=== PATIENT | male | born 1945 | race Caucasian/White ===

== ENCOUNTER 2024-06-07 13:19 | Inpatient (IN) | payer MEDICARE, SELFPAY ==
--- NOTE | 2024-06-07 | ECG_ITS ---
Test Reason : ARRYTHMIA Blood Pressure : */* mmHG Vent. Rate : 139 BPM Atrial Rate : * BPM P-R Int : * ms QRS Dur : 112 ms QT Int : 260 ms P-R-T Axes : * 45 -72 degrees QTcB Int : 395 ms Atrial fibrillation with rapid ventricular response Low voltage QRS Incomplete right bundle branch block Nonspecific T wave abnormality Abnormal ECG When compared with ECG of 07-Jun-2024 15:46, No significant change was found Referred By: Chris Musa Electronically Signed By: VELVET ZAMORANO MD
--- NOTE | ~2024-06-07 | CT_ITS ---
EXAMINATION: CT HEAD WITHOUT IV CONTRAST HISTORY: Change in mental status, rule out bleed, stroke. TECHNIQUE: Unenhanced helical CT of the head was performed per standard departmental protocol. Coronal and sagittal reformats of the head were also evaluated. One or more of the following techniques was used for dose reduction: Automated exposure control, adjustment of the mA and/or kV according to patient size, use of iterative reconstruction technique. DLP: 772 mGy-cm COMPARISON: There are no prior studies for comparison. FINDINGS: BRAIN: There is diffuse prominence of the ventricular system and cortical sulci, consistent with atrophy. Periventricular and subcortical white matter hypodensities are noted which are nonspecific, but often seen in the setting of small vessel ischemic disease. There is no mass effect or midline shift. No intra- or extra-axial fluid collections are identified. SINUSES: The visualized paranasal sinuses are clear. The mastoid air cells and middle ear cavities are well pneumatized. ORBITS: The visualized orbits are unremarkable. BONES/SOFT TISSUES: The extracranial soft tissues are unremarkable. The calvarium is intact. No suspicious lytic or sclerotic lesions. CT/CT head/brain wo IV con IMPRESSION: No acute intracranial abnormality. Electronically signed by: Steven Robins MD 06/07/2024 03:13 PM [facility]
--- NOTE | ~2024-06-07 | XR_ITS ---
EXAMINATION: XR CHEST CLINICAL INFORMATION: F/U acute CHF/overload, rapid a-fib COMPARISON: 06/07/2024. CT chest 06/07/2024. TECHNIQUE: AP portable view of the chest was obtained. FINDINGS: Cardiac enlargement noted. Mediastinal and hilar contours otherwise grossly normal. Aorta is calcified. Patchy left basilar opacities, possibly atelectasis versus pneumonia. No evidence of interstitial pulmonary edema. Trace left effusion seen. The right effusion seen on CT is not well appreciated on this portable chest x-ray. There are degenerative changes of the spine and bilateral shoulder joints. No acute bony or soft tissue abnormalities. XR/XR chest 1V IMPRESSION: 1. Cardiomegaly. No interstitial edema is evident. 2. Left base opacity, possibly atelectasis versus pneumonia. Small left effusion seen. 3. Right lung appears clear. 4. The right effusion seen on CT is not well appreciated on this AP portable exam. Electronically signed by: Tony Michele MD 06/10/2024 08:51 AM [facility] [place]
--- NOTE | ~2024-06-07 | XR_ITS ---
EXAMINATION: XR CHEST 1 VIEW HISTORY: Weakness, rule out pneumonia COMPARISON: There are no prior studies for comparison. FINDINGS: Two AP portable views of the chest performed at 3:00 PM is submitted. There is partial opacification of the left lung base which may represent atelectasis, pneumonia, or pleural fluid. The right lung is clear. There is no pneumothorax or pulmonary vascular congestion. The heart is normal in size. There is degenerative disc disease of the spine. XR/XR chest 1V IMPRESSION: Partial opacification of the left lung base, which may represent atelectasis, pneumonia, or pleural fluid. Electronically signed by: Steven Robins MD 06/07/2024 03:20 PM [facility]
--- NOTE | ~2024-06-07 | CT_ITS ---
CLINICAL HISTORY: pna CT chest without contrast Comparison: CR/SR - XR CHEST 1V - 06/07/24 14:59 EST Findings: Moderate cardiomegaly. The visualized thyroid and mediastinum are unremarkable. Small bilateral pleural effusions, right more than left. . There is associated atelectatic changes of the lungs. Small amount of free fluid is noted along the liver and the spleen. Cholelithiasis. No acute fractures. IMPRESSION: Small bilateral pleural effusions, and perihepatic as well as perisplenic free fluid along with moderate cardiomegaly likely represent fluid overload/CHF. No focal consolidation to suggest pneumonia. This document has been electronically signed by: Zenia Jiménez MD on 06/07/2024 19:21:05
--- NOTE | ~2024-06-07 | XR_ITS ---
CLINICAL HISTORY: Increased shortness of breath, repeat XR, R O CHF 1 view chest x-ray Comparison: CR/SR - XR CHEST 1V - 06/07/24 14:59 EST Findings: Moderate cardiomegaly. Slight interstitial prominence in both lungs. Small bilateral pleural effusions. Low lung volume. Heart size is normal. No acute fracture. IMPRESSION: Moderate cardiomegaly with small bilateral pleural effusions and interstitial prominence in both lungs may represent mild pulmonary edema/fluid overload. This document has been electronically signed by: Zeina Jiménez MD on 06/07/2024 19:38:41
--- NOTE | ~2024-06-07 | CT_ITS ---
EXAMINATION: CT ABDOMEN PELVIS WITHOUT IV CONTRAST HISTORY: sepsis, BLUE COMPARISON: There are no prior studies for comparison. TECHNIQUE: CT scan of the abdomen and pelvis was performed without contrast using standard departmental protocol. Coronal and sagittal reformatted images were generated and reviewed. Oral contrast material was not administered at the request of the referring physician. This CT exam was performed with one or more of the following dose reduction techniques: automated exposure control, adjustment of the mA and/or kV according to patient size, use of iterative reconstruction technique. DLP: 912 mGy-cm FINDINGS: LOWER CHEST: There are small bilateral pleural effusions. There is subsegmental atelectasis the lung bases. There are calcified pleural plaques at both lung bases consistent with prior as best as exposure. CARDIOVASCULATURE: The heart is enlarged. There is no pericardial effusion. LIVER: The liver is normal in size and contour. The liver has an unremarkable unenhanced appearance. GALLBLADDER / BILE DUCTS: There is cholelithiasis. There is no intra or extrahepatic biliary ductal dilatation. SPLEEN: The spleen is normal in size and has an unremarkable unenhanced appearance. PANCREAS: The pancreas has an unremarkable unenhanced appearance. ADRENAL GLANDS: Unremarkable. KIDNEYS/RETROPERITONEUM: No renal calculi are identified. There is no hydronephrosis. There is a 4.9 cm right renal parapelvic cyst. LYMPH NODES: No retroperitoneal lymphadenopathy is identified in the abdomen or pelvis. VASCULATURE: The abdominal aorta demonstrates atherosclerotic calcification, but is normal in caliber. MESENTERY/PERITONEUM: There is a small amount of fluid around the liver and spleen and in the pelvis. No masses. There is no free intraperitoneal gas. STOMACH: There is a small hiatal hernia. The remainder of the stomach is collapsed. SMALL BOWEL: The small bowel is normal in caliber. COLON: There is diverticulosis of the sigmoid colon, without evidence of diverticulitis. APPENDIX: Normal. URINARY BLADDER/PELVIC ORGANS: The urinary bladder is collapsed with a Arias catheter. There are calcifications of the prostate. BONES / SOFT TISSUES: There is anasarca. There is degenerative disc disease of the spine. There is severe osteoarthritis of both hips. CT/CT abdomen pelvis wo IV con IMPRESSION: 1. Small bilateral pleural effusions. Anasarca. 2. Small amount of ascites in the upper abdomen and pelvis. 3. Cholelithiasis. 4. Sigmoid diverticulosis without evidence of diverticulitis. Electronically signed by: Steven Robins MD 06/08/2024 02:58 PM EST
[2024-06-07 13:50] VITALS: BP 121/64; PULSE 120; O2SAT 97
[2024-06-07 14:26] VITALS: BP 133/70; PULSE 117; RESP 24; TEMP 36.7; O2SAT 96; BMI 24.0
--- NOTE | 2024-06-07 14:33 | ED_ITS ---
HPI - Altered Mental Status General Chief Complaint: Altered Mental Status Stated Complaint: SOB,WHEEZE,ALTERED,LETHARGIC,ANS ?'S FROM SNF Time Seen by Provider: 06/07/24 14:31 Source: patient Mode of arrival: EMS Limitations: altered mental status History of Present Illness ED Provider: Dr. Chris Musa HPI narrative: 78-year-old male with a history of diabetes mellitus, malnutrition, hypertension, hyperlipidemia, pulmonary hypertension, chronic kidney disease stage 3, paroxysmal atrial fibrillation, COPD, muscle wasting with atrophy, depression, systolic congestive heart failure, DNR/DNI sent in by ambulance from his [place] [facility] [place] [facility] facility [facility] for evaluation increased confusion over 2 days and shortness of breath. This information was obtained from ED nursing notes. I did review the paperwork sent in with the patient but there is no notes on patient's condition over the past 2 days. The patient states that he has been feeling weak for months. He has no complaints. He was oriented to person, he knows that he was in the hospital, he was able to tell me the month but not the year. He was able to tell me his age. Related Data Home Medications ?Medication ?Instructions ?Recorded ?Confirmed acetaminophen 325 mg tablet 975 mg PO Q8H PRN Fever Or Pain 06/07/24 06/07/24 apixaban 5 mg tablet (Eliquis) 5 mg PO BID 06/07/24 06/07/24 atorvastatin 20 mg tablet 20 mg PO BEDTIME 06/07/24 06/07/24 bisacodyl 10 mg rectal suppository 10 mg KS DAILY PRN Constipation 06/07/24 06/07/24 (Dulcolax (bisacodyl)) dapagliflozin propanediol 5 mg 5 mg PO DAILY 06/07/24 06/07/24 tablet (Farxiga) duloxetine 60 mg capsule,delayed 60 mg PO DAILY 06/07/24 06/07/24 release sprinkle finasteride 5 mg tablet 5 mg PO DAILY 06/07/24 06/07/24 furosemide 40 mg tablet 40 mg PO BID 06/07/24 06/07/24 gabapentin 100 mg capsule 100 mg PO Q8H 06/07/24 06/07/24 guaifenesin 100 mg/5 mL oral liquid 100 mg PO Q6H PRN Cough 06/07/24 06/07/24 ipratropium 0.5 mg-albuterol 3 mg 3 ml inhalation Q6H 06/07/24 06/07/24 (2.5 mg base)/3 mL nebulization soln lidocaine 4 % topical patch 1 patch topical DAILY 06/07/24 06/07/24 magnesium hydroxide 400 mg/5 mL 30 ml PO BEDTIME PRN Constipation 06/07/24 06/07/24 oral suspension (Milk of Magnesia) melatonin 5 mg tablet 5 mg PO BEDTIME 06/07/24 06/07/24 metformin 500 mg tablet,extended 500 mg PO BID 06/07/24 06/07/24 release 24 hr metoprolol tartrate 50 mg tablet 50 mg PO BID 06/07/24 06/07/24 oxycodone 5 mg tablet 5 mg PO Q8H PRN Pain 06/07/24 06/07/24 pantoprazole 40 mg tablet,delayed 40 mg PO DAILY 06/07/24 06/07/24 release potassium chloride 20 mEq 20 meq PO DAILY 06/07/24 06/07/24 tablet,extended release ropinirole 0.25 mg tablet 0.25 mg PO BEDTIME 06/07/24 06/07/24 sodium phosphates 19 gram-7 118 ml KS DAILY PRN Constipation 06/07/24 06/07/24 gram/118 mL enema (Fleet Enema) tamsulosin 0.4 mg capsule 0.8 mg PO BEDTIME 06/07/24 06/07/24 triamcinolone acetonide 40 mg/mL 40 mg IM DAILY 06/07/24 06/07/24 suspension for injection Allergies Allergy/AdvReac Type Severity Reaction Status Date / Time lisinopril Allergy Unknown Verified 06/07/24 14:28 [facility] Social History Social History Smoked in Last 30 Days: No Use of substances other than those prescribed or required for medical reasons: No Advance Directives: No Advance Directives Information Provided: Yes Physical Exam ED Vital Signs: Vital Signs - 24 hr 06/07/24 14:26 06/07/24 20:00 06/07/24 21:09 Temperature 98.1 F 97.6 F Pulse Rate 117 H 126 H 145 H Respiratory Rate 24 H 25 H Blood Pressure 133/70 107/68 118/84 Pulse Oximetry 96 97 Oxygen Delivery Method Room Air Room Air 06/07/24 21:25 Temperature Pulse Rate Respiratory Rate Blood Pressure 117/81 Pulse Oximetry Oxygen Delivery Method BMI result Body Mass Index 24.0 Vital signs revealed elevated heart rate of 117 and elevated respiratory rate of 24 Exam: General: Awake, oriented to person, age and month but not the year. Answers questions appropriately Head: Normocephalic, atraumatic EENT: PERRL, Lids normal, sclera normal, conjunctiva normal, nose normal , ears normal, throat without erythema or exudates Neck: Supple, no adenopathy Lung: breath sounds symmetric, no wheezing, rales or rhonchi Chest: symmetric movement, nontender Heart: regular rate and rhythm, normal S1, S2 no murmurs or rubs Abdomen: soft, non-tender, nondistended, normal bowel sounds Back: no vertebral tenderness, no CVAT Extremities: no deformities, moves all extremities symmetrically but has generalized weakness Neuro: Awake, alert, speech is slow but comprehensible, no aphasia, no dysarthria, cranial nerves intact, moves all extremities symmetrically Psych: Pleasant, cooperative Medications Administered Discontinued Medications Generic Name Dose Route Start Last Admin Trade Name Freq PRN Reason Stop Dose Admin Ceftriaxone Sodium 1 gm 06/07/24 16:25 06/07/24 17:59 Ceftriaxone Sodium 1 Gm Vial IVPUSH 06/07/24 16:26 1 gm ONCE ONE Administration Furosemide 60 mg 06/07/24 21:11 06/07/24 21:25 Furosemide 100 Mg/10 Ml Vial IVPUSH 06/07/24 21:12 60 mg ONCE ONE Administration Protocol Sodium Chloride 1,000 mls @ 999 mls/hr 06/07/24 14:42 06/07/24 17:55 Ns IV 06/07/24 15:42 Infused .Q1H1M STA Infusion Azithromycin 500 mg/ Sodium 250 mls @ 125 mls/hr 06/07/24 16:25 06/07/24 20:00 Chloride IV 06/07/24 18:24 Infused ONCE ONE Infusion Medical Decision Making Medical Decision Making MDM Narrative: 78-year-old male with a history of diabetes mellitus, malnutrition, hypertension, hyperlipidemia, pulmonary hypertension, chronic kidney disease stage 3, paroxysmal atrial fibrillation, COPD, muscle wasting with atrophy, depression, systolic congestive heart failure, DNR/DNI sent in by ambulance from his [place] [facility] [place] facility facility [facility] for evaluation increased confusion over 2 days and shortness of breath. This information was obtained from ED nursing notes. I did review the paperwork sent in with the patient but there is no notes on patient's condition over the past 2 days. Vital signs revealed an elevated heart rate and elevated respiratory rate otherwise was unremarkable. Physical examination revealed a slow speech and generalized weakness but otherwise was unremarkable. 16:22 Differential diagnosis: ?Includes but is not limited to stroke, myocardial infarction, myocardial ischemia, pneumonia, urinary tract infections, electrolyte abnormalities, anemia Course: 16:22 My independent interpretation patient's laboratory evaluation is as follows: 06/07/2024 at 05:00 WBC elevated 17,900 with a left shift 86 neutrophils and 5 lymphocytes. Elevated BUN and creatinine of 46 and 2.0 above the patient's baseline of 25 and 1.61 on 06/02/2024. Glucose was elevated 165. 06/07/2024 at 17:26 hours: Lactic acid elevated 5.4. WBC elevated 17,300. Microcytic anemia with an H&H of 11.3 and 35.5. Venous pH was 7.40 with a pCO2 Influenza, RSV and COVID-19 negative. BNP was elevated 4751. LFTs were normal. BUN and creatinine were similar to earlier in the day 48 and 1.92. BNP was elevated 4751. Troponin was elevated at 48.1 with 3 hour troponin due at 19:15 hours. The patient did receive 1750 cc of normal saline. Given his low EF of 20% and elevated BNP the patient will not be given a 30 cc/kilogram normal saline bolus due to systolic congestive heart failure. Patient will be treated for possible pneumonia with ceftriaxone 1 IV and azithromycin 500 mg IV. Chest x-ray concerning for left lower lobe infiltrate. Patient was treated with ceftriaxone 1 g IV and azithromycin 500 mg IV. I did discuss the patient's presentation over tiger text with the covering hospitalist, Dr. Owusu and the patient will be admitted for further treatment 19:43 Repeat chest x-ray on my review did not reveal any acute congestive heart failure 20:40 Repeat troponin was not significantly changed from the 1st troponin. Repeat lactic acid did go up to 8.6. Urinalysis revealed positive protein, positive glucose, positive blood, moderate leukocyte esterase. Microscopic revealed 3-5 WBCs, 6-10 RBCs, 0-2 squamous cells and 4+ bacteria. 21:[address] scan chest in his consistent with CHF. Patient was ordered to get Lasix 60 mg IV. Repeat 12 EKG revealed atrial fibrillation with a rapid ventricular response of [address] segment elevation or depression. And I did discuss these findings with the covering hospitalist, Dr. Choi. Admission/Observation Consideration of admission/observation: Escalation of care including admission/observation considered (Yes) Consult Healthcare Provider Management of the patient was discussed with: Hospitalist Lab Data MDM Lab Attestation statement: I reviewed the patient's lab results. 06/07/24 17:26 06/07/24 17:26 Labs: Lab Results 06/07/24 06/07/24 06/07/24 Range/Units 16:16 16:17 17:26 WBC 17.3 H (4.8-10.8) X10*3/uL RBC 4.56 L (4.60-5.80) X10*6/uL Hgb 11.1 L (14.0-18.0) g/dl Hct 35.5 L (42.0-52.0) % MCV 77.9 L (80.0-98.0) fL MCH 24.3 L (27.0-33.0) pg MCHC 31.3 (31.0-36.0) g/dl RDW 22.0 H (11.0-16.0) % Plt Count 134 L (160-400) X10*3/uL MPV 10.8 (9.4-12.4) fL Immature Gran % (Auto) 0.9 H (0.0-0.4) % Neut % (Auto) 90.7 H (45-73) % Lymph % (Auto) 4.1 L (20-40) % [place] % (Auto) 3.4 (2-11) % Eos % (Auto) 0.7 (0-4) % Baso % (Auto) 0.2 (0-2) % Lymph # (Auto) 0.7 L (1.2-4.9) X10*3/uL [place] # (Auto) 0.6 (0.1-1.2) X10*3/uL Eos # (Auto) 0.1 (0.0-0.4) X10*3/uL Baso # (Auto) 0.0 (0.0-0.2) X10*3/uL Abs Immat Gran (auto) 0.15 H (0.00-0.03) X10*3/uL Absolute Neuts (auto) 15.7 H (2.0-8.3) x10*3/uL Absolute Nucleated RBC 0.030 H (0.0-0.012) X10*3/uL Nucleated RBC % (auto) 0.2 (0.0-0.2) /100WBC Smear Tech's Comments VERIFIED APTT 34.9 (26.0-36.8) SEC O2 Saturation % ABG pH at Pt Temp (7.35-7.45) ABG pCO2 at Pt Temp (32-45) mmHg ABG pO2 at Pt Temp (83-108) mmHg ABG HCO3 (22-26) mmol/L ABG Base Excess (Actual) mmol/L VBG pH (7.32-7.43) VBG pCO2 mmHg VBG pO2 mmHg VBG HCO3 (22-26) mmol/L VBG O2 Saturation % VBG Base Excess mmol/L Sodium 138 (135-145) mmol/L Potassium 4.4 (3.3-5.1) mmol/L Chloride 98 (96-108) mmol/L Carbon Dioxide 20 L (22-29) mmol/L Anion Gap 24 H (12-20) BUN 48 H (9-16) mg/dL Creatinine 1.92 H (0.5-1.4) mg/dL Estim Creat Clear Calc 33.7 Estimated GFR 34 Random Glucose 196 H (60-115) mg/dL Lactic Acid 5.4 H* (0.5-2.0) mmol/L Lactic Acid F/U @ 2Hr (0.5-2.0) mmol/L Lactic Acid F/U @ 4Hr (0.5-2.0) mmol/L Calcium 8.7 (8.4-10.2) mg/dL Total Bilirubin 1.7 H (0.0-1.0) mg/dL AST 22 (5-37) U/L ALT < 6 (0-40) U/L Alkaline Phosphatase 97 (39-117) U/L Total Creatine Kinase 60 (38-174) U/L Troponin I High Sens 48.1 H (<3.5-35.0) ng/L B-Natriuretic Peptide 4751 H (<100) pg/mL Total Protein 7.5 (6.5-8.0) g/dL Albumin 3.7 (3.5-5.0) g/dL Lipase 4 L (8-78) U/L Urine Color Urine Appearance Urine pH (5.0-9.0) Ur Specific [place] (1.005-1.025) Urine Protein (Neg-Trace) mg/dL Urine Glucose (UA) (Negative) mg/dL Urine Ketones (Negative) mg/dL Urine Blood (Negative) Urine Nitrite (Negative) Ur Leukocyte Esterase (Negative) Urine RBC (0-2) /HPF Urine WBC (0-5) /HPF Ur Squamous Epith Cells (0-2) /HPF Urine Bacteria (None Seen) Hyaline Casts (0-2) /LPF Influenza Type A (PCR) NEGATIVE (Negative) Influenza Type B (PCR) NEGATIVE (Negative) RSV RNA Qual (PCR) NEGATIVE (Negative) SARS-CoV-2 RNA (RT-PCR) NEGATIVE (Negative) 06/07/24 06/07/24 06/07/24 Range/Units 17:32 19:51 20:06 WBC (4.8-10.8) X10*3/uL RBC (4.60-5.80) X10*6/uL Hgb (14.0-18.0) g/dl Hct (42.0-52.0) % MCV (80.0-98.0) fL MCH (27.0-33.0) pg MCHC (31.0-36.0) g/dl RDW (11.0-16.0) % Plt Count (160-400) X10*3/uL MPV (9.4-12.4) fL Immature Gran % (Auto) (0.0-0.4) % Neut % (Auto) (45-73) % Lymph % (Auto) (20-40) % [place] % (Auto) (2-11) % Eos % (Auto) (0-4) % Baso % (Auto) (0-2) % Lymph # (Auto) (1.2-4.9) X10*3/uL [place] # (Auto) (0.1-1.2) X10*3/uL Eos # (Auto) (0.0-0.4) X10*3/uL Baso # (Auto) (0.0-0.2) X10*3/uL Abs Immat Gran (auto) (0.00-0.03) X10*3/uL Absolute Neuts (auto) (2.0-8.3) x10*3/uL Absolute Nucleated RBC (0.0-0.012) X10*3/uL Nucleated RBC % (auto) (0.0-0.2) /100WBC Smear Tech's Comments APTT (26.0-36.8) SEC O2 Saturation % ABG pH at Pt Temp (7.35-7.45) ABG pCO2 at Pt Temp (32-45) mmHg ABG pO2 at Pt Temp (83-108) mmHg ABG HCO3 (22-26) mmol/L ABG Base Excess (Actual) mmol/L VBG pH 7.40 (7.32-7.43) VBG pCO2 31 mmHg VBG pO2 29 mmHg VBG HCO3 20 L (22-26) mmol/L VBG O2 Saturation 38.0 % VBG Base Excess -3.6 mmol/L Sodium (135-145) mmol/L Potassium (3.3-5.1) mmol/L Chloride (96-108) mmol/L Carbon Dioxide (22-29) mmol/L Anion Gap (12-20) BUN (9-16) mg/dL Creatinine (0.5-1.4) mg/dL Estim Creat Clear Calc Estimated GFR Random Glucose (60-115) mg/dL Lactic Acid (0.5-2.0) mmol/L Lactic Acid F/U @ 2Hr 8.6 H* (0.5-2.0) mmol/L Lactic Acid F/U @ 4Hr (0.5-2.0) mmol/L Calcium (8.4-10.2) mg/dL Total Bilirubin (0.0-1.0) mg/dL AST (5-37) U/L ALT (0-40) U/L Alkaline Phosphatase (39-117) U/L Total Creatine Kinase (38-174) U/L Troponin I High Sens 41.9 H (<3.5-35.0) ng/L B-Natriuretic Peptide (<100) pg/mL Total Protein (6.5-8.0) g/dL Albumin (3.5-5.0) g/dL Lipase (8-78) U/L Urine Color Yellow Urine Appearance Clear Urine pH 6.0 (5.0-9.0) Ur Specific [place] 1.020 (1.005-1.025) Urine Protein 100 (2+) H (Neg-Trace) mg/dL Urine Glucose (UA) 100 H (Negative) mg/dL Urine Ketones Negative (Negative) mg/dL Urine Blood Large (3+) H (Negative) Urine Nitrite Negative (Negative) Ur Leukocyte Esterase Moderate (2+) H (Negative) Urine RBC 3-5 H (0-2) /HPF Urine WBC 6-10 (0-5) /HPF Ur Squamous Epith Cells 0-2 (0-2) /HPF Urine Bacteria 4+ (None Seen) Hyaline Casts 0-2 (0-2) /LPF Influenza Type A (PCR) (Negative) Influenza Type B (PCR) (Negative) RSV RNA Qual (PCR) (Negative) SARS-CoV-2 RNA (RT-PCR) (Negative) 06/07/24 06/07/24 06/07/24 Range/Units 22:14 23:42 23:46 WBC (4.8-10.8) X10*3/uL RBC (4.60-5.80) X10*6/uL Hgb (14.0-18.0) g/dl Hct (42.0-52.0) % MCV (80.0-98.0) fL MCH (27.0-33.0) pg MCHC (31.0-36.0) g/dl RDW (11.0-16.0) % Plt Count (160-400) X10*3/uL MPV (9.4-12.4) fL Immature Gran % (Auto) (0.0-0.4) % Neut % (Auto) (45-73) % Lymph % (Auto) (20-40) % [place] % (Auto) (2-11) % Eos % (Auto) (0-4) % Baso % (Auto) (0-2) % Lymph # (Auto) (1.2-4.9) X10*3/uL [place] # (Auto) (0.1-1.2) X10*3/uL Eos # (Auto) (0.0-0.4) X10*3/uL Baso # (Auto) (0.0-0.2) X10*3/uL Abs Immat Gran (auto) (0.00-0.03) X10*3/uL Absolute Neuts (auto) (2.0-8.3) x10*3/uL Absolute Nucleated RBC (0.0-0.012) X10*3/uL Nucleated RBC % (auto) (0.0-0.2) /100WBC Smear Tech's Comments APTT (26.0-36.8) SEC O2 Saturation 97.0 % ABG pH at Pt Temp 7.35 (7.35-7.45) ABG pCO2 at Pt Temp 21 L (32-45) mmHg ABG pO2 at Pt Temp 91 (83-108) mmHg ABG HCO3 12 L (22-26) mmol/L ABG Base Excess (Actual) -11.1 mmol/L VBG pH 7.32 (7.32-7.43) VBG pCO2 35 mmHg VBG pO2 29 mmHg VBG HCO3 18 L (22-26) mmol/L VBG O2 Saturation 33.0 % VBG Base Excess -6.5 mmol/L Sodium (135-145) mmol/L Potassium (3.3-5.1) mmol/L Chloride (96-108) mmol/L Carbon Dioxide (22-29) mmol/L Anion Gap (12-20) BUN (9-16) mg/dL Creatinine (0.5-1.4) mg/dL Estim Creat Clear Calc Estimated GFR Random Glucose (60-115) mg/dL Lactic Acid (0.5-2.0) mmol/L Lactic Acid F/U @ 2Hr (0.5-2.0) mmol/L Lactic Acid F/U @ 4Hr 8.2 H* (0.5-2.0) mmol/L Calcium (8.4-10.2) mg/dL Total Bilirubin (0.0-1.0) mg/dL AST (5-37) U/L ALT (0-40) U/L Alkaline Phosphatase (39-117) U/L Total Creatine Kinase (38-174) U/L Troponin I High Sens (<3.5-35.0) ng/L B-Natriuretic Peptide (<100) pg/mL Total Protein (6.5-8.0) g/dL Albumin (3.5-5.0) g/dL Lipase (8-78) U/L Urine Color Urine Appearance Urine pH (5.0-9.0) Ur Specific [place] (1.005-1.025) Urine Protein (Neg-Trace) mg/dL Urine Glucose (UA) (Negative) mg/dL Urine Ketones (Negative) mg/dL Urine Blood (Negative) Urine Nitrite (Negative) Ur Leukocyte Esterase (Negative) Urine RBC (0-2) /HPF Urine WBC (0-5) /HPF Ur Squamous Epith Cells (0-2) /HPF Urine Bacteria (None Seen) Hyaline Casts (0-2) /LPF Influenza Type A (PCR) (Negative) Influenza Type B (PCR) (Negative) RSV RNA Qual (PCR) (Negative) SARS-CoV-2 RNA (RT-PCR) (Negative) Independent Interpretation I performed an independent interpretation of an: EKG and Plain X-Ray Interpretation: Chest x-ray: Left lower lobe infiltrate My independent interpretation of the patient's 12 EKG done at 15:46 hours is as follows: Atrial fibrillation with a ventricular rate of 118, prolonged QRS of 102 milliseconds, normal QTC of 375 milliseconds, Q-waves in V1. no ST segment elevation, no ST segment depression,QR V1. No old EKG for comparison Radiology Impression Discussion of test interpretation with radiology: I have reviewed the radiologist's reading. Radiologist Impression: CT head/brain wo IV con IMPRESSION: No acute intracranial abnormality. Electronically signed by: Steven Robins MD 06/07/2024 03:13 PM EST XR chest 1V IMPRESSION: Partial opacification of the left lung base, which may represent atelectasis, pneumonia, or pleural fluid. Electronically signed by: Steven Robins MD 06/07/2024 03:20 PM EST Independent Historian Clinical information obtained from an independent historian. History obtained from or confirmed by: Spouse Chronic Conditions Patient?s care impacted by: Other (Congestive heart failure) Critical Care Time Critical Care Time Critical Care Time: Yes Total Critical Care Time: 45 Attestation: Critical Care: The patient was critically ill with a high probability of imminent or life threatening deterioration. I spent greater than 30 minutes of discontinuous time evaluating the patient,delivering critical care at the bedside, discussing and evaluating pertinent data with consultants. Critical care time does not include time spent performing separately billable procedures or teaching. Total time spent performing critical care was minutes. Discharge Plan Discharge Clinical Impression: Acute kidney injury superimposed on chronic kidney disease, Urinary tract infection, Congestive heart failure Pneumonia Qualifiers: Pneumonia type: due to unspecified organism Laterality: left Lung location: l ower lobe of lung Qualified Code(s): J18.9 - Pneumonia, unspecified organism Altered mental status Qualifiers: Altered mental status type: unspecified Qualified Code(s): R41.82 - Altered mental status, unspecified Patient Disposition: Admitted As Inpatient Print Language: Syriac Sepsis Bolus Exclusion Sepsis Bolus Exclusion CHF/Renal Failure This patient met severe sepsis criteria due to the following condition(s):: L actate>=4mmol/L In my clinical judgement the administration of 30 ml/kg of crystalloid would be detrimental to this patient due to the patient's following conditions:: NYHA class III or IV Heart Failure(symptoms with low exertion or rest) Replace the 30 mls/kg with (Zero amount not acceptable and all fluids for severe sepsis must be given at GREATER than 125 mls/hr) Crystalloids amount given in mls: (rate must be at least 150cc/hr): 1,750 Colloids amount given in mls:: 1,750
--- NOTE | 2024-06-07 14:44 | ECG_ITS ---
Test Reason : SOB Blood Pressure : */* mmHG Vent. Rate : 118 BPM Atrial Rate : * BPM P-R Int : * ms QRS Dur : 102 ms QT Int : 268 ms P-R-T Axes : * 25 225 degrees QTcB Int : 375 ms Atrial fibrillation with rapid ventricular response Incomplete right bundle branch block Cannot rule out Anterior infarct , age undetermined Abnormal ECG No previous ECGs available Referred By: Chris Musa Electronically Signed By: VELVET ZAMORANO MD
[2024-06-07] MEDS: 0.9 % Sodium Chloride 1,000 ML 999 ML IV (15:31)
[2024-06-07 17:05] LABS: Lactic Acid 5.4 mmol/L (0.5-2.0)
--- NOTE | 2024-06-07 17:05 | PC.NURSE ---
Pt is a very difficult stick making it challenging to obtain 2ns set of blood cultures. Abx administration behind schedule d/t the above information. Additional staff solicited for another attempt. Abx to be administered once final set of blood cultures is obtained.
[2024-06-07 17:09] LABS: Influenza A PCR NEGATIVE (Negative); Influenza B PCR NEGATIVE (Negative); Resp Syncy Virus RNA Qual PCR NEGATIVE (Negative); SARS COV2 PCR INHOUSE NEGATIVE (Negative)
[2024-06-07 17:42] LABS: VBG Base Excess -3.6 mmol/L; VBG HCO3 20 mmol/L (22-26); VBG pCO2 31 mmHg; VBG pO2 29 mmHg
[2024-06-07 17:44] LABS: Basophils Percent Auto 0.2 % (0-2); Eosinophils Absolute Auto 0.1 X10*3/uL (0.0-0.4); Eosinophils Percent Auto 0.7 % (0-4); Hematocrit 35.5 % (42.0-52.0); Hemoglobin 11.1 g/dl (14.0-18.0); Imm Gran Abs Auto 0.15 X10*3/uL (0.00-0.03); Imm Gran Pct Auto 0.9 % (0.0-0.4); Lymphocytes Absolute Auto 0.7 X10*3/uL (1.2-4.9); Lymphocytes Percent Auto 4.1 % (20-40); MANUAL DIFF FLAG SCAN; Mean Corpuscular HGB Conc 31.3 g/dl (31.0-36.0); Mean Corpuscular Hemoglobin 24.3 pg (27.0-33.0); Mean Corpuscular Volume 77.9 fL (80.0-98.0); Mean Platelet Volume 10.8 fL (9.4-12.4); Monocytes Absolute Auto 0.6 X10*3/uL (0.1-1.2); Monocytes Percent Auto 3.4 % (2-11); NRBC Pct Auto 0.2 /100WBC (0.0-0.2); Neutrophils Absolute Auto 15.7 x10*3/uL (2.0-8.3); Neutrophils Percent Auto 90.7 % (45-73); Platelet Count 134 X10*3/uL (160-400); Red Blood Count 4.56 X10*6/uL (4.60-5.80); SCAN SMEAR FLAG 1; White Blood Count 17.3 X10*3/uL (4.8-10.8)
[2024-06-07 17:46] LABS: Venous Blood Gas Refer to POC result
[2024-06-07 17:54] LABS: Partial Thromboplastin Time 34.9 SEC (26.0-36.8)
[2024-06-07] MEDS: Azithromycin 500 MG in 0.9 % Sodium Chloride 250 ML 125 MG IV (17:59)
[2024-06-07] MEDS: cefTRIAXone sodium 1 GM VIAL IVPUSH (17:59)
[2024-06-07 18:00] LABS: Alanine Aminotransferase < 6 U/L (0-40); Albumin Level 3.7 g/dL (3.5-5.0); Alkaline Phosphatase 97 U/L (39-117); Anion Gap 24 (12-20); Aspartate Amino Transferase 22 U/L (5-37); B Type Natriuretic Peptide 4751 pg/mL (<100); Bilirubin Total 1.7 mg/dL (0.0-1.0); Blood Urea Nitrogen 48 mg/dL (9-16); Calcium 8.7 mg/dL (8.4-10.2); Carbon Dioxide 20 mmol/L (22-29); Chloride 98 mmol/L (96-108); Creatinine Clr Calc Pharmacy 33.7; Estimated Glomerular Filt Rate 34; Glucose Random 196 mg/dL (60-115); Lipase 4 U/L (8-78); Potassium 4.4 mmol/L (3.3-5.1); Sodium 138 mmol/L (135-145); Total Protein 7.5 g/dL (6.5-8.0)
[2024-06-07 18:09] LABS: SLIDE REVIEW VERIFIED
[2024-06-07 18:22] LABS: Reflex Lactate? Lactic Acid Added
[2024-06-07 18:44] LABS: Troponin-I High Sensitivity 48.1 ng/L (<3.5-35.0)
--- OUTSIDE RECORDS SUMMARY | 2024-06-07 18:46 | XMS_ITS | Clinical Summary ---
Author Organization Unknown Care Team Providers Care Alteration Specialist Name Role Phone TONY QUINTERO, BROOK Unavailable Unavailable KENIA ARMENDARIZ, BRET Unavailable Unavail able ALESSIA RN, ROSALINO Unavailable Unavailable DALTON MELTON, RHONDA Unavailable Unavailable Payers Payer Name Policy Type Policy Number Effective Date Expira tion Date MEDICARE - [place] - PDGM [id number] Problems Condition Name Condition Details Condition Category Status Onset Date Resolution Date Last Treatment Date Treating Clinician Comments TYPE 2 DIABETES W DIABETIC PERIPHERAL ANGIOPATH W/O GANGRENE Active 05-24 00:00: 00 VENOUS INSUFFICIENC Y (CHRONIC) (PERIPHERAL) Active 3-02 00:00: 00 OTHER INTERVERTEBR AL DISC DEGENERATION , LUMBAR REGION Active - 00:00: 00 RESTLESS LEGS SYNDROME Active 05-24 00:00: 00 OBSTRUCTIVE SLEEP APNEA (ADULT) (PEDIATRIC) Active - 00:00: 00 CHRONIC PAIN SYNDROME Active 5- 00:00: 00 PURE HYPERCHOLEST EROLEMIA, UNSPECIFIED Active 05-24 00:00: 00 ANEMIA, UNSPECIFIED Active - 00:00: 00 PAROXYSMAL ATRIAL FIBRILLATION Active 05-24 00:00: 00 HYPERTENSIVE HEART DISEASE WITH HEART FAILURE Active - 00:00: 00 CHRONIC SYSTOLIC (CONGESTIVE) HEART FAILURE Active - 00:00: 00 UNSPECIFIED ASTHMA, UNCOMPLICATE D Active - 00:00: 00 SECONDARY PULMONARY ARTERIAL HYPERTENSION Active - 00:00: 00 GASTRO-ESOPH AGEAL REFLUX DISEASE WITHOUT ESOPHAGITIS Active - 00:00: 00 ALCOHOL USE, UNSPECIFIED, UNCOMPLICATE D Active 09-16 00:00: 00 MORBID (SEVERE) OBESITY DUE TO EXCESS CALORIES Active 05-24 00:00: 00 BODY MASS INDEX [BMI] 33.0-33.9, ADULT Active 05-24 00:00: 00 [facility] (CURRENT) USE OF ORAL HYPOGLYCEMIC DRUGS Active 05-24 00:00: 00 PERSONAL HISTORY OF NICOTINE DEPENDENCE Active 05-24 00:00: 00 Allergies, Adverse Reactions, Alerts Allergy Name Allergy Type Status Severity Reaction(s) Onset Date Inactive Date Treating Clinician Comments LISINOPRIL Propensity to adverse reactions Active 05-24 12:45: 33 Medications Ordered Medication Name Filled Medication Name Start Date Stop Date Current Medication? Ordering Clinician Indication Dosage Frequency Signature (SIG) Comments Components digoxin 125 mcg (0.125 mg) tablet 2021-05 00:00: 00 03-04 23:59 :00 No [id number] 125 tablet DAILY 125 tablet DAILY (route: oral) Med Classific ation: Cardiovas cular Therapy Agents diltiazem CD 240 mg capsule,ext ended release 24 hr 2021-05 00:00: 00 03-04 23:59 :00 No [id number] 240 capsule BEDTIME 240 capsule BEDTIME (route: oral) Med Classific ation: Cardiovas cular Therapy Agents glipizide ER 10 mg tablet, extended release 24 hr 2021-05 00:00: 00 03-04 23:59 :00 No [id number] 10 tablet 2 TIMES DAILY 10 tablet 2 TIMES DAILY (route: oral) Med Classific ation: Endocrine hydralazine 25 mg tablet 2021-05 00:00: 00 03-04 23:59 :00 No [id number] 25 tablet 2 TIMES DAILY 25 tablet 2 TIMES DAILY (route: oral) Med Classific ation: Cardiovas cular Therapy Agents Januvia 100 mg tablet 2021-05 00:00: 00 03-04 23:59 :00 No [id number] 100 tablet DAILY 100 tablet DAILY (route: oral) Med Classific ation: Endocrine lovastatin 20 mg tablet 2021-05 00:00: 00 03-04 23:59 :00 No [id number] 20 tablet BEDTIME 20 tablet BEDTIME (route: oral) Med Classific ation: Cardiovas cular Therapy Agents metformin ER 500 mg tablet,exte nded release 24 hr 2021-05-16 00:00: 00 03-04 23:59 :00 No [id number] 500 tablet 2 TIMES DAILY 500 tablet 2 TIMES DAILY (route: oral) Med Classific ation: Endocrine metoprolol succinate ER 200 mg tablet,exte nded release 24 hr 2021-05-16 00:00: 00 05-24 00:00 :00 No [id number] 25 tablet 25 tablet (route: oral) Med Classific ation: Cardiovas cular Therapy Agents pantoprazol e 40 mg tablet,shanita yed release 2021-05 00:00: 00 03-04 23:59 :00 No [id number] 40 tablet DAILY 40 tablet DAILY (route: oral) Alternate Route: NONE. Med Classific ation: Gastroint estinal Therapy Agents ropinirole 0.25 mg tablet 2021-05 00:00: 00 03-04 23:59 :00 No [id number] .25 tablet BEDTIME .25 tablet BEDTIME (route: oral) Med Classific ation: Central Nervous System Agents tamsulosin 0.4 mg capsule 2021-05 00:00: 00 03-04 23:59 :00 No [id number] 0.4 capsule EVERY PM 0.4 capsule EVERY PM (route: oral) Med Classific ation: Genitouri nary Therapy metoprolol succinate ER 25 mg tablet,exte nded release 24 hr - 00:00: 00 03-04 23:59 :00 No [id number] 25 tablet DAILY 25 tablet DAILY (route: oral) Med Classific ation: Cardiovas cular Therapy Agents furosemide 20 mg tablet 05-24 00:00: 00 06-06 00:00 :00 No [id number] 20 tablet DAILY 20 tablet DAILY (route: oral) Med Classific ation: Cardiovas cular Therapy Agents Lasix 40 mg tablet 06-06 00:00: 00 03-04 23:59 :00 No [id number] 1 tablet DAILY 1 tablet DAILY (route: oral) Med Classific ation: Cardiovas cular Therapy Agents Immunizations Ordered Immunization Name Filled Immunization Name Date Status Comments Refusal Reason PNEUMOCOCCAL (PPV), PPV 2022-05-24 00:00:00 INFLUENZA, TIV (INACTIVATED) 2022-02-06 00:00:00 Vital Signs Vital Name Observation Time Observation Value Commen ts Temperature 2022-11-18 12:41:00.000 97.8 [degF] Temperature 2022-11-11 14:18:00.000 97.7 [degF] Temperature 2022-11-04 10:52:00.000 97.2 [degF] Temperature 2022-10-28 12:02:00.000 97.9 [degF] Temperature 2022-10-21 15:48:00.000 97 [degF] Temperature 2022-10-16 10:06:00.000 97.4 [degF] Temperature 2022-10-07 10:41:00.000 97.2 [degF] Temperature 2022-09-30 10:33:00.000 97.5 [degF] Temperature 2022-09-23 17:50:00.000 97.2 [degF] Pulse 2022-11-18 12:41:00.000 69 /min Pulse 2022-11-11 14:18:00.000 77 /min Pulse 2022-11-04 10:52:00.000 86 /min Pulse 2022-10-28 12:02:00.000 68 /min Pulse 2022-10-21 15:48:00.000 65 /min Pulse 2022-10-16 10:06:00.000 70 /min Pulse 2022-10-07 10:41:00.000 88 /min Pulse 2022-09-30 10:33:00.000 66 /min Pulse 2022-09-23 17:50:00.000 86 /min O2 Saturation (%) 2022-11-11 14:18:00.000 96 % O2 Saturation (%) 2022-11-04 10:52:00.000 99 % O2 Saturation (%) 2022-10-21 15:48:00.000 98 % O2 Saturation (%) 2022-10-16 10:06:00.000 99 % O2 Saturation (%) 2022-10-07 10:41:00.000 99 % O2 Saturation (%) 2022-09-30 10:33:00.000 99 % O2 Saturation (%) 2022-09-23 17:50:00.000 97 % Respirations 2022-11-18 12:41:00.000 16 /min Respirations 2022-11-11 14:18:00.000 16 /min Respirations 2022-11-04 10:52:00.000 18 /min Respirations 2022-10-28 12:02:00.000 18 /min Respirations 2022-10-21 15:48:00.000 18 /min Respirations 2022-10-16 10:06:00.000 18 /min Respirations 2022-10-07 10:41:00.000 18 /min Respirations 2022-09-30 10:33:00.000 16 /min Respirations 2022-09-23 17:50:00.000 18 /min Systolic Blood Pressure 2022-11-18 12:41:00.000 126 mm [Hg] Systolic Blood Pressure 2022-11-11 14:18:00.000 132 mm [Hg] Systolic Blood Pressure 2022-11-04 10:52:00.000 134 mm [Hg] Systolic Blood Pressure 2022-10-28 12:02:00.000 130 mm [Hg] Systolic Blood Pressure 2022-10-21 15:48:00.000 142 mm [Hg] Systolic Blood Pressure 2022-10-16 10:06:00.000 152 mm [Hg] Systolic Blood Pressure 2022-10-07 10:41:00.000 152 mm [Hg] Systolic Blood Pressure 2022-09-30 10:33:00.000 150 mm [Hg] Systolic Blood Pressure 2022-09-23 17:50:00.000 138 mm [Hg] Diastolic Blood Pressure 2022-11-18 12:41:00.000 68 mm [Hg] Diastolic Blood Pressure 2022-11-11 14:18:00.000 72 mm [Hg] Diastolic Blood Pressure 2022-11-04 10:52:00.000 68 mm [Hg] Diastolic Blood Pressure 2022-10-28 12:02:00.000 78 mm [Hg] Diastolic Blood Pressure 2022-10-21 15:48:00.000 70 mm [Hg] Diastolic Blood Pressure 2022-10-16 10:06:00.000 82 mm [Hg] Diastolic Blood Pressure 2022-10-07 10:41:00.000 82 mm [Hg] Diastolic Blood Pressure 2022-09-30 10:33:00.000 78 mm [Hg] Diastolic Blood Pressure 2022-09-23 17:50:00.000 80 mm [Hg] Plan of Treatment Planned Activity Planned Date Details Comments Future Scheduled Test SKILLED NU RSE TO EVALUATE PATIENT, IDENTIFY PRIMARY AND CO-MORBID CONDITIONS CODED PER CODING GUIDELINES, AND DEVELOP PATIENT SPECIFIC PLAN OF CARE THAT INCLUDES PATIENT GOAL FOR HOME HEALTH. [code = SKILLED NURSE TO EVALUATE PATIENT, IDENTIFY PRIMARY AND CO-MORBID CONDITIONS CODED PER CODING GUIDELINES, AND DEVELOP PATIENT SPECIFIC PLAN OF CARE THAT INCLUDES PATIENT GOAL FOR HOME HEALTH.] Future Scheduled Test SKILLED NU RSE FOR O/A OF LOWER EXTREMITIES TO IDENTIFY CHANGES OR LESIONS ASSOCIATED WITH DIABETES MELLITUS FOR EARLY INTERVENTIONS OF COMPLICATIONS. SKILLED NURSE TO PROVIDE INSTRUCTION ON PROPER DIABETIC SKIN/FOOT CARE. [code = SKILLED NURSE FOR O/A OF LOWER EXTREMITIES TO IDENTIFY CHANGES OR LESIONS ASSOCIATED WITH DIABETES MELLITUS FOR EARLY INTERVENTIONS OF COMPLICATIONS. SKILLED NURSE TO PROVIDE INSTRUCTION ON PROPER DIABETIC SKIN/FOOT CARE.] Future Scheduled Test SKILLED NU RSE TO PERFORM HOME SAFETY AND FALL ASSESSMENT AND PROVIDE INSTRUCTION TO IMPLEMENT HOME SAFETY AND FALL PREVENTION STRATEGIES. [code = SKILLED NURSE TO PERFORM HOME SAFETY AND FALL ASSESSMENT AND PROVIDE INSTRUCTION TO IMPLEMENT HOME SAFETY AND FALL PREVENTION STRATEGIES.] Future Scheduled Test SKILLED NU RSE TO PROVIDE ASSESSMENT AND TEACHING/REINFORCEMENT OF MANAGEMENT OF DEPRESSION INCLUDING DISEASE PROCESS, MEDICATION MANAGEMENT, COPING SKILLS AND IDENTIFY CHANGES ASSOCIATED WITH DEPRESSIVE DISORDERS FOR EARLY INTERVENTION. [code = SKILLED NURSE TO PROVIDE ASSESSMENT AND TEACHING/REINFORCEMENT OF MANAGEMENT OF DEPRESSION INCLUDING DISEASE PROCESS, MEDICATION MANAGEMENT, COPING SKILLS AND IDENTIFY CHANGES ASSOCIATED WITH DEPRESSIVE DISORDERS FOR EARLY INTERVENTION.] Future Scheduled Test PATIENT ALLEN S A RISK OF HOSPITALIZATION AND ED USE. SKILLED NURSE TO ESTABLISH SUPPORT MEASURES TO MINIMIZE RISK OF HOSPITALIZATION AND ED USE, AND INSTRUCT PATIENT/CAREGIVER ON METHODS TO REDUCE AVOIDABLE HOSPITALIZATION AND ED USE. [code = PATIENT HAS A RISK OF HOSPITALIZATION AND ED USE. SKILLED NURSE TO ESTABLISH SUPPORT MEASURES TO MINIMIZE RISK OF HOSPITALIZATION AND ED USE, AND INSTRUCT PATIENT/CAREGIVER ON METHODS TO REDUCE AVOIDABLE HOSPITALIZATION AND ED USE.] Future Scheduled Test SKILLED NU RSE TO PROVIDE INSTRUCTION TO PATIENT/CAREGIVER RELATED TO DISCHARGE PLANNING. [code = SKILLED NURSE TO PROVIDE INSTRUCTION TO PATIENT/CAREGIVER RELATED TO DISCHARGE PLANNING.] Future Scheduled Test SKILLED NU RSE FOR OBSERVATION AND ASSESSMENT OF PATIENTS PAIN LEVEL AND EFFECTIVENESS OF PAIN MANAGEMENT REGIMEN. SKILLED NURSE TO INSTRUCT PATIENT/CAREGIVER REGARDING PHARMACOLOGIC AND NON-PHARMACOLOGIC PAIN CONTROL MEASURES. SKILLED NURSE TO REPORT TO PHYSICIAN IF PAIN IS UNCONTROLLED WITH CURRENT PAIN MANAGEMENT REGIMEN. [code = SKILLED NURSE FOR OBSERVATION AND ASSESSMENT OF PATIENTS PAIN LEVEL AND EFFECTIVENESS OF PAIN MANAGEMENT REGIMEN. SKILLED NURSE TO INSTRUCT PATIENT/CAREGIVER REGARDING PHARMACOLOGIC AND NON-PHARMACOLOGIC PAIN CONTROL MEASURES. SKILLED NURSE TO REPORT TO PHYSICIAN IF PAIN IS UNCONTROLLED WITH CURRENT PAIN MANAGEMENT REGIMEN.] Future Scheduled Test SKILLED NU RSE FOR O/A, TEACHING RELATED TO GERD FOR EARLY IDENTIFICATION OF EXACERBATION OF DISEASE PROCESS. [code = SKILLED NURSE FOR O/A, TEACHING RELATED TO GERD FOR EARLY IDENTIFICATION OF EXACERBATION OF DISEASE PROCESS.] Future Scheduled Test SKILLED NU RSE FOR O/A OF RESPIRATORY SYSTEM TO IDENTIFY CHANGES ASSOCIATED WITH EXACERBATION AND TO PROVIDE SKILLED TEACHING ON MANAGEMENT OF ASTHMA PULMONARY ARTERIAL HTN, CASSANDRA DISEASE PROCESS. [code = SKILLED NURSE FOR O/A OF RESPIRATORY SYSTEM TO IDENTIFY CHANGES ASSOCIATED WITH EXACERBATION AND TO PROVIDE SKILLED TEACHING ON MANAGEMENT OF ASTHMA PULMONARY ARTERIAL HTN, CASSANDRA DISEASE PROCESS.] Future Scheduled Test NEED FOR S KILLED TEACHING AND INTERVENTION RELATED TO RLE REDNESS RASH TO THIGHS. SKIN CARE WILL BE PERFORMED BY TRAINED CAREGIVER ON DAYS WHEN SKILLED NURSE IS NOT SCHEDULED FOR A VISIT. DISCONTINUE WOUND CARE/SUPPLIES ONCE WOUND IS HEALED. [code = NEED FOR SKILLED TEACHING AND INTERVENTION RELATED TO RLE REDNESS RASH TO THIGHS. SKIN CARE WILL BE PERFORMED BY TRAINED CAREGIVER ON DAYS WHEN SKILLED NURSE IS NOT SCHEDULED FOR A VISIT. DISCONTINUE WOUND CARE/SUPPLIES ONCE WOUND IS HEALED.] Future Scheduled Test SKILLED NU RSE FOR O/A AND SKILLED TEACHING IN MANAGEMENT OF PERIPHERAL VENOUS INSUFFECIENCY CIRCULATORY/VASCULAR DISEASE. [code = SKILLED NURSE FOR O/A AND SKILLED TEACHING IN MANAGEMENT OF PERIPHERAL VENOUS INSUFFECIENCY CIRCULATORY/VASCULAR DISEASE.] Future Scheduled Test SKILLED NU RSE TO ASSESS PATIENT'S SKIN INTEGRITY AND INSTRUCT PATIENT/CAREGIVER ON MEASURES TO PREVENT PRESSURE ULCERS [code = SKILLED NURSE TO ASSESS PATIENT'S SKIN INTEGRITY AND INSTRUCT PATIENT/CAREGIVER ON MEASURES TO PREVENT PRESSURE ULCERS] Future Scheduled Test INSTRUCTED PATIENT/CAREGIVER ON SIGNS AND SYMPTOMS, RISK FACTORS, COMPLICATIONS, AND MANAGEMENT OF ATRIAL FIBRILLATION. [code = INSTRUCTED PATIENT/CAREGIVER ON SIGNS AND SYMPTOMS, RISK FACTORS, COMPLICATIONS, AND MANAGEMENT OF ATRIAL FIBRILLATION.] Future Scheduled Test SKILLED NU RSE FOR O/A, TEACHING AND SELF-MANAGEMENT RELATED TO HEART FAILURE. INSTRUCT PATIENT/CAREGIVER ON SIGNS AND SYMPTOMS OF EXACERBATION TO REPORT. WEIGH DAILY REPORT WT GAIN 2-3LBTO MD [code = SKILLED NURSE FOR O/A, TEACHING AND SELF-MANAGEMENT RELATED TO HEART FAILURE. INSTRUCT PATIENT/CAREGIVER ON SIGNS AND SYMPTOMS OF EXACERBATION TO REPORT. WEIGH DAILY REPORT WT GAIN 2-3LBTO MD] Future Scheduled Test SKILLED NU RSE FOR O/A AND SKILLED TEACHING RELATED TO SIGNS AND SYMPTOMS AND MANAGEMENT OF ANEMIA. [code = SKILLED NURSE FOR O/A AND SKILLED TEACHING RELATED TO SIGNS AND SYMPTOMS AND MANAGEMENT OF ANEMIA.] Future Scheduled Test SKILLED NU RSE FOR O/A AND TEACHING BLOOD SUGAR MONITORING/USE OF GLUCOMETER, DIABETIC DIET, LOWER EXTREMITY SKIN INSPECTION, PROPER SKIN/FOOT CARE, AND SIGNS AND SYMPTOMS HYPO/HYPERGLYCEMIA TO REPORT AND METHODS TO MANAGE. [code = SKILLED NURSE FOR O/A AND TEACHING BLOOD SUGAR MONITORING/USE OF GLUCOMETER, DIABETIC DIET, LOWER EXTREMITY SKIN INSPECTION, PROPER SKIN/FOOT CARE, AND SIGNS AND SYMPTOMS HYPO/HYPERGLYCEMIA TO REPORT AND METHODS TO MANAGE.] Goal 2022-07-18 Patient Goal - T O STAY OUT OF THE HOSPITAL Goal 2022-09-16 Patient Goal - T O STAY OUT OF THE HOSPITAL AND FEEL BETTER Goal 2022-11-18 Patient Goal - T O STAY OUT OF THE HOSPITAL AND FEEL BETTER Goal Provider Goal - A PLAN OF CARE WILL BE ESTABLISHED THAT MEETS PATIENT'S SHELTER NEEDS AND INCLUDES PATIENT GOAL FOR HOME HEALTH. Goal Provider Goal - CHANGES IN LOWER EXTREMITIES WILL BE IDENTIFIED AND REPORTED TO MD FOR PROMPT INTERVENTION TO PREVENT ASSOCIATED RISKS THROUGHOUT THE CERTIFICATION PERIOD. PATIENT/CAREGIVER WILL VERBALIZE UNDERSTANDING OF PROPER DIABETIC SKIN/FOOT CARE BY THE END OF THE CERTIFICATION PERIOD. Goal Provider Goal - PATIENT/CAREGIVER WILL VERBALIZE/DEMONSTRATE EFFECTIVE HOME SAFETY AND FALL PREVENTION STRATEGIES THROUGHOUT CERTIFICATION PERIOD. Goal Provider Goal - PATIENT/CAREGIVER WILL VERBALIZE/DEMONSTRATE UNDERSTANDING OF THE MANAGEMENT OF DEPRESSION BY THE END OF THE EPISODE AND SYMPTOMS ARE IDENTIFIED AND MANAGED TO MAINTAIN PATIENT SAFETY IN THE HOME Goal Provider Goal - PATIENT WILL HAVE SUPPORT MEASURES ESTABLISHED TO PREVENT HOSPITALIZATION AND ED USE AND PATIENT/CAREGIVER WILL VERBALIZE/DEMONSTRATE METHODS TO REDUCE AVOIDABLE HOSPITALIZATION AND ED USE BY END OF EPISODE. Goal Provider Goal - PATIENT/CAREGIVER WILL VERBALIZE UNDERSTANDING OF DISCHARGE PLANNING INSTRUCTIONS BY DATE OF DISCHARGE. Goal Provider Goal - PATIENT/CAREGIVER WILL DEMONSTRATE UNDERSTANDING OF PHARMACOLOGIC AND NONPHARMACOLOGIC PAIN CONTROL MEASURES AND PATIENT WILL HAVE IMPROVEMENT IN PAIN INTERFERING WITH ACTIVITY EVIDENCED BY PAIN CONTROLLED AT LEVEL OF 7 OR LESS BY END OF CERTIFICATION PERIOD. Goal Provider Goal - EXACERBATIONS OF GERD GASTROINTESTINAL DISEASE WILL BE PROMPTLY IDENTIFIED AND INTERVENTIONS IMPLEMENTED TO MINIMIZE RISKS TO PATIENT BY END OF EPISODE. Goal Provider Goal - PATIENT/CAREGIVER WILL VERBALIZE/DEMONSTRATE MANAGEMENT OF RESPIRATORY DISEASE PROCESS. CHANGES IN RESPIRATORY STATUS WILL BE IDENTIFIED AND REPORTED TO PHYSICIAN FOR PROMPT INTERVENTION THROUGHOUT THE CERTIFICATION PERIOD. Goal Provider Goal - WOUND CARE WILL BE COMPLETED AND PATIENT WILL HAVE IMPROVED WOUND STATUS EVIDENCED BY NO SIGNS AND SYMPTOMS OF INFECTION, DECREASED WOUND SIZE, AND/OR NO COMPLICATIONS BY THE END OF THE CERTIFICATION PERIOD. Goal Provider Goal - PATIENT/CAREGIVER WILL VERBALIZE/DEMONSTRATE THE ABILITY TO MANAGE CIRCULATORY DISEASE PROCESS AND EXACERBATIONS WILL BE IDENTIFIED FOR EARLY INTERVENTION THROUGHOUT THE CERTIFICATION PERIOD. Goal Provider Goal - PATIENT/CAREGIVER WILL VERBALIZE UNDERSTANDING OF PRESSURE ULCER PREVENTION BY END OF THE EPISODE. Goal Provider Goal - PATIENT/CAREGIVER WILL VERBALIZE UNDERSTANDING OF SIGNS AND SYMPTOMS, COMPLICATIONS, AND MANAGEMENT OF ATRIAL FIBRILLATION THROUGHOUT THE CERTIFICATION PERIOD. Goal Provider Goal - PATIENT/CAREGIVER WILL VERBALIZE/DEMONSTRATE KNOWLEDGE AND MANAGEMENT OF HEART FAILURE DISEASE PROCESS BY END OF EPISODE. Goal Provider Goal - PATIENT/CARGIVER WILL VERBALIZE UNDERSTANDING OF ANEMIA INCLUDING SIGNS AND SYMPTOMS, MANAGEMENT OF COMPLICATIONS, AND PRESCRIBED TREATMENT REGIMEN BY END OF EPISODE. Goal Provider Goal - PATIENT/CAREGIVER WILL VERBALIZE/DEMONSTRATE KNOWLEDGE OF DIABETIC MANAGEMENT. CHANGES IN DIABETIC STATUS WILL BE IDENTIFIED AND REPORTED TO PHYSICIAN FOR PROMPT INTERVENTION THROUGHOUT THE CERTIFICATION PERIOD. Reason for Visit INDEPENDENT WITH USE OF ASSISTIVE DEVICE Encounters Start Date/Time End Date/Time Encounter Type Admission Type Attending [facility] Care Department Encounter ID Discharge Date Discharge Status Discharge Condition Discharge Reason Percent Goals Met 2022-05-24 00:00:00 2022-11-18 00:00:00 Outpatient RECERTIFIC RHONDA SNIDER [facility] [id number] 5905-07-03 00:00:00 DISCHARGE TO HOME OR SELF CARE INDEPENDEN T WITH USE OF ASSISTIVE DEVICE GOALS MET ( ONLY) 100.00
[2024-06-07 20:00] VITALS: BP 107/68; PULSE 126; RESP 25; TEMP 36.4; O2SAT 97
--- NOTE | 2024-06-07 20:17 | PHA.MEDREC ---
Addendum entered by Yoon Chamberlain RPh 06/07/24 20:44: Reviewed by pharmacist Original Note: Pharmacy Consult ? Medication Reconciliation Pharmacy has completed the medication reconciliation. Utilized list from [facility] to confirm med list.
[2024-06-07 20:22] LABS: Troponin-I High Sensitivity 41.9 ng/L (<3.5-35.0)
[2024-06-07 20:24] LABS: ~Lactic Acid-LAB USE ONLY 8.6 mmol/L (0.5-2.0)
[2024-06-07 20:33] LABS: Appearance Urine Clear; Color Urine Yellow; Glucose Urine UA 100 mg/dL (Negative); Leukocyte Esterase Urine Moderate (2+) (Negative); Nitrite Urine Negative (Negative); UMIC TRIGGER UACC YES; Urine Blood Large (3+) (Negative); Urine Ketones Negative (Negative); Urine Protein 100 (2+) mg/dL (Neg-Trace)
[2024-06-07 20:34] LABS: Bacteria Urine 4+ (None Seen); Hyaline Casts Urine 0-2 /LPF (0-2); Squamous Epithelial Cell Urine 0-2 /HPF (0-2); UACC Culture Trigger YES
[2024-06-07 21:09] VITALS: BP 118/84; PULSE 145
--- NOTE | 2024-06-07 21:24 | PC.NURSE ---
pt noted to be tachycardic 140-145bpm at this time, repeat ekg obtained, provider aware, no new orders at this time.
[2024-06-07 21:25] VITALS: BP 117/81
[2024-06-07] MEDS: Furosemide 100 MG/10 ML VIAL 60 MG IVPUSH (21:25)
[2024-06-07 21:55] LABS: Reflex Lactate? 2 Y
[2024-06-07 22:25] LABS: ABG Base Excess -11.1 mmol/L; ABG HCO3 12 mmol/L (22-26); ABG pCO2 21 mmHg (32-45); ABG pH 7.35 (7.35-7.45); ABG pO2 91 mmHg (83-108)
--- NOTE | 2024-06-07 22:25 | PC.NURSE ---
16F honeycutt placed per provider order at this time, pt tolerated well, pt voided 300ML.
[2024-06-07 23:53] LABS: VBG Base Excess -6.5 mmol/L; VBG HCO3 18 mmol/L (22-26); VBG pCO2 35 mmHg; VBG pH 7.32 (7.32-7.43); VBG pO2 29 mmHg
[2024-06-07 23:56] LABS: Venous Blood Gas Refer to POC result
[2024-06-08] VITALS (17 sets, daily range): BP systolic 109–139; BP diastolic 67–117; PULSE 64–163; RESP 14–25; TEMP 36.4; O2SAT 90–93
[2024-06-08 00:06] LABS: ~Lactic Acid-LAB USE ONLY 8.2 mmol/L (0.5-2.0)
--- NOTE | 2024-06-08 00:14 | PC.NURSE ---
pt noted to have removed both IV access at this time. new IV established, 20G right wrist and 20G right shoulder, wrist access wrapped for safety.
--- NOTE | 2024-06-08 01:29 | PC.NURSE ---
pt placed on hospital bed at this time for comfort.
[2024-06-08 04:00] LABS: ~Lactic Acid-LAB USE ONLY 7.2 mmol/L (0.5-2.0)
[2024-06-08] MEDS: Metoprolol Tartrate 5 MG/5 ML VIAL 2.5 MG IVPUSH (04:26)
--- NOTE | 2024-06-08 04:34 | PC.NURSE ---
pt noted to rapid afib rvr 150-155bpm, provider notified, pt medicated per jul.
--- NOTE | 2024-06-08 05:30 | PM.IMHP ---
History of Present Illness Date of Service: 06/08/24 Attending physician on admission: Jigna Choi Chief Complaint: SOB, AMS Pt is a 78 yo male with a pmhx significant fordiabetes mellitus, malnutrition, hypertension, hyperlipidemia, pulmonary hypertension, chronic kidney disease stage 3, paroxysmal atrial fibrillation, COPD, muscle wasting with atrophy, depression, systolic congestive heart failure, DNR/DNI sent in by ambulance from his senior care facility [facility] for evaluation increased confusion over 2 days and shortness of breath. He reports SOB and LE edema for quite a while now. + cough with green sputum. no fever, chills, nausea, or vomiting. Also having urinary sx including dysuira, freuqency and urgency. denies and pain, melena, or hemtochezia. He is a difficult historian and unable to determine accuracy of his responses. Review of Systems Constitutional: Constitutional: Denies body ache(s), Denies chills, Denies fatigue, Denies fever(s) and Denies headache(s) Eyes: Eyes: Denies change in vision ENT: Denies headache(s), Denies nasal congestion, Denies nasal discharge and Denies sore throat Cardiovascular: Cardiovascular: Denies chest pain, Denies rapid heart rate, Reports leg edema, Denies lightheadedness and Reports dyspnea Respiratory: Respiratory: Reports chest congestion, Reports cough, Reports dyspnea and Denies wheezing Gastrointestinal: Gastrointestinal: Denies constipation, Denies diarrhea, Denies nausea and Denies vomiting Genitourinary: Genitourinary: Reports dysuria, Reports urinary frequency and Reports urinary urgency Musculoskeletal: Musculoskeletal: Denies myalgias Integumentary/Breasts: Skin/Breast: Denies rash Neurologic: Reports as per HPI and Denies headache(s) Psychiatric: Psychiatric: Reports as per HPI Endocrine: Endocrine: Denies fatigue Hematologic/Lymphatic: Hematologic/Lymphatic: Denies easy bleeding and Denies easy bruising Allergic/Immunologic: Allergic/Immunologic: Denies wheezing PMFSH Social History Smoked in Last 30 Days: No Use of substances other than those prescribed or required for medical reasons: No Advance Directives: No Advance Directives Information Provided: Yes Meds Allergies Allergy/AdvReac Type Severity Reaction Status Date / Time lisinopril Allergy Unknown Verified 06/07/24 14:28 Active Medications: Current Medications Acetaminophen (Acetaminophen 325 Mg Tablet) 650 mg PO Q6H PRN PRN Reason: Pain, Mild 1-3,fever,headache Calcium Carbonate (Calcium Carbonate 750 Mg Tab.Chew) 750 mg PO Q4H PRN PRN Reason: Heartburn Ceftriaxone Sodium (Ceftriaxone Sodium 1 Gm Vial) 1 gm IVPUSH ONCE ONE Stop: 06/08/24 18:01 Furosemide (Furosemide 100 Mg/10 Ml Vial) 60 mg IVPUSH DAILY [facility], [facility]; Protocol Vancomycin HCl 1,500 mg/ (Sodium Chloride) 500 mls @ 333.333 mls/hr IV ONCE ONE Stop: 06/08/24 06:48 Magnesium Hydroxide (Milk Of Magnesia 30 Ml Oral.Susp) 30 ml PO DAILY PRN PRN Reason: Constipation Melatonin (Melatonin 3 Mg Tablet) 6 mg PO BEDTIME PRN PRN Reason: Insomnia Ondansetron HCl (Ondansetron Hcl 4 Mg/2 Ml Vial) 4 mg IVPUSH Q8H PRN PRN Reason: Nausea and Vomiting Pharmacy Consult (Consult Rx Vancomycin Dosing) 1 each MISCELLANE DAILY PRN PRN Reason: Consult order Sodium Chloride (0.9 % Sodium Chloride Flush 3 Ml Syringe) [facility] Medications ?Medication ?Instructions ?Recorded ?Confirmed ?Last Taken ?Type acetaminophen 325 mg tablet 975 mg PO Q8H PRN Fever Or Pain 06/07/24 06/07/24 Unknown History apixaban 5 mg tablet (Eliquis) 5 mg PO BID 06/07/24 06/07/24 Unknown History atorvastatin 20 mg tablet 20 mg PO BEDTIME 06/07/24 06/07/24 Unknown History bisacodyl 10 mg rectal suppository 10 mg CO DAILY PRN Constipation 06/07/24 06/07/24 Unknown History (Dulcolax (bisacodyl)) dapagliflozin propanediol 5 mg 5 mg PO DAILY 06/07/24 06/07/24 Unknown History tablet (Farxiga) duloxetine 60 mg capsule,delayed 60 mg PO DAILY 06/07/24 06/07/24 Unknown History release sprinkle finasteride 5 mg tablet 5 mg PO DAILY 06/07/24 06/07/24 Unknown History furosemide 40 mg tablet 40 mg PO BID 06/07/24 06/07/24 Unknown History gabapentin 100 mg capsule 100 mg PO Q8H 06/07/24 06/07/24 Unknown History guaifenesin 100 mg/5 mL oral liquid 100 mg PO Q6H PRN Cough 06/07/24 06/07/24 Unknown History ipratropium 0.5 mg-albuterol 3 mg 3 ml inhalation Q6H 06/07/24 06/07/24 Unknown History (2.5 mg base)/3 mL nebulization soln lidocaine 4 % topical patch 1 patch topical DAILY 06/07/24 06/07/24 Unknown History magnesium hydroxide 400 mg/5 mL 30 ml PO BEDTIME PRN Constipation 06/07/24 06/07/24 Unknown History oral suspension (Milk of Magnesia) melatonin 5 mg tablet 5 mg PO BEDTIME 06/07/24 06/07/24 Unknown History metformin 500 mg tablet,extended 500 mg PO BID 06/07/24 06/07/24 Unknown History release 24 hr metoprolol tartrate 50 mg tablet 50 mg PO BID 06/07/24 06/07/24 Unknown History oxycodone 5 mg tablet 5 mg PO Q8H PRN Pain 06/07/24 06/07/24 Unknown History pantoprazole 40 mg tablet,delayed 40 mg PO DAILY 06/07/24 06/07/24 Unknown History release potassium chloride 20 mEq 20 meq PO DAILY 06/07/24 06/07/24 Unknown History tablet,extended release ropinirole 0.25 mg tablet 0.25 mg PO BEDTIME 06/07/24 06/07/24 Unknown History sodium phosphates 19 gram-7 118 ml CO DAILY PRN Constipation 06/07/24 06/07/24 Unknown History gram/118 mL enema (Fleet Enema) tamsulosin 0.4 mg capsule 0.8 mg PO BEDTIME 06/07/24 06/07/24 Unknown History triamcinolone acetonide 40 mg/mL 40 mg IM DAILY 06/07/24 06/07/24 Unknown History suspension for injection Physical Exam Vital Signs and Narrative: Vital Signs: Last Vital Signs Temp 97.5 F 06/08/24 04:12 Pulse 128 H 06/08/24 04:33 Resp 25 H 06/08/24 04:12 BP 139/88 06/08/24 04:33 Pulse Ox 93 06/08/24 04:12 O2 Del Method Room Air 06/08/24 04:12 BMI result Body Mass Index 24.0 General: Alert, oriented to person and place, not date or year, no acute distress Resp: CTA bilaterally, diminished throughout CVS: irregularly irregular, tachy GI: +BS, NT, no distention Skin: Warm, dry Neuro: Cranial nerves II-XII grossly intact bilaterally. Motor grossly intact bilaterally Extremities: No LE edema Psych: Appropriate affect Results Labs 06/07/24 17:26 06/07/24 17:26 Labs: Laboratory Results - last 24 hr 06/07/24 06/07/24 06/07/24 16:16 16:17 17:26 MCV 77.9 L MCH 24.3 L MCHC 31.3 RDW 22.0 H Plt Count 134 L MPV 10.8 Immature Gran % (Auto) 0.9 H Neut % (Auto) 90.7 H Lymph % (Auto) 4.1 L [place] % (Auto) 3.4 Eos % (Auto) 0.7 Baso % (Auto) 0.2 Lymph # (Auto) 0.7 L [place] # (Auto) 0.6 Eos # (Auto) 0.1 Baso # (Auto) 0.0 Abs Immat Gran (auto) 0.15 H Absolute Neuts (auto) 15.7 H Absolute Nucleated RBC 0.030 H Nucleated RBC % (auto) 0.2 Smear Tech's Comments VERIFIED APTT 34.9 O2 Saturation ABG pH at Pt Temp ABG pCO2 at Pt Temp ABG pO2 at Pt Temp ABG HCO3 ABG Base Excess (Actual) VBG pH VBG pCO2 VBG pO2 VBG HCO3 VBG O2 Saturation VBG Base Excess Anion Gap 24 H Estim Creat Clear Calc 33.7 Estimated GFR 34 Random Glucose 196 H Lactic Acid 5.4 H* Lactic Acid F/U @ 2Hr Lactic Acid F/U @ 4Hr Calcium 8.7 Total Bilirubin 1.7 H AST 22 ALT < 6 Alkaline Phosphatase 97 Total Creatine Kinase 60 Troponin I High Sens 48.1 H B-Natriuretic Peptide 4751 H Total Protein 7.5 Albumin 3.7 Lipase 4 L Urine Color Urine Appearance Urine pH Ur Specific [place] Urine Protein Urine Glucose (UA) Urine Ketones Urine Blood Urine Nitrite Ur Leukocyte Esterase Urine RBC Urine WBC Ur Squamous Epith Cells Urine Bacteria Hyaline Casts Influenza Type A (PCR) NEGATIVE Influenza Type B (PCR) NEGATIVE RSV RNA Qual (PCR) NEGATIVE SARS-CoV-2 RNA (RT-PCR) NEGATIVE 06/07/24 06/07/24 06/07/24 17:32 19:51 20:06 MCV MCH MCHC RDW Plt Count MPV Immature Gran % (Auto) Neut % (Auto) Lymph % (Auto) [place] % (Auto) Eos % (Auto) Baso % (Auto) Lymph # (Auto) [place] # (Auto) Eos # (Auto) Baso # (Auto) Abs Immat Gran (auto) Absolute Neuts (auto) Absolute Nucleated RBC Nucleated RBC % (auto) Smear Tech's Comments APTT O2 Saturation ABG pH at Pt Temp ABG pCO2 at Pt Temp ABG pO2 at Pt Temp ABG HCO3 ABG Base Excess (Actual) VBG pH 7.40 VBG pCO2 31 VBG pO2 29 VBG HCO3 20 L VBG O2 Saturation 38.0 VBG Base Excess -3.6 Anion Gap Estim Creat Clear Calc Estimated GFR Random Glucose Lactic Acid Lactic Acid F/U @ 2Hr 8.6 H* Lactic Acid F/U @ 4Hr Calcium Total Bilirubin AST ALT Alkaline Phosphatase Total Creatine Kinase Troponin I High Sens 41.9 H B-Natriuretic Peptide Total Protein Albumin Lipase Urine Color Yellow Urine Appearance Clear Urine pH 6.0 Ur Specific [place] 1.020 Urine Protein 100 (2+) H Urine Glucose (UA) 100 H Urine Ketones Negative Urine Blood Large (3+) H Urine Nitrite Negative Ur Leukocyte Esterase Moderate (2+) H Urine RBC 3-5 H Urine WBC 6-10 Ur Squamous Epith Cells 0-2 Urine Bacteria 4+ Hyaline Casts 0-2 Influenza Type A (PCR) Influenza Type B (PCR) RSV RNA Qual (PCR) SARS-CoV-2 RNA (RT-PCR) 06/07/24 06/07/24 06/07/24 22:14 23:42 23:46 MCV MCH MCHC RDW Plt Count MPV Immature Gran % (Auto) Neut % (Auto) Lymph % (Auto) [place] % (Auto) Eos % (Auto) Baso % (Auto) Lymph # (Auto) [place] # (Auto) Eos # (Auto) Baso # (Auto) Abs Immat Gran (auto) Absolute Neuts (auto) Absolute Nucleated RBC Nucleated RBC % (auto) Smear Tech's Comments APTT O2 Saturation 97.0 ABG pH at Pt Temp 7.35 ABG pCO2 at Pt Temp 21 L ABG pO2 at Pt Temp 91 ABG HCO3 12 L ABG Base Excess (Actual) -11.1 VBG pH 7.32 VBG pCO2 35 VBG pO2 29 VBG HCO3 18 L VBG O2 Saturation 33.0 VBG Base Excess -6.5 Anion Gap Estim Creat Clear Calc Estimated GFR Random Glucose Lactic Acid Lactic Acid F/U @ 2Hr Lactic Acid F/U @ 4Hr 8.2 H* Calcium Total Bilirubin AST ALT Alkaline Phosphatase Total Creatine Kinase Troponin I High Sens B-Natriuretic Peptide Total Protein Albumin Lipase Urine Color Urine Appearance Urine pH Ur Specific [place] Urine Protein Urine Glucose (UA) Urine Ketones Urine Blood Urine Nitrite Ur Leukocyte Esterase Urine RBC Urine WBC Ur Squamous Epith Cells Urine Bacteria Hyaline Casts Influenza Type A (PCR) Influenza Type B (PCR) RSV RNA Qual (PCR) SARS-CoV-2 RNA (RT-PCR) 06/08/24 03:35 MCV MCH MCHC RDW Plt Count MPV Immature Gran % (Auto) Neut % (Auto) Lymph % (Auto) [place] % (Auto) Eos % (Auto) Baso % (Auto) Lymph # (Auto) [place] # (Auto) Eos # (Auto) Baso # (Auto) Abs Immat Gran (auto) Absolute Neuts (auto) Absolute Nucleated RBC Nucleated RBC % (auto) Smear Tech's Comments APTT O2 Saturation ABG pH at Pt Temp ABG pCO2 at Pt Temp ABG pO2 at Pt Temp ABG HCO3 ABG Base Excess (Actual) VBG pH VBG pCO2 VBG pO2 VBG HCO3 VBG O2 Saturation VBG Base Excess Anion Gap Estim Creat Clear Calc Estimated GFR Random Glucose Lactic Acid Lactic Acid F/U @ 2Hr 7.2 H* Lactic Acid F/U @ 4Hr Calcium Total Bilirubin AST ALT Alkaline Phosphatase Total Creatine Kinase Troponin I High Sens B-Natriuretic Peptide Total Protein Albumin Lipase Urine Color Urine Appearance Urine pH Ur Specific [place] Urine Protein Urine Glucose (UA) Urine Ketones Urine Blood Urine Nitrite Ur Leukocyte Esterase Urine RBC Urine WBC Ur Squamous Epith Cells Urine Bacteria Hyaline Casts Influenza Type A (PCR) Influenza Type B (PCR) RSV RNA Qual (PCR) SARS-CoV-2 RNA (RT-PCR) Imaging Radiologist's Impressions: Impressions Chest X-Ray 06/07/24 14:42 IMPRESSION: Partial opacification of the left lung base, which may represent atelectasis, pneumonia, or pleural fluid. Electronically signed by: Steven Robins MD 06/07/2024 03:20 PM EST RP Head CT 06/07/24 14:51 IMPRESSION: No acute intracranial abnormality. Electronically signed by: Steven Robins MD 06/07/2024 03:13 PM EST RP Assessment and Plan (1) Sepsis: Status: Acute (2) Urinary tract infection: Status: Acute (3) Acute kidney injury superimposed on chronic kidney disease: Status: Acute (4) Acute exacerbation of CHF (congestive heart failure): Status: Acute (5) Atrial fibrillation with RVR: Status: Acute (6) Bacteremia: Status: Acute (7) Lactic acidosis: Status: Acute (8) Anemia: Status: Acute Plan Pt is a 78 yo male with a pmhx significant fordiabetes mellitus, malnutrition, hypertension, hyperlipidemia, pulmonary hypertension, chronic kidney disease stage 3, paroxysmal atrial fibrillation, COPD, muscle wasting with atrophy, depression, systolic congestive heart failure, DNR/DNI sent in by ambulance from his senior care [facility] for evaluation increased confusion over 2 days and shortness of breath. workup suggestive of sepsis secondary to UTI and bacteremia, complicated by CHF exacerbation and a fib with RVR. metabolic encephalopathy and severe sepsis secondary to UTI and bacteremia - WBC 17.3, lactic 5.4, 7.2 to 8.2 on repeat, blood cultures pending 1/ with gram positive cocci in chains - UA +, culture pending - started on ceftrixone and azithromycin in ED, continue ceftriaxone, add vancomycin - IVF: NS 1L, no fluid bolus given due to CHF exacerbation - monitor CBC and BMP acute CHF exacerbation - BNP 4751 - CXR with moderate cardiomegaly with small bilateral pleural effusions and interstitial prominence in both lungs - IV lasix 60mg QD a fib with RVR - EKG with a fib with RVR - trops48.1, 41.9 on repeat, no ST elevations - given IV metoprolol 2.5mg and repeat dose of 5mg IV - continue eliquis - monitor on tele, beta blockers as needed for rate control BLUE on CKD - secondary to sepsis and metformin - hold metformin and farxiga - IVF as above, 1L, no additional due to CHF exacerbation - monitor BMP lactic acidemia - 5.4 to 7.2 to 8.2 - secondary to sepsis,hypoperfusion from CHF and metformin - sepsis fluid bolus not given due to CHF exacerbation COPD unspecified - no acute exacerbation - continue home meds T2DM - hold metformin and farxiga - sliding scale insulin muscle wasting disease - continue triamcinolone DNR/DNI VTE prophy: julio Pt with metabolic encephalopathy and severe sepsis secondary to UTI and bacteremia complicated by concurrent acute CHF exacerbation, requiring admission for at least 2 midnights stay. Quality Stroke Does the patient have a stroke diagnosis?: No VTE Prior VTE?: No VTE Risk Level:: Medical - moderate - high VTE Device Contraindication: Treatment Not Indicated VTE Drug Contraindication: N/A - Med Ordered
[2024-06-08 05:38] LABS: Reflex Lactate? 2 Y
[2024-06-08] MEDS: vancomycin/NS 2,000 MG/500 ML PLAST..BAG 250 MG IV (05:53)
[2024-06-08] MEDS: Metoprolol Tartrate 5 MG/5 ML VIAL IVPUSH ×2 (05:53→08:38)
[2024-06-08] MEDS: cefTRIAXone sodium 1 GM VIAL IVPUSH (06:05)
[2024-06-08 06:08] LABS: Venous Blood Gas Refer to POC result
[2024-06-08 06:09] LABS: MANUAL DIFF FLAG NO
[2024-06-08 06:12] LABS: Glucose, Whole Blood 186 mg/dL (60-115)
--- NOTE | 2024-06-08 06:13 | PC.NURSE ---
this rn completed bedside swallow eval, pt swallowed without difficulty, but pt noted to be short of breath after sips. aware, orders placed for speech eval, holding PO medications at this time.
[2024-06-08 06:15] LABS: VBG Base Excess -3.5 mmol/L; VBG HCO3 18 mmol/L (22-26); VBG pCO2 26 mmHg; VBG pH 7.46 (7.32-7.43); VBG pO2 36 mmHg
[2024-06-08 06:32] LABS: Alanine Aminotransferase 6 U/L (0-40); Albumin Level 3.5 g/dL (3.5-5.0); Alkaline Phosphatase 87 U/L (39-117); Anion Gap 23 (12-20); Aspartate Amino Transferase 31 U/L (5-37); Bilirubin Total 1.9 mg/dL (0.0-1.0); Blood Urea Nitrogen 56 mg/dL (9-16); Calcium 8.5 mg/dL (8.4-10.2); Carbon Dioxide 17 mmol/L (22-29); Chloride 99 mmol/L (96-108); Creatinine Clr Calc Pharmacy 26.4; Estimated Glomerular Filt Rate 26; Glucose Random 173 mg/dL (60-115); Potassium 4.8 mmol/L (3.3-5.1); Sodium 134 mmol/L (135-145); Total Protein 7.2 g/dL (6.5-8.0)
[2024-06-08 06:37] LABS: ~Lactic Acid-LAB USE ONLY 5.3 mmol/L (0.5-2.0)
[2024-06-08 06:44] LABS: Basophils Percent Auto 0.1 % (0-2); Imm Gran Pct Auto 0.7 % (0.0-0.4); Lymphocytes Percent Auto 6.5 % (20-40); Mean Corpuscular HGB Conc 31.4 g/dl (31.0-36.0); Mean Corpuscular Hemoglobin 24.2 pg (27.0-33.0); Mean Corpuscular Volume 77.1 fL (80.0-98.0); Monocytes Absolute Auto 1.1 X10*3/uL (0.1-1.2); Monocytes Percent Auto 6.9 % (2-11); Neutrophils Absolute Auto 13.1 x10*3/uL (2.0-8.3); Neutrophils Percent Auto 85.8 % (45-73); Platelet Count 145 X10*3/uL (160-400); Red Blood Count 4.54 X10*6/uL (4.60-5.80); Red Cell Distribution Width 21.7 % (11.0-16.0); White Blood Count 15.3 X10*3/uL (4.8-10.8)
--- NOTE | 2024-06-08 07:06 | PHA.PROG ---
Admission Date/Time: June 08, 2024 05:16 Indication: bacteremia Weight in k.1 kg Adjusted body weight in Kg: [place] body weight in Kg: Obesity Dosing Indication % IBW: Serum Creatinine - Last 168 Hours 06/07/24 06/08/24 17:26 06:04 Creatinine 1.92 H 2.45 H Estimated CrCl and GFR - Last 168 Hours 06/07/24 06/08/24 17:26 06:04 Estim Creat Clear Calc 33.7 26.4 Estimated GFR 34 26 Vancomycin Loading Dose: 2000mg x 1 Current Vancomycin Dosing Regimen: 750mg Q24H Vancomycin Monitoring using AUC goal of 400 - 600 range with trough as surrogate marker: 538 mg/L Date and Time for next Vancomycin Level to be drawn: 06/09 @0800 Pharmacist Comments on Vancomycin Plan: patient's renal function worsening, getting a level after load dose to re-evaluate. Vancomycin dosing will take advantage of [employer] as a clinical decision support tool that uses Bayesian modeling to calculate individual patient's pharmacokinetic parameters and forecast the patient's drug concentration time course with the target goal AUC 24 range of 400 - 600 mg/L/hr.
[2024-06-08 07:23] LABS: Glucose, Whole Blood 167 mg/dL (60-115)
[2024-06-08 07:35] LABS: Glucose, Whole Blood 153 mg/dL (60-115)
--- NOTE | 2024-06-08 07:57 | PC.NURSE ---
pt sleeping but easily arousable, respirations slightly labored, ls diminished, pt's is in a-fib ranging anywhere from 120-to high 150's, honeycutt in place
--- NOTE | 2024-06-08 08:07 | PC.NURSE ---
tigered Dr Owusu about the pt's hr
[2024-06-08] MEDS: Albuterol/Iprat 2.5/0.5MG 3 ML AMPUL.NEB INHALE ×2 (09:39→11:42)
--- NOTE | 2024-06-08 09:57 | PC.NURSE ---
leona texted pharmacy for missing medication
[2024-06-08] MEDS: Furosemide 100 MG/10 ML VIAL 60 MG IVPUSH (09:59)
--- NOTE | 2024-06-08 10:06 | PC.NURSE ---
patient awake/unable to answer questions, rr equal, lungs diminished, security monitor intact pt in afib on monitor 130s-160s, ppt medicated with IVP lasix. Arias cath patient/draining, Dr. Owusu was notified that pt HR was elevated and that we have been unable to obtain an O2 sat despite trying different limbs, ear and forhead. call orosco within reach, plan of care ongoing.
[2024-06-08] MEDS: Triamcinolone Acetonide 40 MG/ML VIAL IM (10:52)
--- NOTE | 2024-06-08 11:04 | HO.PM.IMPN ---
Subjective Subjective Date of Service: 06/08/24 Review of Systems Review of Systems: Yes Unobtainable due to mental condition Physical Exam Vital Signs: Vital Signs: Last Vital Signs Temp 97.5 F 06/08/24 04:12 Pulse 152 H 06/08/24 10:00 Resp 22 H 06/08/24 10:00 BP 121/73 06/08/24 10:00 Pulse Ox 92 06/08/24 09:01 O2 Del Method Room Air 06/08/24 09:01 BMI result Body Mass Index 24.0 Alert, frail, confused, ill-appearing Lungs with crackles Abdomen soft, mildly tender Objective Data Active Medications Acetaminophen (Acetaminophen 325 Mg Tablet) 650 mg PO Q6H PRN PRN Reason: Pain, Mild 1-3,fever,headache Albuterol/Ipratropium (Albuterol/Iprat 2.5/0.5mg 3 Ml Ampul.Neb) 3 ml INHALE RQ4H WHILE AWAKE [facility] Last Admin: 06/08/24 09:39 Dose: 3 ml Documented By: RIYA Apixaban (Apixaban 5 Mg Tablet) 5 mg PO BID [facility] Last Admin: 06/08/24 08:48 Dose: Not Given Documented By: JADA Non-Admin Reason: npo Atorvastatin Calcium (Atorvastatin Calcium 20 Mg Tablet) 20 mg PO BEDTIME IAN Bisacodyl (Bisacodyl 10 Mg Supp.Rect) 10 mg WI DAILY PRN PRN Reason: Constipation Calcium Carbonate (Calcium Carbonate 750 Mg Tab.Chew) 750 mg PO Q4H PRN PRN Reason: Heartburn Ceftriaxone Sodium (Ceftriaxone Sodium 2 Gm Vial) 2 gm IVPUSH Q24H IAN Finasteride (Finasteride 5 Mg Tablet) 5 mg PO DAILY [facility] Last Admin: 06/08/24 08:47 Dose: Not Given Documented By: JADA Non-Admin Reason: npo Furosemide (Furosemide 100 Mg/10 Ml Vial) 60 mg IVPUSH DAILY [facility]; Protocol Last Admin: 06/08/24 09:59 Dose: 60 mg Documented By: JENNIFER Glucose (Glucose Gel 15 Gm Gel..Gram.) 15 gm PO Q15M PRN; Protocol PRN Reason: per Hypoglycemia Standing Ord. Dextrose (D10) 250 mls @ 750 mls/hr IV Q15M PRN; Protocol PRN Reason: per Hypoglycemia Standing Ord. Vancomycin HCl 750 mg/ Sodium (Chloride) 265 mls @ 265 mls/hr IV Q24H [facility] Insulin Human Lispro (Insulin Lispro 100 Unit/Ml 3 Ml Vial) 0 unit SUBCUT QIDACHS [facility]; Protocol Last Admin: 06/08/24 07:32 Dose: Not Given Documented By: JADA Non-Admin Reason: poc 153/npo Magnesium Hydroxide (Milk Of Magnesia 30 Ml Oral.Susp) 30 ml PO DAILY PRN PRN Reason: Constipation Melatonin (Melatonin 3 Mg Tablet) 6 mg PO BEDTIME PRN PRN Reason: Insomnia Metoprolol Tartrate (Metoprolol Tartrate 50 Mg Tablet) 50 mg PO BID [facility]; Protocol Last Admin: 06/08/24 08:47 Dose: Not Given Documented By: JADA Non-Admin Reason: given iv/npo Metoprolol Tartrate (Metoprolol Tartrate 5 Mg/5 Ml Vial) 5 mg IVPUSH Q6H PRN; Protocol PRN Reason: hr> 100 Last Admin: 06/08/24 08:38 Dose: 5 mg Documented By: JADA Ondansetron HCl (Ondansetron Hcl 4 Mg/2 Ml Vial) 4 mg IVPUSH Q8H PRN PRN Reason: Nausea and Vomiting Oxycodone HCl (Oxycodone Hcl Immed Release 5 Mg Tablet) 5 mg PO Q8H PRN PRN Reason: Pain, Severe (Pain Scale 7-10) Pantoprazole Sodium (Pantoprazole Sodium 20 Mg Tablet.Dr) 40 mg PO DAILY [facility] Last Admin: 06/08/24 08:47 Dose: Not Given Documented By: JADA Non-Admin Reason: npo Pharmacy Consult (Consult Rx Vancomycin Dosing) 1 each MISCELLANE DAILY PRN PRN Reason: Consult order Ropinirole HCl (Ropinirole Hcl 0.25 Mg Tablet) 0.25 mg PO BEDTIME [facility] Sodium Chloride (0.9 % Sodium Chloride Flush 3 Ml Syringe) 3 ml IVFLUSH QSHIFT [facility] Last Admin: 06/08/24 08:02 Dose: Not Given Documented By: JADA Non-Admin Reason: IV Running Tamsulosin HCl (Tamsulosin Hcl 0.4 Mg Capsule) 0.8 mg PO BEDTIME [facility] Triamcinolone Acetonide (Triamcinolone Acetonide 40 Mg/Ml Vial) 40 mg IM DAILY IAN Last Admin: 06/08/24 10:52 Dose: 40 mg Documented By: JENNIFER Labs 06/08/24 06:04 06/08/24 06:04 Labs: Laboratory Results - last 24 hr 06/07/24 06/07/24 06/07/24 16:16 16:17 17:26 MCV 77.9 L MCH 24.3 L MCHC 31.3 RDW 22.0 H Plt Count 134 L MPV 10.8 Immature Gran % (Auto) 0.9 H Neut % (Auto) 90.7 H Lymph % (Auto) 4.1 L [place] % (Auto) 3.4 Eos % (Auto) 0.7 Baso % (Auto) 0.2 Lymph # (Auto) 0.7 L [place] # (Auto) 0.6 Eos # (Auto) 0.1 Baso # (Auto) 0.0 Abs Immat Gran (auto) 0.15 H Absolute Neuts (auto) 15.7 H Absolute Nucleated RBC 0.030 H Nucleated RBC % (auto) 0.2 Smear Tech's Comments VERIFIED APTT 34.9 O2 Saturation ABG pH at Pt Temp ABG pCO2 at Pt Temp ABG pO2 at Pt Temp ABG HCO3 ABG Base Excess (Actual) VBG pH VBG pCO2 VBG pO2 VBG HCO3 VBG O2 Saturation VBG Base Excess Anion Gap 24 H Estim Creat Clear Calc 33.7 Estimated GFR 34 POC Glucose Random Glucose 196 H Lactic Acid 5.4 H* Lactic Acid F/U @ 2Hr Lactic Acid F/U @ 4Hr Calcium 8.7 Total Bilirubin 1.7 H AST 22 ALT < 6 Alkaline Phosphatase 97 Total Creatine Kinase 60 Troponin I High Sens 48.1 H B-Natriuretic Peptide 4751 H Total Protein 7.5 Albumin 3.7 Lipase 4 L Urine Color Urine Appearance Urine pH Ur Specific Slater Urine Protein Urine Glucose (UA) Urine Ketones Urine Blood Urine Nitrite Ur Leukocyte Esterase Urine RBC Urine WBC Ur Squamous Epith Cells Urine Bacteria Hyaline Casts Influenza Type A (PCR) NEGATIVE Influenza Type B (PCR) NEGATIVE RSV RNA Qual (PCR) NEGATIVE SARS-CoV-2 RNA (RT-PCR) NEGATIVE 06/07/24 06/07/24 06/07/24 17:32 19:51 20:06 MCV MCH MCHC RDW Plt Count MPV Immature Gran % (Auto) Neut % (Auto) Lymph % (Auto) [place] % (Auto) Eos % (Auto) Baso % (Auto) Lymph # (Auto) [place] # (Auto) Eos # (Auto) Baso # (Auto) Abs Immat Gran (auto) Absolute Neuts (auto) Absolute Nucleated RBC Nucleated RBC % (auto) Smear Tech's Comments APTT O2 Saturation ABG pH at Pt Temp ABG pCO2 at Pt Temp ABG pO2 at Pt Temp ABG HCO3 ABG Base Excess (Actual) VBG pH 7.40 VBG pCO2 31 VBG pO2 29 VBG HCO3 20 L VBG O2 Saturation 38.0 VBG Base Excess -3.6 Anion Gap Estim Creat Clear Calc Estimated GFR POC Glucose Random Glucose Lactic Acid Lactic Acid F/U @ 2Hr 8.6 H* Lactic Acid F/U @ 4Hr Calcium Total Bilirubin AST ALT Alkaline Phosphatase Total Creatine Kinase Troponin I High Sens 41.9 H B-Natriuretic Peptide Total Protein Albumin Lipase Urine Color Yellow Urine Appearance Clear Urine pH 6.0 Ur Specific Slater 1.020 Urine Protein 100 (2+) H Urine Glucose (UA) 100 H Urine Ketones Negative Urine Blood Large (3+) H Urine Nitrite Negative Ur Leukocyte Esterase Moderate (2+) H Urine RBC 3-5 H Urine WBC 6-10 Ur Squamous Epith Cells 0-2 Urine Bacteria 4+ Hyaline Casts 0-2 Influenza Type A (PCR) Influenza Type B (PCR) RSV RNA Qual (PCR) SARS-CoV-2 RNA (RT-PCR) 06/07/24 06/07/24 06/07/24 22:14 23:42 23:46 MCV MCH MCHC RDW Plt Count MPV Immature Gran % (Auto) Neut % (Auto) Lymph % (Auto) Hamb[place] % (Auto) Eos % (Auto) Baso % (Auto) Lymph # (Auto) Hamb[place] # (Auto) Eos # (Auto) Baso # (Auto) Abs Immat Gran (auto) Absolute Neuts (auto) Absolute Nucleated RBC Nucleated RBC % (auto) Smear Tech's Comments APTT O2 Saturation 97.0 ABG pH at Pt Temp 7.35 ABG pCO2 at Pt Temp 21 L ABG pO2 at Pt Temp 91 ABG HCO3 12 L ABG Base Excess (Actual) -11.1 VBG pH 7.32 VBG pCO2 35 VBG pO2 29 VBG HCO3 18 L VBG O2 Saturation 33.0 VBG Base Excess -6.5 Anion Gap Estim Creat Clear Calc Estimated GFR POC Glucose Random Glucose Lactic Acid Lactic Acid F/U @ 2Hr Lactic Acid F/U @ 4Hr 8.2 H* Calcium Total Bilirubin AST ALT Alkaline Phosphatase Total Creatine Kinase Troponin I High Sens B-Natriuretic Peptide Total Protein Albumin Lipase Urine Color Urine Appearance Urine pH Ur Specific Slater Urine Protein Urine Glucose (UA) Urine Ketones Urine Blood Urine Nitrite Ur Leukocyte Esterase Urine RBC Urine WBC Ur Squamous Epith Cells Urine Bacteria Hyaline Casts Influenza Type A (PCR) Influenza Type B (PCR) RSV RNA Qual (PCR) SARS-CoV-2 RNA (RT-PCR) 06/08/24 06/08/24 06/08/24 03:35 06:04 06:08 MCV 77.1 L MCH 24.2 L MCHC 31.4 RDW 21.7 H Plt Count 145 L MPV 11.0 Immature Gran % (Auto) 0.7 H Neut % (Auto) 85.8 H Lymph % (Auto) 6.5 L Hamb[place] % (Auto) 6.9 Eos % (Auto) 0.0 Baso % (Auto) 0.1 Lymph # (Auto) 1.0 L Hamb[place] # (Auto) 1.1 Eos # (Auto) 0.0 Baso # (Auto) 0.0 Abs Immat Gran (auto) 0.10 H Absolute Neuts (auto) 13.1 H Absolute Nucleated RBC 0.000 Nucleated RBC % (auto) 0.0 Smear Tech's Comments APTT O2 Saturation ABG pH at Pt Temp ABG pCO2 at Pt Temp ABG pO2 at Pt Temp ABG HCO3 ABG Base Excess (Actual) VBG pH VBG pCO2 VBG pO2 VBG HCO3 VBG O2 Saturation VBG Base Excess Anion Gap 23 H Estim Creat Clear Calc 26.4 Estimated GFR 26 POC Glucose 186 H Random Glucose 173 H Lactic Acid Lactic Acid F/U @ 2Hr 7.2 H* Lactic Acid F/U @ 4Hr 5.3 H* Calcium 8.5 Total Bilirubin 1.9 H AST 31 ALT 6 Alkaline Phosphatase 87 Total Creatine Kinase Troponin I High Sens B-Natriuretic Peptide Total Protein 7.2 Albumin 3.5 Lipase Urine Color Urine Appearance Urine pH Ur Specific Slater Urine Protein Urine Glucose (UA) Urine Ketones Urine Blood Urine Nitrite Ur Leukocyte Esterase Urine RBC Urine WBC Ur Squamous Epith Cells Urine Bacteria Hyaline Casts Influenza Type A (PCR) Influenza Type B (PCR) RSV RNA Qual (PCR) SARS-CoV-2 RNA (RT-PCR) 06/08/24 06/08/24 06/08/24 06:10 07:18 07:30 MCV MCH MCHC RDW Plt Count MPV Immature Gran % (Auto) Neut % (Auto) Lymph % (Auto) Hamb[place] % (Auto) Eos % (Auto) Baso % (Auto) Lymph # (Auto) [place] # (Auto) Eos # (Auto) Baso # (Auto) Abs Immat Gran (auto) Absolute Neuts (auto) Absolute Nucleated RBC Nucleated RBC % (auto) Smear Tech's Comments APTT O2 Saturation ABG pH at Pt Temp ABG pCO2 at Pt Temp ABG pO2 at Pt Temp ABG HCO3 ABG Base Excess (Actual) VBG pH 7.46 H VBG pCO2 26 VBG pO2 36 VBG HCO3 18 L VBG O2 Saturation 58.0 VBG Base Excess -3.5 Anion Gap Estim Creat Clear Calc Estimated GFR POC Glucose 167 H 153 H Random Glucose Lactic Acid Lactic Acid F/U @ 2Hr Lactic Acid F/U @ 4Hr Calcium Total Bilirubin AST ALT Alkaline Phosphatase Total Creatine Kinase Troponin I High Sens B-Natriuretic Peptide Total Protein Albumin Lipase Urine Color Urine Appearance Urine pH Ur Specific Slater Urine Protein Urine Glucose (UA) Urine Ketones Urine Blood Urine Nitrite Ur Leukocyte Esterase Urine RBC Urine WBC Ur Squamous Epith Cells Urine Bacteria Hyaline Casts Influenza Type A (PCR) Influenza Type B (PCR) RSV RNA Qual (PCR) SARS-CoV-2 RNA (RT-PCR) Microbiology Microbiology Results: Microbiology 06/07/24 17:26 Blood Culture - Preliminary Blood - Venous Prelim: GPC Gram Stain only Assessment and Plan (1) Congestive heart failure: Status: Acute Plan 78M PMH chronic systolic CHF with an EF of 20-25%, diabetes, hypertension, hyperlipidemia, pulmonary hypertension, CKD 3, paroxysmal AFib, COPD presented with shortness of breath and confusion Severe sepsis and acute metabolic encephalopathy due to Gram-positive coccus in chains in blood, possible UTI versus GI infection, pneumonia less likely Continue vanc and ceftriaxone Follow up cultures, CT abdomen Fluid bolus exclusion done due to CHF Acute on chronic systolic CHF Continue IV Lasix, monitor Paroxysmal AFib with RVR Metoprolol, Eliquis Acute kidney injury on CKD 3 Possible cardiorenal, continue diuresis, check CT abdomen COPD Stable, inhalers as needed Diabetes Insulin DVT prophylaxis on Eliquis DNR/DNI-poor prognosis reason for continued hospitalization: Bacteremia Quality Stroke Does the patient have a stroke diagnosis?: No VTE Prior VTE?: No VTE Risk Level:: Medical - moderate - high VTE Device Contraindication: Treatment Not Indicated VTE Drug Contraindication: N/A - Med Ordered
--- NOTE | 2024-06-08 11:26 | MHC.SLORD ---
Speech Language Pathology Order Status: Attempted to see patient for bedside dysphagia evaluation. Patient woke to sternal rub, but quickly falling back asleep, drowsy, not following commands or answering questions. Unable to administer PO trials, given patient's presentation this morning, recommend continue NPO status at this time. SUPPLY CHAIN MANAGER to assess when appropriate.
[2024-06-08 12:08] LABS: Glucose, Whole Blood 172 mg/dL (60-115)
--- NOTE | 2024-06-08 12:44 | PC.NURSE ---
pt sleeping, wakes to verbal stimulus- not speaking to this nurse- quality assurance monitor afib from 150-170s, we continue to not be able to get an O2 sat on this patient, Dr. Owusu aware of HR and inability to get O2 sat. Speech attemtped a swallow eval and stated pt should remain NPO, per Dr. Owusu- hold insulin for lunch as his poc is 172 and is not taking in po. honeycutt cath intact and draining, call orosco within reach, plan of care ongoing
[2024-06-08] MEDS: Digoxin 0.5 MG/2 ML AMPUL 0.25 MG IVPUSH (12:54)
--- NOTE | 2024-06-08 12:55 | PC.NURSE ---
pt medicated with digoxin per order
--- NOTE | 2024-06-08 13:09 | MHC.CM.PN ---
Patient is here with AMS and s/s of confusion; CM spoke with Son/HCP/Norman, @ [phone] and addressed IMM with him (original will be mailed certified letter to Son and a copy will be placed on the chart). Per Son, since December of last year, Patient has been in and out of 4 rehabs and 10 hospital stays. Per Son, the goal is to return to [facility] but there is no bed hold as of yet. CM has initiated and will follow for dc planning. Prior to December, Patient was using a walker, living alone, has a ramp, stair lift and hospital bed.
[2024-06-08] MEDS: 0.9 % Sodium Chloride Flush 3 ML SYRINGE IVFLUSH (15:12)
[2024-06-08] MEDS: Amiodarone/Dextrose 150 MG/100 ML PLAST..BAG 600 MG IV (16:34)
[2024-06-08] MEDS: Amiodarone HCL 900 MG in 0.9 % Sodium Chloride 500 ML 34.53 MG IVCONT (16:53)
--- NOTE | 2024-06-08 16:54 | PC.NURSE ---
amnio bolus then drip started per orders
[2024-06-08 17:32] LABS: Glucose, Whole Blood 186 mg/dL (60-115)
--- NOTE | 2024-06-08 18:01 | PC.NURSE ---
pt continues on the amnio drip, family at bedside, honeycutt cath patient/draining. mouth care performed
--- NOTE | 2024-06-08 20:26 | PC.NURSE ---
Insulin Per Dr. Owusu- hold insulin if pts POC is less than 200. Pt is currently NPO.
[2024-06-08 20:28] LABS: Glucose, Whole Blood 176 mg/dL (60-115)
--- NOTE | 2024-06-08 21:52 | PC.NURSE ---
Report received and care assumed at 2100. The pt can be found in bed appears restless, intermittently moaning out with family at bedside. the family member requested new/fresh ice water to assist with oral care. Pt remains in Afib on the youth nutritional monitor with heart rate fluctuating between 110-147. Family member at bedside wrang call orosco and RN to bedside, family reports pt for the first time endorsed the presence of pain/discomfort. the pt is unable to quantify pain at this time, whoever based on the nonverbal pain scale the pt is displaying outward s/s of discomfort and RN to medicate per MAR and/or contact hospitalist for additional orders.
[2024-06-08] MEDS: Acetaminophen 1,000 MG/100 ML PIGGYBACK 400 MG IV (23:03)
--- NOTE | 2024-06-08 23:26 | PC.NURSE ---
RN consulted with MD Choi as patient was unable to have a speech eval completed today s/t his presentation and inability to remains awake and alert long enough. Per speech notes the pt should remain NPO until evaluation completed. Per MD Choi, all oral medications to be held.
[2024-06-09] VITALS (16 sets, daily range): BP systolic 103–143; BP diastolic 62–98; PULSE 91–144; RESP 15–22; TEMP 36.3–38.2; O2SAT 94–100
--- NOTE | 2024-06-09 00:10 | MHC.EDTECH ---
This tech took over care of pt at 2300,rounded and introduced self to patient,vitals taken,pt is restless and unable to obtain a temp at this time,unable to obtain a O2 sat/RN aware at bedside,daughter at bedside,call orosco in reach
[2024-06-09] MEDS: Morphine Sulfate 4 MG/ML CARTRIDGE IVPUSH (00:54)
--- NOTE | 2024-06-09 01:23 | MHC.EDTECH ---
Continuous rectal probe placed at this time,100.8, patient was repositioned,bed linen changed,rubbed pts back for comfort, Isidra RN at bedside assisting T/W recliner given to pts daughter for comfort,call orosco in reach
[2024-06-09 05:58] LABS: Hematocrit 34.3 % (42.0-52.0); Hemoglobin 10.5 g/dl (14.0-18.0); Mean Corpuscular HGB Conc 30.6 g/dl (31.0-36.0); Mean Corpuscular Hemoglobin 24.1 pg (27.0-33.0); Mean Corpuscular Volume 78.7 fL (80.0-98.0); NRBC Pct Auto 0.2 /100WBC (0.0-0.2); Platelet Count 143 X10*3/uL (160-400); Red Blood Count 4.36 X10*6/uL (4.60-5.80); White Blood Count 13.1 X10*3/uL (4.8-10.8)
--- NOTE | 2024-06-09 06:14 | MHC.EDTECH ---
Rounds completed,emptied 200MLS from [place],([employer]) patient is sleeping,daughter at bedside,call orosco in reach
[2024-06-09 06:18] LABS: Alanine Aminotransferase 385 U/L (0-40); Albumin Level 3.4 g/dL (3.5-5.0); Alkaline Phosphatase 97 U/L (39-117); Anion Gap 25 (12-20); Aspartate Amino Transferase 1396 U/L (5-37); Bilirubin Direct 2.4 mg/dL (0.0-0.5); Bilirubin Total 3.2 mg/dL (0.0-1.0); Blood Urea Nitrogen 72 mg/dL (9-16); Calcium 9.4 mg/dL (8.4-10.2); Carbon Dioxide 15 mmol/L (22-29); Chloride 100 mmol/L (96-108); Creatinine Clr Calc Pharmacy 19.3; Estimated Glomerular Filt Rate 18; Glucose Random 134 mg/dL (60-115); Magnesium 2.1 mg/dL (1.6-2.6); Potassium 5.5 mmol/L (3.3-5.1); Sodium 134 mmol/L (135-145)
[2024-06-09] MEDS: cefTRIAXone sodium 2 GM VIAL IVPUSH (06:42)
--- NOTE | 2024-06-09 07:00 | CA_ITS ---
Transthoracic Echocardiogram Patient (Last, First, Middle): Norman Lee, Gender: Male Date of : 1945 Age: 78 Procedure Date: 06/09/2024 Procedure Type: Transthoracic Echocardiogram Location: [facility] – [place], [place] Height: 185.42 cm Weight: 78.02 kg BSA: 2.02 m2 Heart Rate: bpm BP: 139 / 78 mmHg Traffic Worker: Referring MD: Deven Owusu MD Clearing House Clerk: Adiel Bush MD Symptoms: afib Study Quality: Fair/Contrast ECG Rhythm: Atrial Fibrillation Conclusions: - 1. Severe LV systolic dysfunction with LVEF of 10-15% 2. Moderately dilated right ventricle with reduced RV systolic function 3. Severe biatrial enlargement 4. Moderate tricuspid regurgitation 5. Moderately elevated right ventricular systolic pressure with significantly elevated right atrial pressures 6. Trivial pericardial effusion near the LV Findings Procedure Information Contrast agent, definity, is being given per protocol without apparent complications. Left Ventricle Normal left ventricular cavity size. There is normal left ventricular wall thickness. The left ventricular systolic function is severely decreased. The visually estimated ejection fraction is between 10-15%. Diastolic function is indeterminate on the basis of available data. Right Ventricle Moderately increased right ventricular cavity size. There is mildly decreased right ventricular systolic function. Atria Severe biatrial enlargement. There is no evidence of interatrial shunt. Aortic Valve There is mild calcification of the aortic valve. There is mild thickening of the aortic valve. There is no aortic valve stenosis. There is mild aortic valve regurgitation. Mitral Valve There is mild anterior and moderate posterior mitral leaflet thickening. There is moderate mitral annular calcification. There is trace mitral valve regurgitation. There is no mitral valve stenosis. Pulmonic Valve The pulmonic valve was not well visualized. Tricuspid Valve Normal tricuspid valve structure. There is moderate tricuspid valve regurgitation. Significantly elevated right atrial pressure. Moderate pulmonary hypertension is present. Great Vessels The pulmonary artery was not well visualized. There is mild dilatation of the ascending aorta measuring 3.90 cm. Small plaque is seen in the sino tubular ridge. Venous The inferior vena cava is moderately dilated and does not collapse with inspiration. Pericardium/Pleural There is a small loculated pericardial effusion overlying the left ventricle. Prior Study Comparison No prior study available for comparison. Measurements 2D Linear Measurements IVSd: 1.24 0.6-0.9/0.6-1.0 cm LVIDd: 5.16 3.9-5.3/4.2-5.9 cm LVIDd Index: 2.55 2.4-3.2/2.2-3.1 cm/m2 LVIDs: 4.53 2.0-3.6 cm LVPWd: 1.25 0.7-1.1 cm Ao Root: 3.20 2.1-3.5 cm LA Diam: 4.90 2.7-3.8/3.0-4.0 cm LAIDs Index: 2.43 1.5-2.3 cm/m2 LV Mass: 322.72 67-162/88-224 g LV Mass Index: 159.76 43-95/49-115 g/m2 LVOT Diam: 2.50 3.0+(-)1.3 cm 2D Systolic Function EF 4C: 16.10 >55% EF 2C: 23.00 >55% Mitral Valve MV Pk E: 0.76 MV Decel Time: 113.00 E'Lateral: 9.79 E'Medial: 5.87 E/E' Med: 13.00 E/E' Lat: 7.80 PHT: 33.00 MVA PHT: 6.67 Decel [place]: 6.72 Aortic Valve AoV Pk Talha: 1.25 AoV Mn Talha: 0.89 AoV VTI: 0.20 AoV Pk Grad: 6.00 Aov Mn Grad: 4.00 LIANE Cont.VTI: 2.50 LVOT LVOT Pk Talha: 0.63 LVOT Mn Talha: 0.41 LVOT VTI: 0.10 LVOT Pk Grad: 2.00 LVOT Mn Grad: 1.00 LVOT Diam: 2.50 LVOT Area: 4.91 Diastolic Function MV Pk E: 0.76 E'Medial: 5.87 E/E' Med: 13.00 E' Laterial: 9.79 E/E' Lat: 7.80 Right Ventricle TAPSE (mm): 15.00 Tricuspid Valve TR Pk Talha: 2.99 TR Pk Grad: 36.00 RA Press: 15.00 RVSP: 51.00 Great Vessels Aorta Ao Root-2D: 3.20 2.0-3.7 cm Ao Asc: 3.90 2.1-3.4 cm Pulmonary Valve PV Pk Talha: 0.69 Peak PV Grad: 2.00 Updated in Other Vendor System with Status of Final Adiel Bush MD electronically signed on 06/09/2024 1:53:51 PM with status of Final
[2024-06-09] MEDS: Albuterol/Iprat 2.5/0.5MG 3 ML AMPUL.NEB INHALE ×2 (07:32→12:04)
--- NOTE | 2024-06-09 08:26 | HO.PM.IMPN ---
Subjective Subjective Date of Service: 06/09/24 Review of Systems Review of Systems: Yes Unobtainable due to mental condition Physical Exam Vital Signs: Vital Signs: Last Vital Signs Temp 98.6 F 06/09/24 06:40 Pulse 123 H 06/09/24 07:36 Resp 21 H 06/09/24 07:36 BP 143/85 H 06/09/24 06:40 Pulse Ox 92 06/08/24 20:00 O2 Del Method Room Air 06/09/24 02:12 BMI result Body Mass Index 24.0 slightly more alert than yesterday, answering simple questions with, tracking, appears acutely ill, frail, in discomfort, lungs diminsihed, abd soft non tender, Objective Data Active Medications Acetaminophen (Acetaminophen 325 Mg Tablet) 650 mg PO Q6H PRN PRN Reason: Pain, Mild 1-3,fever,headache Albuterol/Ipratropium (Albuterol/Iprat 2.5/0.5mg 3 Ml Ampul.Neb) 3 ml INHALE RQ4H WHILE AWAKE [facility] Last Admin: 06/09/24 07:32 Dose: 3 ml Documented By: BETH Apixaban (Apixaban 5 Mg Tablet) 5 mg PO BID [facility] Last Admin: 06/08/24 20:02 Dose: Not Given Documented By: JENNIFER Non-Admin Reason: NPO Atorvastatin Calcium (Atorvastatin Calcium 20 Mg Tablet) 20 mg PO BEDTIME [facility] Last Admin: 06/08/24 20:02 Dose: Not Given Documented By: JENNIFER Non-Admin Reason: NPO Bisacodyl (Bisacodyl 10 Mg Supp.Rect) 10 mg [place] DAILY PRN PRN Reason: Constipation Calcium Carbonate (Calcium Carbonate 750 Mg Tab.Chew) 750 mg PO Q4H PRN PRN Reason: Heartburn Ceftriaxone Sodium (Ceftriaxone Sodium 2 Gm Vial) 2 gm IVPUSH Q24H [facility] Last Admin: 06/09/24 06:42 Dose: 2 gm Documented By: FARAZ Finasteride (Finasteride 5 Mg Tablet) 5 mg PO DAILY [facility] Last Admin: 06/08/24 08:47 Dose: Not Given Documented By: JADA Non-Admin Reason: npo Furosemide (Furosemide 100 Mg/10 Ml Vial) 60 mg IVPUSH DAILY [facility]; Protocol Last Admin: 06/08/24 09:59 Dose: 60 mg Documented By: JENNIFER Glucose (Glucose Gel 15 Gm Gel..Gram.) 15 gm PO Q15M PRN; Protocol PRN Reason: per Hypoglycemia Standing Ord. Dextrose (D10) 250 mls @ 750 mls/hr IV Q15M PRN; Protocol PRN Reason: per Hypoglycemia Standing Ord. Vancomycin HCl 750 mg/ Sodium (Chloride) 265 mls @ 265 mls/hr IV Q24H [facility] Amiodarone HCl 900 mg/ Sodium (Chloride) 518 mls @ 34.533 mls/hr IVCONT .Q15H1M [facility]; Protocol Last Infusion: 06/08/24 23:05 Dose: 0.5 mg/min, 17.27 mls/hr Documented By: FARAZ Insulin Human Lispro (Insulin Lispro 100 Unit/Ml 3 Ml Vial) 0 unit SUBCUT QIDACHS [facility]; Protocol Last Admin: 06/08/24 20:26 Dose: Not Given Documented By: JENNIFER Non-Admin Reason: Physician Held Med Magnesium Hydroxide (Milk Of Magnesia 30 Ml Oral.Susp) 30 ml PO DAILY PRN PRN Reason: Constipation Melatonin (Melatonin 3 Mg Tablet) 6 mg PO BEDTIME PRN PRN Reason: Insomnia Metoprolol Tartrate (Metoprolol Tartrate 50 Mg Tablet) 50 mg PO BID [facility]; Protocol Last Admin: 06/08/24 20:03 Dose: Not Given Documented By: JENNIFER Non-Admin Reason: NPO Metoprolol Tartrate (Metoprolol Tartrate 5 Mg/5 Ml Vial) 5 mg IVPUSH Q6H PRN; Protocol PRN Reason: hr> 100 Last Admin: 06/08/24 08:38 Dose: 5 mg Documented By: JADA Ondansetron HCl (Ondansetron Hcl 4 Mg/2 Ml Vial) 4 mg IVPUSH Q8H PRN PRN Reason: Nausea and Vomiting Oxycodone HCl (Oxycodone Hcl Immed Release 5 Mg Tablet) 5 mg PO Q8H PRN PRN Reason: Pain, Severe (Pain Scale 7-10) Pantoprazole Sodium (Pantoprazole Sodium 20 Mg Tablet.Dr) 40 mg PO DAILY [facility] Last Admin: 06/08/24 08:47 Dose: Not Given Documented By: JADA Non-Admin Reason: npo Pharmacy Consult (Consult Rx Vancomycin Dosing) 1 each MISCELLANE DAILY PRN PRN Reason: Consult order Ropinirole HCl (Ropinirole Hcl 0.25 Mg Tablet) 0.25 mg PO BEDTIME [facility] Last Admin: 06/08/24 20:02 Dose: Not Given Documented By: JENNIFER Non-Admin Reason: NPO Sodium Chloride (0.9 % Sodium Chloride Flush 3 Ml Syringe) 3 ml IVFLUSH QSHIFT [facility] Last Admin: 06/09/24 04:29 Dose: Not Given Documented By: FARAZ Non-Admin Reason: 10ml flush used Tamsulosin HCl (Tamsulosin Hcl 0.4 Mg Capsule) 0.8 mg PO BEDTIME [facility] Last Admin: 06/08/24 20:02 Dose: Not Given Documented By: JENNIFER Non-Admin Reason: NPO Triamcinolone Acetonide (Triamcinolone Acetonide 40 Mg/Ml Vial) 40 mg IM DAILY [facility] Last Admin: 06/08/24 10:52 Dose: 40 mg Documented By: JENNIFER Labs 06/09/24 05:18 06/09/24 05:18 Labs: Laboratory Results - last 24 hr 06/08/24 06/08/24 06/08/24 12:04 17:23 20:22 MCV MCH MCHC RDW Plt Count MPV Absolute Nucleated RBC Nucleated RBC % (auto) Anion Gap Estim Creat Clear Calc Estimated GFR POC Glucose 172 H 186 H 176 H Random Glucose Calcium Magnesium Total Bilirubin Direct Bilirubin AST ALT Alkaline Phosphatase Total Protein Albumin 06/09/24 05:18 MCV 78.7 L MCH 24.1 L MCHC 30.6 L RDW 22.0 H Plt Count 143 L MPV 11.0 Absolute Nucleated RBC 0.020 H Nucleated RBC % (auto) 0.2 Anion Gap 25 H Estim Creat Clear Calc 19.3 Estimated GFR 18 POC Glucose Random Glucose 134 H Calcium 9.4 D Magnesium 2.1 Total Bilirubin 3.2 H Direct Bilirubin 2.4 H AST 1396 H ALT 385 H Alkaline Phosphatase 97 Total Protein 7.0 Albumin 3.4 L Microbiology Microbiology Results: Microbiology 06/07/24 16:17 Blood Culture - Preliminary Blood - Venous No growth after 24 hours. 06/07/24 17:26 Blood Culture - Preliminary Blood - Venous Prelim: GPC Gram Stain only 06/07/24 Unknown Urine Culture - Preliminary Urine clean catch - Clean Catch Midstream Culture in progress. Assessment and Plan (1) Congestive heart failure: Status: Acute Plan 78M PMH chronic systolic CHF with an EF of 20-25%, diabetes, hypertension, hyperlipidemia, pulmonary hypertension, CKD 3, paroxysmal AFib, COPD presented with shortness of breath and confusion Severe sepsis and acute metabolic encephalopathy due to Gram-positive coccus in chains in blood, possible UTI versus GI infection, vs pneumonia Continue vanc and ceftriaxone Follow up cultures CT abdomen without obvious source Fluid bolus exclusion done due to CHF Acute on chronic systolic CHF Continue IV Lasix, monitor cardio eval Paroxysmal AFib with RVR Metoprolol, Eliquis s/p 1 dose digoxin 0.5 now on amiodarone infusion heart rate improved from 150s to 120s cardio eval Acute kidney injury on CKD 3 Possible cardiorenal, continue diuresis, no hydro on CT abdomen COPD Stable, inhalers as needed Diabetes Insulin DVT prophylaxis on Eliquis DNR/DNI-poor prognosis, d/w son over phone, and daughter at bedside, plan to continue medical treatment (iv meds, labs) but not aggressive measures (resuscitation, intubation) reason for continued hospitalization: Bacteremia Quality Stroke Does the patient have a stroke diagnosis?: No VTE Prior VTE?: No VTE Risk Level:: Medical - moderate - high VTE Device Contraindication: Treatment Not Indicated VTE Drug Contraindication: N/A - Med Ordered
[2024-06-09] MEDS: vancomycin HCL 750 MG in 0.9 % Sodium Chloride 250 ML 265 MG IV (08:59)
[2024-06-09] MEDS: Furosemide 100 MG/10 ML VIAL 60 MG IVPUSH (08:59)
[2024-06-09] MEDS: 0.9 % Sodium Chloride Flush 3 ML SYRINGE IVFLUSH (09:04)
--- NOTE | 2024-06-09 09:05 | PC.NURSE ---
seen by speech, not cleared to take po meds, admitting provider notified
[2024-06-09 09:12] LABS: Glucose, Whole Blood 152 mg/dL (60-115)
[2024-06-09 09:42] LABS: Vancomycin Random 23.9 mcg/mL (15-20)
--- NOTE | 2024-06-09 09:53 | PC.NURSE ---
Patient denies pain, fentanyl held
--- NOTE | 2024-06-09 10:21 | PM.CNNEP ---
History of Present Illness Reason for Consult Consult date: 06/09/24 Reason for consult: BLUE Chief Complaint Chief complaint: Dyspnea, ams History of Present Illness Narrative: 78 yo male with a pmhx significant fordiabetes mellitus, malnutrition, hypertension, hyperlipidemia, pulmonary hypertension, chronic kidney disease stage 3, paroxysmal atrial fibrillation, COPD, muscle wasting with atrophy, depression, systolic congestive heart failure, DNR/DNI sent in by ambulance from his half-way facility [facility] for evaluation increased confusion over 2 days and shortness of breath. He reports SOB and LE edema for quite a while now. + cough with green sputum. no fever, chills, nausea, or vomiting. Also having urinary sx including dysuira, freuqency and urgency. denies and pain, melena, or hemtochezia. He was initially treated with Lasix. We will see has been placed on hold. He was given vancomycin in the recent [facility] level is 23.9. [facility] Social History Social History Household Members: Other Household Members Other:: normally home with but has been at [facility] for rehab Housing: Other Housing Other:: rehab for a few months Do you presently have visiting nurse or other home services: No Patient Tobacco Use Status: Former Tobacco user service: No Meds Allergies Allergy/AdvReac Type Severity Reaction Status Date / Time lisinopril Allergy Unknown Verified 06/07/24 14:28 Active Medications: Current Medications Albuterol/Ipratropium (Albuterol/Iprat 2.5/0.5mg 3 Ml Ampul.Neb) 3 ml INHALE RQ4H WHILE AWAKE [facility] Last Admin: 06/09/24 07:32 Dose: 3 ml Apixaban (Apixaban 5 Mg Tablet) 5 mg PO BID [facility] Last Admin: 06/09/24 09:03 Dose: Not Given Atorvastatin Calcium (Atorvastatin Calcium 20 Mg Tablet) 20 mg PO BEDTIME [facility] Last Admin: 06/08/24 20:02 Dose: Not Given Bisacodyl (Bisacodyl 10 Mg Supp.Rect) 10 mg [place] DAILY PRN PRN Reason: Constipation Calcium Carbonate (Calcium Carbonate 750 Mg Tab.Chew) 750 mg PO Q4H PRN PRN Reason: Heartburn Ceftriaxone Sodium (Ceftriaxone Sodium 2 Gm Vial) 2 gm IVPUSH Q24H [facility] Last Admin: 06/09/24 06:42 Dose: 2 gm Finasteride (Finasteride 5 Mg Tablet) 5 mg PO DAILY [facility] Last Admin: 06/09/24 09:04 Dose: Not Given Glucose (Glucose Gel 15 Gm Gel..Gram.) 15 gm PO Q15M PRN; Protocol PRN Reason: per Hypoglycemia Standing Ord. Dextrose (D10) 250 mls @ 750 mls/hr IV Q15M PRN; Protocol PRN Reason: per Hypoglycemia Standing Ord. Amiodarone HCl 900 mg/ Sodium (Chloride) 518 mls @ 34.533 mls/hr IVCONT .Q15H1M [facility]; Protocol Last Infusion: 06/08/24 23:05 Dose: 0.5 mg/min, 17.27 mls/hr Sodium Bicarbonate 150 meq/ (Dextrose) 1,000 mls @ 50 mls/hr IV .Q20H [facility] Vancomycin HCl 500 mg/ Sodium (Chloride) 110 mls @ 110 mls/hr IV Q24H [facility] Insulin Human Lispro (Insulin Lispro 100 Unit/Ml 3 Ml Vial) 0 unit SUBCUT QIDACHS [facility]; Protocol Last Admin: 06/09/24 08:44 Dose: Not Given Magnesium Hydroxide (Milk Of Magnesia 30 Ml Oral.Susp) 30 ml PO DAILY PRN PRN Reason: Constipation Melatonin (Melatonin 3 Mg Tablet) 6 mg PO BEDTIME PRN PRN Reason: Insomnia Metoprolol Tartrate (Metoprolol Tartrate 50 Mg Tablet) 50 mg PO BID [facility]; Protocol Last Admin: 06/09/24 09:03 Dose: Not Given Metoprolol Tartrate (Metoprolol Tartrate 5 Mg/5 Ml Vial) 5 mg IVPUSH Q6H PRN; Protocol PRN Reason: hr> 100 Last Admin: 06/08/24 08:38 Dose: 5 mg Ondansetron HCl (Ondansetron Hcl 4 Mg/2 Ml Vial) 4 mg IVPUSH Q8H PRN PRN Reason: Nausea and Vomiting Pantoprazole Sodium (Pantoprazole Sodium 20 Mg Tablet.) 40 mg PO DAILY [facility] Last Admin: 06/09/24 09:03 Dose: Not Given Pharmacy Consult (Consult Rx Vancomycin Dosing) 1 each MISCELLANE DAILY PRN PRN Reason: Consult order Ropinirole HCl (Ropinirole Hcl 0.25 Mg Tablet) 0.25 mg PO BEDTIME [facility] Last Admin: 06/08/24 20:02 Dose: Not Given Sodium Chloride (0.9 % Sodium Chloride Flush 3 Ml Syringe) 3 ml IVFLUSH QSHIFT [facility] Last Admin: 06/09/24 09:04 Dose: 3 ml Tamsulosin HCl (Tamsulosin Hcl 0.4 Mg Capsule) 0.8 mg PO BEDTIME [facility] Last Admin: 06/08/24 20:02 Dose: Not Given Triamcinolone Acetonide (Triamcinolone Acetonide 40 Mg/Ml Vial) 40 mg IM DAILY [facility] Last Admin: 06/09/24 09:04 Dose: Not Given Home Medications ?Medication ?Instructions ?Recorded ?Confirmed ?Last Taken ?Type acetaminophen 325 mg tablet 975 mg PO Q8H PRN Fever Or Pain 06/07/24 06/07/24 Unknown History apixaban 5 mg tablet (Eliquis) 5 mg PO BID 06/07/24 06/07/24 Unknown History atorvastatin 20 mg tablet 20 mg PO BEDTIME 06/07/24 06/07/24 Unknown History bisacodyl 10 mg rectal suppository 10 mg GA DAILY PRN Constipation 06/07/24 06/07/24 Unknown History (Dulcolax (bisacodyl)) dapagliflozin propanediol 5 mg 5 mg PO DAILY 06/07/24 06/07/24 Unknown History tablet (Farxiga) duloxetine 60 mg capsule,delayed 60 mg PO DAILY 06/07/24 06/07/24 Unknown History release sprinkle finasteride 5 mg tablet 5 mg PO DAILY 06/07/24 06/07/24 Unknown History furosemide 40 mg tablet 40 mg PO BID 06/07/24 06/07/24 Unknown History gabapentin 100 mg capsule 100 mg PO Q8H 06/07/24 06/07/24 Unknown History guaifenesin 100 mg/5 mL oral liquid 100 mg PO Q6H PRN Cough 06/07/24 06/07/24 Unknown History ipratropium 0.5 mg-albuterol 3 mg 3 ml inhalation Q6H 06/07/24 06/07/24 Unknown History (2.5 mg base)/3 mL nebulization soln lidocaine 4 % topical patch 1 patch topical DAILY 06/07/24 06/07/24 Unknown History magnesium hydroxide 400 mg/5 mL 30 ml PO BEDTIME PRN Constipation 06/07/24 06/07/24 Unknown History oral suspension (Milk of Magnesia) melatonin 5 mg tablet 5 mg PO BEDTIME 06/07/24 06/07/24 Unknown History metformin 500 mg tablet,extended 500 mg PO BID 06/07/24 06/07/24 Unknown History release 24 hr metoprolol tartrate 50 mg tablet 50 mg PO BID 06/07/24 06/07/24 Unknown History oxycodone 5 mg tablet 5 mg PO Q8H PRN Pain 06/07/24 06/07/24 Unknown History pantoprazole 40 mg tablet,delayed 40 mg PO DAILY 06/07/24 06/07/24 Unknown History release potassium chloride 20 mEq 20 meq PO DAILY 06/07/24 06/07/24 Unknown History tablet,extended release ropinirole 0.25 mg tablet 0.25 mg PO BEDTIME 06/07/24 06/07/24 Unknown History sodium phosphates 19 gram-7 118 ml GA DAILY PRN Constipation 06/07/24 06/07/24 Unknown History gram/118 mL enema (Fleet Enema) tamsulosin 0.4 mg capsule 0.8 mg PO BEDTIME 06/07/24 06/07/24 Unknown History triamcinolone acetonide 40 mg/mL 40 mg IM DAILY 06/07/24 06/07/24 Unknown History suspension for injection Physical Exam Vital Signs: Last Vital Signs Temp 97.4 F 06/09/24 10:18 Pulse 124 H 06/09/24 10:18 Resp 20 06/09/24 10:18 BP 138/95 H 06/09/24 10:18 Pulse Ox 98 06/09/24 10:18 O2 Del Method Room Air 06/09/24 10:18 BMI result Body Mass Index 24.0 Const General: ill appearing Neck Neck: Yes supple Resp Auscultation: clear to auscultation bilaterally Cardio Palpation: no palpable S3 Heart sounds: no rubs GI Palpation (GI): Soft to palpation Auscultation: normal bowel sounds Neuro Motor exam (neuro): no asterixis Results Lab Results 06/09/24 05:18 06/09/24 05:18 Lab results: Chemistry 06/07/24 06/08/24 06/09/24 17:26 06:04 05:18 Sodium 138 134 L 134 L Potassium 4.4 4.8 5.5 H Carbon Dioxide 20 L 17 L 15 L BUN 48 H 56 H 72 H Creatinine 1.92 H 2.45 H 3.35 H Calcium 8.7 8.5 9.4 D Hematology 06/07/24 06/08/24 06/09/24 17:26 06:04 05:18 WBC 17.3 H 15.3 H 13.1 H Hgb 11.1 L 11.0 L 10.5 L Plt Count 134 L 145 L 143 L Urinalysis 06/07/24 20:06 Urine Color Yellow Urine Appearance Clear Urine pH 6.0 Ur Specific Howell 1.020 Urine Protein 100 (2+) H Urine Glucose (UA) 100 H Urine Ketones Negative Urine Blood Large (3+) H Urine Nitrite Negative Ur Leukocyte Esterase Moderate (2+) H Urine RBC 3-5 H Urine WBC 6-10 Ur Squamous Epith Cells 0-2 Hyaline Casts 0-2 Assessment and Plan (1) Acute kidney injury superimposed on chronic kidney disease: Status: Acute Plan BLUE most likely due to hypoperfusion. Tubular injury can not be ruled out especially from vanco toxicity. No evidence of obstruction. Acute glomerular nephritis/interstitial disease can not be ruled out yet. Recommendation agree with holding diuretics for now. Cautious hydration. Replace bicarb. Watch urine output closely. No absolute indication for dialysis yet. Serologies ordered. Shall follow with the team Procedures Date of Service Date of Service: 06/09/24
--- NOTE | 2024-06-09 10:22 | P.CDIM_ITS ---
PROVIDER RESPONSE TEXT: To clarify, the appropriate diagnosis supported by the clinical indicators: Hyperkalemia: acute QUERY TEXT: PHYSICIAN'S DOCUMENTATION REQUEST Date of Query: 06/09/2024 10:11 AM EST Patient Name: LUKE PORTER Admit Date: 06/08/2024 Dear Deven Owusu MD, A review of the medical record indicates additional documentation may be needed. Please review below and update the documentation accordingly. Clinical Indicators: LAB FINDINGS: potassium 5.5 H Based on the above, is there a diagnosis that correlates with these lab findings: Hyperkalemia possible, probable, suspected, etc. Labs indicate a diagnosis of (please specify) Other (explain) Clinically unable to determine (explain) Thank you, Trena Barragan, CCS, CDIS Use of terms such as suspected, likely, concern for, or probable (associated with a specific diagnosi s that is being evaluated, monitored, or treated as if it exists) are acceptable and can be coded in the inpatient se tting, when documented at the time of discharge. Please use your independent medical judgment in providing your response. THIS QUERY IS PART OF THE PERMANENT MEDICAL RECORD
[2024-06-09 10:58] LABS: Glucose, Whole Blood 156 mg/dL (60-115)
--- NOTE | 2024-06-09 10:58 | PM.CNCAR ---
History of Present Illness History of Present Illness Date of Service: 06/09/24 Requesting physician: Deven Owusu Consult reason: atrial fibrillation and other (Cardiomyopathy) Chief complaint: Dyspnea, ams Narrative: I was consulted to see Norman in cardiology consultation today for significantly elevated BNP and rapid atrial fibrillation. History is difficult to obtain from the patient and mostly obtained from the chart. [facility] 78[facility] who was referred from the due to altered mental status. Patient has been over the last 3 months as per the daughter present bedside multiple different hospitalization, the latest 1 at [facility] and was then sent to [facility] for rehabilitation from very he has been referred here. Patient has complicated past medical history details of this are not available although he has significant past medical history including severe LV systolic dysfunction with measured LV ejection fraction by recent echocardiogram at [facility] of about 10%, paroxysmal atrial fibrillation has reported on oral anticoagulation, chronic kidney disease, diabetes, unknown coronary status, hypertension, recurrent UTIs recently, muscle wasting and cachexia, question cognitive impairment. Patient was sent because of altered mental status and subsequently when he came to the Emergency was noted to be in rapid atrial fibrillation, stable hemodynamics, significantly elevated LFTs, acute renal failure with significant elevated creatinine, markedly elevated BNP, question CHF as noted by chest x-ray, significant lactic acidosis with reduced urine output, leukocytosis, noted Gram-positive bacteria in his bloodstream suggestive of sepsis and overall findings suggestive of severe sepsis. As per the daughter patient's mental status has improved since yesterday. Patient was more responsive as per the daughter. No overt cardiac symptoms reported. Blood pressure is stable. Oxygenation appears stable on low requirement of oxygen. Difficult control rate. Speech pathologist evaluated patient at bedside and appears that he has impaired swallowing ability. He is currently on IV amiodarone drip. Review of Systems Review of Systems: Yes Unobtainable due to mental status PMFSH Social History Social History Household Members: Other Household Members Other:: normally home with but has been at [facility] for rehab Housing: Other Housing Other:: rehab for a few months Do you presently have visiting nurse or other home services: No Patient Tobacco Use Status: Former Tobacco user service: No Meds Allergies Allergy/AdvReac Type Severity Reaction Status Date / Time lisinopril Allergy Unknown Verified 06/07/24 14:28 Active Medications: Current Medications Albuterol/Ipratropium (Albuterol/Iprat 2.5/0.5mg 3 Ml Ampul.Neb) 3 ml INHALE RQ4H WHILE AWAKE [facility] Last Admin: 06/09/24 07:32 Dose: 3 ml Apixaban (Apixaban 5 Mg Tablet) 5 mg PO BID [facility] Last Admin: 06/09/24 09:03 Dose: Not Given Atorvastatin Calcium (Atorvastatin Calcium 20 Mg Tablet) 20 mg PO BEDTIME [facility] Last Admin: 06/08/24 20:02 Dose: Not Given Bisacodyl (Bisacodyl 10 Mg Supp.Rect) 10 mg WA DAILY PRN PRN Reason: Constipation Calcium Carbonate (Calcium Carbonate 750 Mg Tab.Chew) 750 mg PO Q4H PRN PRN Reason: Heartburn Ceftriaxone Sodium (Ceftriaxone Sodium 2 Gm Vial) 2 gm IVPUSH Q24H [facility] Last Admin: 06/09/24 06:42 Dose: 2 gm Finasteride (Finasteride 5 Mg Tablet) 5 mg PO DAILY [facility] Last Admin: 06/09/24 09:04 Dose: Not Given Glucose (Glucose Gel 15 Gm Gel..Gram.) 15 gm PO Q15M PRN; Protocol PRN Reason: per Hypoglycemia Standing Ord. Dextrose (D10) 250 mls @ 750 mls/hr IV Q15M PRN; Protocol PRN Reason: per Hypoglycemia Standing Ord. Amiodarone HCl 900 mg/ Sodium (Chloride) 518 mls @ 34.533 mls/hr IVCONT .Q15H1M [facility]; Protocol Last Infusion: 06/08/24 23:05 Dose: 0.5 mg/min, 17.27 mls/hr Sodium Bicarbonate 150 meq/ (Dextrose) 1,000 mls @ 50 mls/hr IV .Q20H [facility] Vancomycin HCl 500 mg/ Sodium (Chloride) 110 mls @ 110 mls/hr IV Q24H [facility] Insulin Human Lispro (Insulin Lispro 100 Unit/Ml 3 Ml Vial) 0 unit SUBCUT QIDACHS [facility]; Protocol Last Admin: 06/09/24 08:44 Dose: Not Given Magnesium Hydroxide (Milk Of Magnesia 30 Ml Oral.Susp) 30 ml PO DAILY PRN PRN Reason: Constipation Melatonin (Melatonin 3 Mg Tablet) 6 mg PO BEDTIME PRN PRN Reason: Insomnia Metoprolol Tartrate (Metoprolol Tartrate 50 Mg Tablet) 50 mg PO BID [facility]; Protocol Last Admin: 06/09/24 09:03 Dose: Not Given Metoprolol Tartrate (Metoprolol Tartrate 5 Mg/5 Ml Vial) 5 mg IVPUSH Q6H PRN; Protocol PRN Reason: hr> 100 Last Admin: 06/08/24 08:38 Dose: 5 mg Ondansetron HCl (Ondansetron Hcl 4 Mg/2 Ml Vial) 4 mg IVPUSH Q8H PRN PRN Reason: Nausea and Vomiting Pantoprazole Sodium (Pantoprazole Sodium 20 Mg Tablet.Dr) 40 mg PO DAILY [facility] Last Admin: 06/09/24 09:03 Dose: Not Given Pharmacy Consult (Consult Rx Vancomycin Dosing) 1 each MISCELLANE DAILY PRN PRN Reason: Consult order Ropinirole HCl (Ropinirole Hcl 0.25 Mg Tablet) 0.25 mg PO BEDTIME [facility] Last Admin: 06/08/24 20:02 Dose: Not Given Sodium Chloride (0.9 % Sodium Chloride Flush 3 Ml Syringe) 3 ml IVFLUSH QSHIFT [facility] Last Admin: 06/09/24 09:04 Dose: 3 ml Tamsulosin HCl (Tamsulosin Hcl 0.4 Mg Capsule) 0.8 mg PO BEDTIME [facility] Last Admin: 06/08/24 20:02 Dose: Not Given Triamcinolone Acetonide (Triamcinolone Acetonide 40 Mg/Ml Vial) 40 mg IM DAILY [facility] Last Admin: 06/09/24 09:04 Dose: Not Given Home Medications ?Medication ?Instructions ?Recorded ?Confirmed ?Last Taken ?Type acetaminophen 325 mg tablet 975 mg PO Q8H PRN Fever Or Pain 06/07/24 06/07/24 Unknown History apixaban 5 mg tablet (Eliquis) 5 mg PO BID 06/07/24 06/07/24 Unknown History atorvastatin 20 mg tablet 20 mg PO BEDTIME 06/07/24 06/07/24 Unknown History bisacodyl 10 mg rectal suppository 10 mg WA DAILY PRN Constipation 06/07/24 06/07/24 Unknown History (Dulcolax (bisacodyl)) dapagliflozin propanediol 5 mg 5 mg PO DAILY 06/07/24 06/07/24 Unknown History tablet (Farxiga) duloxetine 60 mg capsule,delayed 60 mg PO DAILY 06/07/24 06/07/24 Unknown History release sprinkle finasteride 5 mg tablet 5 mg PO DAILY 06/07/24 06/07/24 Unknown History furosemide 40 mg tablet 40 mg PO BID 06/07/24 06/07/24 Unknown History gabapentin 100 mg capsule 100 mg PO Q8H 06/07/24 06/07/24 Unknown History guaifenesin 100 mg/5 mL oral liquid 100 mg PO Q6H PRN Cough 06/07/24 06/07/24 Unknown History ipratropium 0.5 mg-albuterol 3 mg 3 ml inhalation Q6H 06/07/24 06/07/24 Unknown History (2.5 mg base)/3 mL nebulization soln lidocaine 4 % topical patch 1 patch topical DAILY 06/07/24 06/07/24 Unknown History magnesium hydroxide 400 mg/5 mL 30 ml PO BEDTIME PRN Constipation 06/07/24 06/07/24 Unknown History oral suspension (Milk of Magnesia) melatonin 5 mg tablet 5 mg PO BEDTIME 06/07/24 06/07/24 Unknown History metformin 500 mg tablet,extended 500 mg PO BID 06/07/24 06/07/24 Unknown History release 24 hr metoprolol tartrate 50 mg tablet 50 mg PO BID 06/07/24 06/07/24 Unknown History oxycodone 5 mg tablet 5 mg PO Q8H PRN Pain 06/07/24 06/07/24 Unknown History pantoprazole 40 mg tablet,delayed 40 mg PO DAILY 06/07/24 06/07/24 Unknown History release potassium chloride 20 mEq 20 meq PO DAILY 06/07/24 06/07/24 Unknown History tablet,extended release ropinirole 0.25 mg tablet 0.25 mg PO BEDTIME 06/07/24 06/07/24 Unknown History sodium phosphates 19 gram-7 118 ml WA DAILY PRN Constipation 06/07/24 06/07/24 Unknown History gram/118 mL enema (Fleet Enema) tamsulosin 0.4 mg capsule 0.8 mg PO BEDTIME 06/07/24 06/07/24 Unknown History triamcinolone acetonide 40 mg/mL 40 mg IM DAILY 06/07/24 06/07/24 Unknown History suspension for injection Physical Exam Vital Signs: Vital Signs: Last Vital Signs Temp 97.4 F 06/09/24 10:18 Pulse 124 H 06/09/24 10:18 Resp 20 06/09/24 10:18 BP 138/95 H 06/09/24 10:18 Pulse Ox 98 06/09/24 10:18 O2 Del Method Room Air 06/09/24 10:18 BMI result Body Mass Index 24.0 Const: General: cooperative, no acute distress, alert, awake, in distress and ill appearing Nutritional Appearance: malnourished HEENT: Head: Yes normocephalic and Yes atraumatic Neck: Neck: Yes trachea midline, Yes supple and Yes no JVD Resp: Effort & Inspection: decreased respiratory effort Auscultation: no rales, no wheezes and diminished lung sounds Cardio: Jugular venous distension: no JVD Palpation: abnormal PMI displaced PMI Rate: tachycardic Rhythm: abnormal rhythm irregularly irregular Heart sounds: S1 normal heart sound present and S2 normal heart sound present GI: Auscultation: normal bowel sounds Skin: General skin exam: no rashes or lesions noted and ecchymosis Neuro: General: moves all extremities Extrem: General: Yes no clubbing, cyanosis or edema Objective Labs and Meds 06/09/24 05:18 06/09/24 05:18 Lab results: Laboratory Results - last 24 hr 06/08/24 06/08/24 06/08/24 12:04 17:23 20:22 WBC RBC Hgb Hct MCV MCH MCHC RDW Plt Count MPV Absolute Nucleated RBC Nucleated RBC % (auto) Sodium Potassium Chloride Carbon Dioxide Anion Gap BUN Creatinine Estim Creat Clear Calc Estimated GFR POC Glucose 172 H 186 H 176 H Random Glucose Calcium Magnesium Total Bilirubin Direct Bilirubin AST ALT Alkaline Phosphatase Total Protein Albumin Random Vancomycin 06/09/24 06/09/24 06/09/24 05:18 08:40 09:16 WBC 13.1 H RBC 4.36 L Hgb 10.5 L Hct 34.3 L MCV 78.7 L MCH 24.1 L MCHC 30.6 L RDW 22.0 H Plt Count 143 L MPV 11.0 Absolute Nucleated RBC 0.020 H Nucleated RBC % (auto) 0.2 Sodium 134 L Potassium 5.5 H Chloride 100 Carbon Dioxide 15 L Anion Gap 25 H BUN 72 H Creatinine 3.35 H Estim Creat Clear Calc 19.3 Estimated GFR 18 POC Glucose 152 H Random Glucose 134 H Calcium 9.4 D Magnesium 2.1 Total Bilirubin 3.2 H Direct Bilirubin 2.4 H AST 1396 H ALT 385 H Alkaline Phosphatase 97 Total Protein 7.0 Albumin 3.4 L Random Vancomycin 23.9 H Imaging Radiologist's impression: Impressions Abdomen/Pelvis CT 06/08/24 14:14 IMPRESSION: 1. Small bilateral pleural effusions. Anasarca. 2. Small amount of ascites in the upper abdomen and pelvis. 3. Cholelithiasis. 4. Sigmoid diverticulosis without evidence of diverticulitis. Electronically signed by: Steven Robins MD 06/08/2024 02:[address] [facility] Assessment and Plan (1) Atrial fibrillation with RVR: Status: Acute Patient presents with atrial fibrillation rapid ventricular response, duration unknown, most likely due to his underlying severe medical illness triggering atrial fibrillation as well as elevated rate. This will remain difficult control. Although his blood pressure is stable at this point time. Will continue to use IV metoprolol and obtain enteral route with NG-tube to give him metoprolol through the NG tube. For now given lack of other options IV amiodarone is adequate to achieve rate. This can potentially convert him back to sinus rhythm and increase risk of stroke if he is not on adequate anticoagulation. On this should be considered. He is not a good candidate for digoxin due to his acute renal failure as well as calcium channel blockers due to severe LV systolic dysfunction. Overall prognosis is grim and atrial fibrillation management will depend on his response to underlying acute medical illness which appears to be severe sepsis syndrome. Continue supportive care. Findings were discussed with daughter. (2) Left ventricular systolic dysfunction (LVSD): Status: Acute Prior history of severe LV systolic dysfunction recently at [facility]. He has history of systolic congestive heart failure. Etiology is unclear. Clinically currently does not appear to be in significant heart failure at this point in time by clinical exam. His BNP is markedly elevated most likely given his underlying significant systolic dysfunction with rapid atrial fibrillation setting of acute renal failure leading to reduce clearance of BNP. At this point time he appears to be euvolemic and continue to monitor intake and output chart. His oxygenation is stable. Continue metoprolol for rate control neurohormonal modulation. I would hold off on his other medications especially metformin given his acute renal failure and acidosis. Again overall prognosis is guarded. Greater than 40 minutes was spent in managing his complex care. Procedures Date of Service Date of Service: 06/09/24
--- NOTE | 2024-06-09 11:03 | MHC.SL.SWA ---
Speech Pathologist Impression: Moderate oral, moderate to significant pharyngeal dysphagia in presence of weakness Risk of Aspiration Due to: Lethargy Medically Fragile Reduced Cognition Weak Cough Weak Voice Dysphasia Diet Status: Liquid Consistency and Strategies for Safe Swallow: Liquid Intake Recommendation: NPO Liquid Intake Strategies: Solid Food Consistency: Dietary Recommendations: NPO Additional Modifications to Solid Foods: Oral Medication Intake: NPO Please contact the pharmacy regarding appropriate crushable or liquid drug formulations that are available whenever modified delivery is recommended. Compensatory Strategies and Precautions to be Taken for Safe Swallow: Supervision While Eating and Drinking for Safe Swallow: PO with [employer]IL[employer]ER Foods to Avoid: Swallowing Recommended Treatments: Recommendation for Speech: Further Testing Needed Inpatient Speech Therapy Comment: Ice chips/oral swabs permitted, anticipate pt will resume PO with modified diet upon improved status, [employer] following closely Frequency/Duration: Daily M-F Date Range for Service Req: Timeline to reassess: Medical Collections Specialist Clinican/Clinical Fellow: No Supervisory Statement: I have reviewed and agree with the student/clinical fellow's documentation: N/A Speech Language Pathologist: Aimee Williamson M.S., CCC-[employer]ER
[2024-06-09] MEDS: Sodium Bicarbonate 8.4% 150 MEQ in Dextrose 5 % 850 ML 50 MEQ IV (12:25)
[2024-06-09] MEDS: Amiodarone HCL 900 MG in 0.9 % Sodium Chloride 500 ML 17.27 MG IVCONT (15:43)
[2024-06-09 15:48] LABS: Glucose, Whole Blood 179 mg/dL (60-115)
[2024-06-09] MEDS: HYDROmorphone HCl 0.5 MG/0.5 ML SYRINGE 0.25 MG IVPUSH (15:54)
--- NOTE | 2024-06-09 17:17 | HO.WOUND ---
Wound Consult: Initial 78yr old?male admitted to [facility] on 06/08/24 - See progress notes and H&P for detailed history.? Wound consult placed for Sacrum.? Patient agreeable to assessment and photo documentation.? SAcrum Etiology: ?Deep tissue injury ?Present on Admission Measurements: 3cm x 4cm x ocm Wound Bed: intact dark purple maroon nonblanchable tissue over bony prominence Drainage / Odor: None Edges: ? irregular Sarah wound: red pink slow to dorina ? No Induration, Fluctuance or Warmth noted Pain: tenderness reported Goals of Treatment: ? Foam dressing and off load with Q 2hr turns Left Heel - pink red intact blanchable tissue - friction noted with dry peeling skin. Skin prep and foam applied. Right Heel Etiology: ??DTI Present on Admission Measurements: 0.5cm x 0.6cm x 0cm Wound Bed: light blue purple intact nonblanchable tissue Drainage / Odor: None Edges: ? irregular Sarah wound: ?red slow to dorina tissue No Induration, Fluctuance or Warmth noted Pain: denies Goals of Treatment: ? Off load pressure with pillows and foam dressing applied Recommendations: 1. Turn and Reposition every 2 hours and as needed for patient comfort.? Use pillows or wedges to support off loading positions. 2. Off Load all bony prominences with use of pillows and heel boots if needed.? Apply Preventative foams where needed. ? 3. Monitor for incontinence and moisture control, use barrier creams when needed for prevention and treatment. 4. Provide adequate and supplemental nutrition.? 5. Order low air loss mattress. 6. When applicable maintain blood glucose levels per Providers order. 7. Sacrum - Off Load Pressure with Q2 hr turns and use of pillows - Cleanse with PH balance spray or wipes, pat dry. ?Apply foam dressing to aid in off loading and protection from friction. Change every 5 days and PRN. 8. Bilateral Heels - Elevate heels off off surface of bed - apply skin prep allow to dry. Apply foam dressing peel back and assess skin q shift and change every 5 days and PRN. Re-consult wound care Nurse for wound deterioration or wound changes.
[2024-06-09 17:18] LABS: Appearance Urine Cloudy; Color Urine Dark Yellow; Glucose Urine UA Negative (Negative); Leukocyte Esterase Urine Moderate (2+) (Negative); Nitrite Urine Negative (Negative); Specific Gravity - Urine 1.015 (1.005-1.025); UMIC TRIGGER UA YES; Urine Blood Large (3+) (Negative); Urine Ketones Trace mg/dL (Negative); Urine Protein 100 (2+) mg/dL (Neg-Trace)
[2024-06-09 17:29] LABS: Total Protein Urine Random 144 mg/dL (<12)
[2024-06-09 17:53] LABS: Bacteria Urine Trace (None Seen); Hyaline Casts Urine 0-2 /LPF (0-2)
--- NOTE | 2024-06-09 18:56 | PC.RT ---
For both treatments that were not given; the patient was sleeping and his lungs were clear. His breathing pattern did not suggest any distress.
[2024-06-09 20:43] LABS: Glucose, Whole Blood 162 mg/dL (60-115)
[2024-06-09] MEDS: LORazepam 2 MG/ML VIAL 0.25 MG IVPUSH (22:22)
[2024-06-09] MEDS: Metoprolol Tartrate 5 MG/5 ML VIAL IVPUSH (22:39)
[2024-06-10] VITALS (8 sets, daily range): BP systolic 128–137; BP diastolic 65–84; PULSE 107–133; RESP 16–18; TEMP 36.6–36.9; O2SAT 93–98; BMI 24.0
--- NOTE | 2024-06-10 01:40 | PC.NURSE ---
At start of shift pt with IV infiltration to R wrist with Sodium Bicarb infusing. IV paused and IV removed. Attempts made x4 including US guided for IV access with no success. made aware. OK to wait for possible PICC line placement in the AM. Pt also continues to be afib on monitor with HR between 115-140 but not sustaining 130-140s.On Amio gtt 0.5mg/min. Given IV push PRN Metoprolol. MD Bowers made aware. Patient also on Amiodarone decreased rate for 24hrs as of 2300. contacted regarding continuation of medication. Given OK to continue Amiodarone at current rate.
[2024-06-10] MEDS: HYDROmorphone HCl 0.5 MG/0.5 ML SYRINGE 0.25 MG IVPUSH ×2 (03:35→08:43)
[2024-06-10] MEDS: cefTRIAXone sodium 2 GM VIAL IVPUSH (06:07)
[2024-06-10 07:07] LABS: Hematocrit 36.9 % (42.0-52.0); Mean Corpuscular HGB Conc 29.8 g/dl (31.0-36.0); Mean Corpuscular Hemoglobin 24.8 pg (27.0-33.0); Mean Corpuscular Volume 83.1 fL (80.0-98.0); NRBC Pct Auto 0.4 /100WBC (0.0-0.2); Red Blood Count 4.44 X10*6/uL (4.60-5.80); Red Cell Distribution Width 22.9 % (11.0-16.0); White Blood Count 14.3 X10*3/uL (4.8-10.8)
[2024-06-10 07:16] LABS: Alanine Aminotransferase 925 U/L (0-40); Albumin Level 3.7 g/dL (3.5-5.0); Alkaline Phosphatase 119 U/L (39-117); Aspartate Amino Transferase 2907 U/L (5-37); Bilirubin Direct 2.8 mg/dL (0.0-0.5); Bilirubin Total 3.9 mg/dL (0.0-1.0); Blood Urea Nitrogen 88 mg/dL (9-16); Calcium 9.3 mg/dL (8.4-10.2); Creatinine Clr Calc Pharmacy 17.1; Estimated Glomerular Filt Rate 16; Glucose Random 121 mg/dL (60-115); Total Protein 7.7 g/dL (6.5-8.0)
[2024-06-10 07:27] LABS: Glucose, Whole Blood 138 mg/dL (60-115)
[2024-06-10] MEDS: Albuterol/Iprat 2.5/0.5MG 3 ML AMPUL.NEB INHALE ×2 (07:32→11:32)
[2024-06-10 07:33] LABS: TSH reflex Free T4 0.46 uIU/mL (0.32-4.0)
[2024-06-10 07:39] LABS: Anion Gap 34 (12-20); Carbon Dioxide 11 mmol/L (22-29); Chloride 101 mmol/L (96-108); Potassium 6.1 mmol/L (3.3-5.1); Sodium 140 mmol/L (135-145)
[2024-06-10 07:49] LABS: Venous Blood Gas Refer to POC result
[2024-06-10 07:53] LABS: VBG Base Excess -10.6 mmol/L; VBG HCO3 14 mmol/L (22-26); VBG pCO2 28 mmHg; VBG pO2 45 mmHg
[2024-06-10 07:54] LABS: INTERNATIONAL NORM RATIO 3.6 (0.9-1.1); Prothrombin Time 42.3 SEC (10.9-12.4)
[2024-06-10 07:57] LABS: Atypical Lymph Absolute Manual 0.4 x10*3/uL; Atypical Lymphs Percent Manual 3 % (0-6); Band Neutrophils Percent 5 % (3-5); Lymphocytes Absolute Manual 0.3 X10*3/uL (1.2-4.9); Lymphocytes Percent Manual 2 % (20-40); Metamyelocytes Absolute 0.1 X10*3/uL; Metamyelocytes Percent 1 %; Monocytes Absolute Manual 0.4 X10*3/uL (0.1-1.2); Monocytes Percent Manual 3 % (2-11); Neutrophils Percent Manual 86 % (45-73)
[2024-06-10 07:58] LABS: RBC Morphology NOTED
[2024-06-10 08:03] LABS: Acanthocytes 3+ (>5) /OIF; Schistocytes 2+ (3-5) /OIF; Target Cells 1+ (5-14) /OIF
[2024-06-10 08:04] LABS: Burr Cells 3+ (>5) /OIF; Polychromasia 2+ (3-5) /OIF; Toxic Vacuolation PRESENT
[2024-06-10 08:05] LABS: Large Platelet PRESENT; Platelet Estimate DECREASED (NORMAL); Platelet Morphology Comment NOTED
[2024-06-10] MEDS: Albuterol Sulfate (0.083%) 2.5 MG/3 ML VIAL.NEB 10 MG INHALE (08:09)
[2024-06-10 08:13] LABS: ABG Base Excess -11.1 mmol/L; ABG HCO3 12 mmol/L (22-26); ABG pCO2 21 mmHg (32-45); ABG pH 7.36 (7.35-7.45); ABG pO2 83 mmHg (83-108)
[2024-06-10 08:18] LABS: Beta-Hydroxybutyrate 0.97 mmol/L (0.02-0.27)
[2024-06-10 08:22] LABS: Platelet Count 110 X10*3/uL (160-400)
[2024-06-10] MEDS: Insulin Regular, Human 100 UNIT/ML 10 ML VIAL 10 UNIT IVPUSH (08:27)
[2024-06-10 08:31] LABS: Vancomycin Random 20.4 mcg/mL (15-20)
--- NOTE | 2024-06-10 08:36 | HE.PHANOTE ---
Re: Zulma Renal function continues to decline. Trough returned at at 20.4. Continue current dose of 500mg q24h, with predicted AUC 536, predicted trough 18.9. Next trough 06/11 @ 0800.
[2024-06-10 08:46] LABS: Reflex Lactate? Lactic Acid Added
[2024-06-10] MEDS: Metoprolol Tartrate 5 MG/5 ML VIAL IVPUSH ×2 (08:50→12:05)
[2024-06-10 08:58] LABS: ABG Refer to POC result
[2024-06-10] MEDS: LORazepam 2 MG/ML VIAL 0.25 MG IVPUSH (09:33)
--- NOTE | 2024-06-10 10:13 | PM.PNCARD ---
Subjective Subjective Date of Service: 06/10/24 Principal diagnosis: Sepsis, cardiomyopathy, atrial fibrillation. Interval history: Patient seems overnight still more confused. Atrial fibrillation rate is difficult control. LFTs are further worsened so as the creatinine as well as her platelet count dropping at this point time. Lactic acid is markedly elevated at 10. Blood pressures remained stable. Oxygenation has remained stable. Review of Systems Review of Systems Yes Unobtainable due to mental status Reports confusion Psychiatric: Reports confusion Physical Exam Vital Signs: Last Vital Signs Temp 98.4 F 06/10/24 08:00 Pulse 116 H 06/10/24 08:11 Resp 18 06/10/24 08:11 BP 128/65 06/10/24 08:00 Pulse Ox 94 06/10/24 08:00 O2 Del Method Room Air 06/10/24 08:00 BMI result Body Mass Index 24.0 Const General: combative and confusion Orientation/consciousness: confusion Neck Neck: Yes trachea midline, Yes supple and Yes no JVD Resp Effort & Inspection: decreased respiratory effort Auscultation: clear to auscultation bilaterally and diminished lung sounds Cardio Rate: tachycardic Rhythm: abnormal rhythm irregularly irregular Heart sounds: S1 normal heart sound present, S2 normal heart sound present, no click, no gallops and no murmurs GI Inspection: Yes normal to inspection and Yes other Palpation (GI): Soft to palpation Auscultation: normal bowel sounds Neuro General: moves all extremities and confusion Extrem General: Yes no clubbing, cyanosis or edema Objective Labs and Meds 06/10/24 06:33 06/10/24 06:33 Lab results: Laboratory Results - last 24 hr 06/09/24 06/09/24 06/09/24 10:54 15:45 17:00 WBC RBC Hgb Hct MCV MCH MCHC RDW Plt Count MPV Absolute Nucleated RBC Nucleated RBC % (auto) Neutrophils % (Manual) Band Neutrophils % Lymphocytes % (Manual) Atypical Lymphs % (Man) Monocytes % (Manual) Metamyelocytes % Abs Neuts (Manual) Lymphocytes # (Manual) Atyp Lymphs # (Manual) Monocytes # (Manual) Metamyelocytes # Toxic Vacuolation Platelet Estimate Large Platelets Plt Morphology Comment RBC Morphology Polychromasia Target Cells [place] Cells Acanthocytes (Spur) Schistocytes PT INR O2 Saturation ABG pH at Pt Temp ABG pCO2 at Pt Temp ABG pO2 at Pt Temp ABG HCO3 ABG Base Excess (Actual) VBG pH VBG pCO2 VBG pO2 VBG HCO3 VBG O2 Saturation VBG Base Excess Sodium Potassium Chloride Carbon Dioxide Anion Gap BUN Creatinine Estim Creat Clear Calc Estimated GFR POC Glucose 156 H 179 H Random Glucose Lactic Acid Lactic Acid F/U @ 2Hr Calcium Total Bilirubin Direct Bilirubin AST ALT Alkaline Phosphatase Total Protein Albumin Beta-Hydroxybutyrate TSH Urine Color Dark Yellow Urine Appearance Cloudy Urine pH 5.0 Ur Specific [place] 1.015 Urine Protein 100 (2+) H Urine Glucose (UA) Negative Urine Ketones Trace Urine Blood Large (3+) H Urine Nitrite Negative Ur Leukocyte Esterase Moderate (2+) H Urine RBC 11-20 H Urine WBC 6-10 Ur Squamous Epith Cells 3-5 Urine Bacteria Trace Hyaline Casts 0-2 U Random Total Protein 144 H Ur Random Sodium 31.0 Urine Creatinine 72.80 Random Vancomycin 06/09/24 06/10/24 06/10/24 20:36 06:33 07:22 WBC 14.3 H RBC 4.44 L Hgb 11.0 L Hct 36.9 L MCV 83.1 MCH 24.8 L MCHC 29.8 L RDW 22.9 H Plt Count 110 L MPV Not Reportable Absolute Nucleated RBC 0.060 H Nucleated RBC % (auto) 0.4 H Neutrophils % (Manual) 86 H Band Neutrophils % 5 Lymphocytes % (Manual) 2 L Atypical Lymphs % (Man) 3 Monocytes % (Manual) 3 Metamyelocytes % 1 Abs Neuts (Manual) 13.0 H Lymphocytes # (Manual) 0.3 L Atyp Lymphs # (Manual) 0.4 Monocytes # (Manual) 0.4 Metamyelocytes # 0.1 Toxic Vacuolation PRESENT Platelet Estimate DECREASED Large Platelets PRESENT Plt Morphology Comment NOTED RBC Morphology NOTED Polychromasia 2+ (3-5) Target Cells 1+ (5-14) William Cells 3+ (>5) Acanthocytes (Spur) 3+ (>5) Schistocytes 2+ (3-5) PT INR O2 Saturation ABG pH at Pt Temp ABG pCO2 at Pt Temp ABG pO2 at Pt Temp ABG HCO3 ABG Base Excess (Actual) VBG pH VBG pCO2 VBG pO2 VBG HCO3 VBG O2 Saturation VBG Base Excess Sodium 140 Potassium 6.1 H* Chloride 101 Carbon Dioxide 11 L Anion Gap 34 H BUN 88 H Creatinine 3.78 H Estim Creat Clear Calc 17.1 Estimated GFR 16 POC Glucose 162 H 138 H Random Glucose 121 H Lactic Acid 10.0 H* Lactic Acid F/U @ 2Hr Calcium 9.3 Total Bilirubin 3.9 H Direct Bilirubin 2.8 H AST 2907 H ALT 925 H Alkaline Phosphatase 119 H Total Protein 7.7 Albumin 3.7 Beta-Hydroxybutyrate 0.97 H TSH 0.46 Urine Color Urine Appearance Urine pH Ur Specific [place] Urine Protein Urine Glucose (UA) Urine Ketones Urine Blood Urine Nitrite Ur Leukocyte Esterase Urine RBC Urine WBC Ur Squamous Epith Cells Urine Bacteria Hyaline Casts U Random Total Protein Ur Random Sodium Urine Creatinine Random Vancomycin 06/10/24 06/10/24 06/10/24 07:32 07:47 08:02 WBC RBC Hgb Hct MCV MCH MCHC RDW Plt Count MPV Absolute Nucleated RBC Nucleated RBC % (auto) Neutrophils % (Manual) Band Neutrophils % Lymphocytes % (Manual) Atypical Lymphs % (Man) Monocytes % (Manual) Metamyelocytes % Abs Neuts (Manual) Lymphocytes # (Manual) Atyp Lymphs # (Manual) Monocytes # (Manual) Metamyelocytes # Toxic Vacuolation Platelet Estimate Large Platelets Plt Morphology Comment RBC Morphology Polychromasia Target Cells [place] Cells Acanthocytes (Spur) Schistocytes PT 42.3 H INR 3.6 H O2 Saturation 94.0 ABG pH at Pt Temp 7.36 ABG pCO2 at Pt Temp 21 L ABG pO2 at Pt Temp 83 ABG HCO3 12 L ABG Base Excess (Actual) -11.1 VBG pH 7.30 L VBG pCO2 28 VBG pO2 45 VBG HCO3 14 L VBG O2 Saturation 66.0 VBG Base Excess -10.6 Sodium Potassium Chloride Carbon Dioxide Anion Gap BUN Creatinine Estim Creat Clear Calc Estimated GFR POC Glucose Random Glucose Lactic Acid Lactic Acid F/U @ 2Hr Calcium Total Bilirubin Direct Bilirubin AST ALT Alkaline Phosphatase Total Protein Albumin Beta-Hydroxybutyrate TSH Urine Color Urine Appearance Urine pH Ur Specific [place] Urine Protein Urine Glucose (UA) Urine Ketones Urine Blood Urine Nitrite Ur Leukocyte Esterase Urine RBC Urine WBC Ur Squamous Epith Cells Urine Bacteria Hyaline Casts U Random Total Protein Ur Random Sodium Urine Creatinine Random Vancomycin 06/10/24 06/10/24 08:08 09:06 WBC RBC Hgb Hct MCV MCH MCHC RDW Plt Count MPV Absolute Nucleated RBC Nucleated RBC % (auto) Neutrophils % (Manual) Band Neutrophils % Lymphocytes % (Manual) Atypical Lymphs % (Man) Monocytes % (Manual) Metamyelocytes % Abs Neuts (Manual) Lymphocytes # (Manual) Atyp Lymphs # (Manual) Monocytes # (Manual) Metamyelocytes # Toxic Vacuolation Platelet Estimate Large Platelets Plt Morphology Comment RBC Morphology Polychromasia Target Cells [place] Cells Acanthocytes (Spur) Schistocytes PT INR O2 Saturation ABG pH at Pt Temp ABG pCO2 at Pt Temp ABG pO2 at Pt Temp ABG HCO3 ABG Base Excess (Actual) VBG pH VBG pCO2 VBG pO2 VBG HCO3 VBG O2 Saturation VBG Base Excess Sodium Potassium Chloride Carbon Dioxide Anion Gap BUN Creatinine Estim Creat Clear Calc Estimated GFR POC Glucose Random Glucose Lactic Acid Lactic Acid F/U @ 2Hr 9.0 H* Calcium Total Bilirubin Direct Bilirubin AST ALT Alkaline Phosphatase Total Protein Albumin Beta-Hydroxybutyrate TSH Urine Color Urine Appearance Urine pH Ur Specific [place] Urine Protein Urine Glucose (UA) Urine Ketones Urine Blood Urine Nitrite Ur Leukocyte Esterase Urine RBC Urine WBC Ur Squamous Epith Cells Urine Bacteria Hyaline Casts U Random Total Protein Ur Random Sodium Urine Creatinine Random Vancomycin 20.4 H Imaging Radiologist's impression: Impressions Chest X-Ray 06/10/24 08:00 IMPRESSION: 1. Cardiomegaly. No interstitial edema is evident. 2. Left base opacity, possibly atelectasis versus pneumonia. Small left effusion seen. 3. Right lung appears clear. 4. The right effusion seen on CT is not well appreciated on this AP portable exam. Electronically signed by: Tony Michele MD 06/10/2024 08:51 AM [facility] [place] Progress Note: A&P Assessment and plan (1) Atrial fibrillation with RVR: Status: Acute Assessment and Plan: Atrial fibrillation rapid ventricular response in the elderly gentleman appears to be secondary to his underlying significant medical issues of unclear etiology most likely appears to be sepsis syndrome with markedly elevated LFTs, worsening renal function, thrombocytopenia suggestive of possible DIC with bacteremia of unclear source. Atrial fibrillation in the setting of poor LV systolic function. Clinically obviously not having any symptoms. I would continue amiodarone drip as there are minimal options in his case given his LV systolic dysfunction worsening renal function. Will also increase metoprolol frequent in-situ q.3 hours [id number] to try to control his heart rate although it appears to be in response to his underlying severe medical issues. Overall prognosis is grim. Discussed with the daughter at bedside. Discussed the case with hospitalist. (2) Left ventricular systolic dysfunction (LVSD): Status: Acute Assessment and Plan: Severe LV systolic dysfunction but without overt heart failure despite significantly rapid heart rate. By echocardiogram the right atrial pressures seem to be elevated but given that he has no other clinical evidence of heart failure would avoid any significant diuresis at this point time and does that may make him hemodynamically unstable. I will also avoid giving him a lot of fluid as this would push him into congestive heart failure. Very difficult clinical situation at this point in time. Continue metoprolol for rate control as above. All other medications are on hold. Continue aggressive treatment of sepsis as well as acidosis. Cause of acidosis maybe metformin related. Will continue to follow with you Time Spent With Patient Time: Total time managing care of this patient today ____ minutes. Progress Note: Quality Stroke Does the patient have a stroke diagnosis?: No Procedures Date of Service Date of Service: 06/10/24
--- NOTE | 2024-06-10 10:24 | MHC.CLN ---
PT WITH INCREASED NUTRITION RISK R/T PRESSURE INJURY PT IS CURRENTLY NPO PENDING SWALLOW EVAL PATIENT ACCOUNTS COORDINATOR FOLLOWING FOR APPROPRIATE DIET CONSISTENCY WHEN DIET TO ADVANCE; RECOMMEND 2200DM 2GM NA DIET ALONG WITH PATIENT ACCOUNTS COORDINATOR RECOMMENDATIONS IN ADDITION, RECOMMEND ADDING ENSURE MAX BID TO PROMOTE WOUND HEALING SUPP TO PROVIDE 300KCALS, 60G PROTEIN MONITOR PO INTAKE AND ENCOURAGE SUPPLEMENTS SEE ALSO FULL CLINICAL NUTRITION ASSESSMENT
--- NOTE | 2024-06-10 10:53 | P.PNIM_ITS ---
Subjective Subjective Date of Service: 06/10/24 Interval History: Pt seen/examined, overnight events reviewed. Patient has continued to be very confused with perioids of agitation overnight, lactic acid is increased to 10, bicab 11 and LFTS trending up suggestive of acute liver ischmia, potassium is 6, and remains tachycardic despite amiodarone drip. He is unable to take oral medication. He has become increasingly more unreposnsive Physical Exam 2 Vital Signs: Vital Signs: Last Vital Signs Temp 98.4 F 06/10/24 08:00 Pulse 116 H 06/10/24 08:11 Resp 18 06/10/24 08:11 BP 128/65 06/10/24 08:00 Pulse Ox 94 06/10/24 08:00 O2 Del Method Room Air 06/10/24 08:00 BMI result Body Mass Index 24.0 Const: Other: General:minimally responsive, Resp: good air movmemtnt, occasional apnea CVS: S1,S2,RRR GI: +BS, NT, no distention Skin: No rash Neuro: motor grossly intact Psych: appropriate affect Objective Data Active Medications Albuterol/Ipratropium (Albuterol/Iprat 2.5/0.5mg 3 Ml Ampul.Neb) 3 ml INHALE RQ4H WHILE AWAKE [facility] Last Admin: 06/10/24 07:32 Dose: 3 ml Documented By: MELITA Apixaban (Apixaban 5 Mg Tablet) 5 mg PO BID [facility] Last Admin: 06/10/24 10:26 Dose: Not Given Documented By: SONIDO Non-Admin Reason: NPO Atorvastatin Calcium (Atorvastatin Calcium 20 Mg Tablet) 20 mg PO BEDTIME [facility] Last Admin: 06/09/24 21:12 Dose: Not Given Documented By: JORGITO Non-Admin Reason: NPO Bisacodyl (Bisacodyl 10 Mg Supp.Rect) 10 mg KS DAILY PRN PRN Reason: Constipation Calcium Carbonate (Calcium Carbonate 750 Mg Tab.Chew) 750 mg PO Q4H PRN PRN Reason: Heartburn Ceftriaxone Sodium (Ceftriaxone Sodium 2 Gm Vial) 2 gm IVPUSH Q24H [facility] Last Admin: 06/10/24 06:07 Dose: 2 gm Documented By: JORGITO Finasteride (Finasteride 5 Mg Tablet) 5 mg PO DAILY [facility] Last Admin: 06/10/24 10:26 Dose: Not Given Documented By: SONIDO Non-Admin Reason: NPO Glucose (Glucose Gel 15 Gm Gel..Gram.) 15 gm PO Q15M PRN; Protocol PRN Reason: per Hypoglycemia Standing Ord. Hydromorphone HCl (Hydromorphone Hcl 0.5 Mg/0.5 Ml Syringe) 0.25 mg IVPUSH Q4H PRN; Protocol PRN Reason: Pain, Severe (Pain Scale 7-10) Last Admin: 06/10/24 08:43 Dose: 0.25 mg Documented By: SONIDO Dextrose (D10) 250 mls @ 750 mls/hr IV Q15M PRN; Protocol PRN Reason: per Hypoglycemia Standing Ord. Amiodarone HCl 900 mg/ Sodium (Chloride) 518 mls @ 34.533 mls/hr IVCONT .Q15H1M [facility]; Protocol Last Admin: 06/10/24 00:35 Dose: Not Given Documented By: JORGITO Non-Admin Reason: bag full Sodium Bicarbonate 150 meq/ (Dextrose) 1,000 mls @ 50 mls/hr IV .Q20H [facility] Last Infusion: 06/10/24 09:44 Dose: 50 mls/hr Documented By: SONIDO Vancomycin HCl 500 mg/ Sodium (Chloride) 110 mls @ 110 mls/hr IV Q24H IAN Dextrose (D10) 250 mls @ 750 mls/hr IV Q15M PRN PRN Reason: per Hypoglycemia Standing Ord. Insulin Human Lispro (Insulin Lispro 100 Unit/Ml 3 Ml Vial) 0 unit SUBCUT QIDACHS [facility]; Protocol Last Admin: 06/10/24 07:36 Dose: Not Given Documented By: SONIDO Non-Admin Reason: No Insulin Coverage Lorazepam (Lorazepam 2 Mg/Ml Vial) 0.25 mg IVPUSH Q4H PRN PRN Reason: agitation Last Admin: 06/10/24 09:33 Dose: 0.25 mg Documented By: SONIDO Magnesium Hydroxide (Milk Of Magnesia 30 Ml Oral.Susp) 30 ml PO DAILY PRN PRN Reason: Constipation Melatonin (Melatonin 3 Mg Tablet) 6 mg PO BEDTIME PRN PRN Reason: Insomnia Metoprolol Tartrate (Metoprolol Tartrate 50 Mg Tablet) 50 mg PO BID [facility]; Protocol Last Admin: 06/10/24 10:26 Dose: Not Given Documented By: SONIDO Non-Admin Reason: NPO Metoprolol Tartrate (Metoprolol Tartrate 5 Mg/5 Ml Vial) 5 mg IVPUSH Q6H PRN; Protocol PRN Reason: hr> 100 Last Admin: 06/10/24 08:50 Dose: 5 mg Documented By: SONIDO Ondansetron HCl (Ondansetron Hcl 4 Mg/2 Ml Vial) 4 mg IVPUSH Q8H PRN PRN Reason: Nausea and Vomiting Pantoprazole Sodium (Pantoprazole Sodium 20 Mg Tablet.Dr) 40 mg PO DAILY@0630 [facility] Pharmacy Consult (Consult Rx Vancomycin Dosing) 1 each MISCELLANE DAILY PRN PRN Reason: Consult order Ropinirole HCl (Ropinirole Hcl 0.25 Mg Tablet) 0.25 mg PO BEDTIME [facility] Last Admin: 06/09/24 21:12 Dose: Not Given Documented By: JORGITO Non-Admin Reason: NPO Sodium Chloride (0.9 % Sodium Chloride Flush 3 Ml Syringe) 3 ml IVFLUSH QSHIFT [facility] Last Admin: 06/10/24 08:37 Dose: Not Given Documented By: SONIDO Non-Admin Reason: IV Running Tamsulosin HCl (Tamsulosin Hcl 0.4 Mg Capsule) 0.8 mg PO BEDTIME [facility] Last Admin: 06/09/24 21:19 Dose: Not Given Documented By: JORGITO Non-Admin Reason: NPO Triamcinolone Acetonide (Triamcinolone Acetonide 40 Mg/Ml Vial) 40 mg IM DAILY [facility] Last Admin: 06/09/24 09:04 Dose: Not Given Documented By: KANWAL Non-Admin Reason: See Note Labs 06/10/24 06:33 06/10/24 06:33 Labs: Laboratory Results - last 24 hr 06/09/24 06/09/24 06/09/24 10:54 15:45 17:00 MCV MCH MCHC RDW Plt Count MPV Absolute Nucleated RBC Nucleated RBC % (auto) Neutrophils % (Manual) Band Neutrophils % Lymphocytes % (Manual) Atypical Lymphs % (Man) Monocytes % (Manual) Metamyelocytes % Abs Neuts (Manual) Lymphocytes # (Manual) Atyp Lymphs # (Manual) Monocytes # (Manual) Metamyelocytes # Toxic Vacuolation Platelet Estimate Large Platelets Plt Morphology Comment RBC Morphology Polychromasia Target Cells [place] Cells Acanthocytes (Spur) Schistocytes PT INR O2 Saturation ABG pH at Pt Temp ABG pCO2 at Pt Temp ABG pO2 at Pt Temp ABG HCO3 ABG Base Excess (Actual) VBG pH VBG pCO2 VBG pO2 VBG HCO3 VBG O2 Saturation VBG Base Excess Anion Gap Estim Creat Clear Calc Estimated GFR POC Glucose 156 H 179 H Random Glucose Lactic Acid Lactic Acid F/U @ 2Hr Calcium Total Bilirubin Direct Bilirubin AST ALT Alkaline Phosphatase Total Protein Albumin Beta-Hydroxybutyrate TSH Urine Color Dark Yellow Urine Appearance Cloudy Urine pH 5.0 Ur Specific [place] 1.015 Urine Protein 100 (2+) H Urine Glucose (UA) Negative Urine Ketones Trace Urine Blood Large (3+) H Urine Nitrite Negative Ur Leukocyte Esterase Moderate (2+) H Urine RBC 11-20 H Urine WBC 6-10 Ur Squamous Epith Cells 3-5 Urine Bacteria Trace Hyaline Casts 0-2 U Random Total Protein 144 H Ur Random Sodium 31.0 Urine Creatinine 72.80 Random Vancomycin 06/09/24 06/10/24 06/10/24 20:36 06:33 07:22 MCV 83.1 MCH 24.8 L MCHC 29.8 L RDW 22.9 H Plt Count 110 L MPV Not Reportable Absolute Nucleated RBC 0.060 H Nucleated RBC % (auto) 0.4 H Neutrophils % (Manual) 86 H Band Neutrophils % 5 Lymphocytes % (Manual) 2 L Atypical Lymphs % (Man) 3 Monocytes % (Manual) 3 Metamyelocytes % 1 Abs Neuts (Manual) 13.0 H Lymphocytes # (Manual) 0.3 L Atyp Lymphs # (Manual) 0.4 Monocytes # (Manual) 0.4 Metamyelocytes # 0.1 Toxic Vacuolation PRESENT Platelet Estimate DECREASED Large Platelets PRESENT Plt Morphology Comment NOTED RBC Morphology NOTED Polychromasia 2+ (3-5) Target Cells 1+ (5-14) William Cells 3+ (>5) Acanthocytes (Spur) 3+ (>5) Schistocytes 2+ (3-5) PT INR O2 Saturation ABG pH at Pt Temp ABG pCO2 at Pt Temp ABG pO2 at Pt Temp ABG HCO3 ABG Base Excess (Actual) VBG pH VBG pCO2 VBG pO2 VBG HCO3 VBG O2 Saturation VBG Base Excess Anion Gap 34 H Estim Creat Clear Calc 17.1 Estimated GFR 16 POC Glucose 162 H 138 H Random Glucose 121 H Lactic Acid 10.0 H* Lactic Acid F/U @ 2Hr Calcium 9.3 Total Bilirubin 3.9 H Direct Bilirubin 2.8 H AST 2907 H ALT 925 H Alkaline Phosphatase 119 H Total Protein 7.7 Albumin 3.7 Beta-Hydroxybutyrate 0.97 H TSH 0.46 Urine Color Urine Appearance Urine pH Ur Specific [place] Urine Protein Urine Glucose (UA) Urine Ketones Urine Blood Urine Nitrite Ur Leukocyte Esterase Urine RBC Urine WBC Ur Squamous Epith Cells Urine Bacteria Hyaline Casts U Random Total Protein Ur Random Sodium Urine Creatinine Random Vancomycin 06/10/24 06/10/24 06/10/24 07:32 07:47 08:02 MCV MCH MCHC RDW Plt Count MPV Absolute Nucleated RBC Nucleated RBC % (auto) Neutrophils % (Manual) Band Neutrophils % Lymphocytes % (Manual) Atypical Lymphs % (Man) Monocytes % (Manual) Metamyelocytes % Abs Neuts (Manual) Lymphocytes # (Manual) Atyp Lymphs # (Manual) Monocytes # (Manual) Metamyelocytes # Toxic Vacuolation Platelet Estimate Large Platelets Plt Morphology Comment RBC Morphology Polychromasia Target Cells William Cells Acanthocytes (Spur) Schistocytes PT 42.3 H INR 3.6 H O2 Saturation 94.0 ABG pH at Pt Temp 7.36 ABG pCO2 at Pt Temp 21 L ABG pO2 at Pt Temp 83 ABG HCO3 12 L ABG Base Excess (Actual) -11.1 VBG pH 7.30 L VBG pCO2 28 VBG pO2 45 VBG HCO3 14 L VBG O2 Saturation 66.0 VBG Base Excess -10.6 Anion Gap Estim Creat Clear Calc Estimated GFR POC Glucose Random Glucose Lactic Acid Lactic Acid F/U @ 2Hr Calcium Total Bilirubin Direct Bilirubin AST ALT Alkaline Phosphatase Total Protein Albumin Beta-Hydroxybutyrate TSH Urine Color Urine Appearance Urine pH Ur Specific [place] Urine Protein Urine Glucose (UA) Urine Ketones Urine Blood Urine Nitrite Ur Leukocyte Esterase Urine RBC Urine WBC Ur Squamous Epith Cells Urine Bacteria Hyaline Casts U Random Total Protein Ur Random Sodium Urine Creatinine Random Vancomycin 06/10/24 06/10/24 08:08 09:06 MCV MCH MCHC RDW Plt Count MPV Absolute Nucleated RBC Nucleated RBC % (auto) Neutrophils % (Manual) Band Neutrophils % Lymphocytes % (Manual) Atypical Lymphs % (Man) Monocytes % (Manual) Metamyelocytes % Abs Neuts (Manual) Lymphocytes # (Manual) Atyp Lymphs # (Manual) Monocytes # (Manual) Metamyelocytes # Toxic Vacuolation Platelet Estimate Large Platelets Plt Morphology Comment RBC Morphology Polychromasia Target Cells [place] Cells Acanthocytes (Spur) Schistocytes PT INR O2 Saturation ABG pH at Pt Temp ABG pCO2 at Pt Temp ABG pO2 at Pt Temp ABG HCO3 ABG Base Excess (Actual) VBG pH VBG pCO2 VBG pO2 VBG HCO3 VBG O2 Saturation VBG Base Excess Anion Gap Estim Creat Clear Calc Estimated GFR POC Glucose Random Glucose Lactic Acid Lactic Acid F/U @ 2Hr 9.0 H* Calcium Total Bilirubin Direct Bilirubin AST ALT Alkaline Phosphatase Total Protein Albumin Beta-Hydroxybutyrate TSH Urine Color Urine Appearance Urine pH Ur Specific [place] Urine Protein Urine Glucose (UA) Urine Ketones Urine Blood Urine Nitrite Ur Leukocyte Esterase Urine RBC Urine WBC Ur Squamous Epith Cells Urine Bacteria Hyaline Casts U Random Total Protein Ur Random Sodium Urine Creatinine Random Vancomycin 20.4 H Microbiology Microbiology Results: Microbiology 06/07/24 17:26 Blood Culture - Preliminary Blood - Venous Enterococcus/Streptococcus sp 06/09/24 05:18 Blood Culture - Preliminary Blood - Venous No growth after 24 hours. 06/09/24 05:18 Blood Culture - Preliminary Blood - Venous No growth after 24 hours. 06/07/24 16:17 Blood Culture - Preliminary Blood - Venous No growth after 48 hours. 06/07/24 Unknown Urine Culture - Final Urine clean catch - Clean Catch Midstream Assessment and Plan (1) Congestive heart failure: Status: Acute Plan 78M PMH chronic systolic CHF with an EF of 20-25%, diabetes, hypertension, hyperlipidemia, pulmonary hypertension, CKD 3, paroxysmal AFib, COPD presented with shortness of breath and confusion and now has multi organ system failure Neuro: AMS/unresponsive, multifactorial (encephalopathy from seppsis, liver failure and other) - check ammonia level avoid meds that will make it worse Card.. AFIB with RVR -on amio and IV metoprolol 5 q 3 -Chronic heart failure with markedly reduced EF, fluid status difficult to gauge pulm COPD, stable, inhalers PRN GI--acute liver failure, suspect ischemic with rapidly worsening LFTS -poor prognosis, stop lipitor, monitor lfts, check ammonia Heme -elevated INR d/t sepsis, liver failure and eliquis -consider vit K if trending up Nephro: BLUE on CKD, suspect ATN with ppor chance of renal frecovery. -Nephrology recommending urgent dialysis, family agreable -Requesting Temp cath by IR -Hyperkalemia, given dextrose, inlsulin, could not libby lokelma, ultimately may need dialysis -bicab replacement for severe metabolic acidosis Lactic acidosis--likely combination of sepsis, liver failure and prior metformin use Endo, diabetes -no metformin -ssi prn -preseently NPO ID--severe sepsis, source unclear has Entero/steptococcus bacteremia -on Vanco, level is supratherapeutic DVT prophylaxis on Eliquis DNR/DNI-poor prognosis, d/w son over phone multiple time, and daughter at bedside, they are leaning toward possible concrete bucket unloader but they would like to discus with the rest of family In light of patient's worsening status, and potential need for dialysis and family haven't yet reached SPRAY DRIER OPERATOR status, he will be moved to icu--discussed with raw sampler, package center supervisor and freight broker. Temp catheter requested through IR but he's not stable to go down Quality Stroke Does the patient have a stroke diagnosis?: No VTE Prior VTE?: No VTE Risk Level:: Medical - moderate - high VTE Device Contraindication: Treatment Not Indicated VTE Drug Contraindication: N/A - Med Ordered
[2024-06-10] MEDS: vancomycin HCL 500 MG in 0.9 % Sodium Chloride 100 ML 110 MG IV (10:59)
--- NOTE | 2024-06-10 10:59 | MHC.SLORD ---
Speech Language Pathology Order Status: Patient obtunded, sleeping with open mouth posture and not waking to sternal rub. TRUCK CLEANER not able to administer PO trials d/t unresponsiveness. Patient continues NPO. Plan to re-attempt exam tomorrow a.m., RN to contact TRUCK CLEANER via [employer] secure text or ext. [phone] if patient awakes before then.
[2024-06-10 11:10] LABS: Reflex Lactate? 2 Y
[2024-06-10 11:19] LABS: Glucose, Whole Blood 129 mg/dL (60-115)
[2024-06-10 12:07] LABS: ~Lactic Acid-LAB USE ONLY 7.8 mmol/L (0.5-2.0)
[2024-06-10] MEDS: Sodium Bicarbonate 8.4% 50 MEQ/50 ML SYRINGE IVPUSH (12:10)
[2024-06-10 12:39] LABS: Cancel Lactic Acid Canceled
[2024-06-10 12:46] LABS: Ammonia 62 umol/L (13-55)
--- NOTE | 2024-06-10 13:19 | W.MHC.ACPN ---
Advanced Care Planning Note Advanced Care Planning Note Time spent (in minutes): 35 Narrative: After multiple discussions with the family regarding the patient?s poor prognosis due to sepsis with multi-organ system failure, the family has decided to proceed with comfort care measures only. RNs Linette Menon and Juan Jose Elena were present during these conversations. All medications, except those for comfort, will be discontinued, and all interventions will be ceased. Problems Discussed (1) Congestive heart failure:
--- NOTE | 2024-06-10 13:29 | PC.NURSE ---
Upon initial assessment at 0700 pt restless, pulling off neb mask, fidgeting with IVs. Speech garbled able to state [facility] and his birthday. Dr. Garcia at bedside during assessment. Pt with critical labs this AM Lactic 10.0 and K 6.1. Amio drip running but HR sustaining 130-160. IVP metoprolol given with no effect. Pt still very restless, IVP ativan and dilaudid given ~0930 with little result. At ~1130 phlebotomy called nursing in to assess pt who was intermittently agonal breathing, not responding to sternal rub. Hospitalist, cardiology and auto service instructor all assessed pt. Spoke at length with pts 5 children and and ultimately given prognosis they decided too transition to comfort measures only.
[2024-06-10] MEDS: Scopolamine 1.5 MG PATCH.TD.3 TRANSDERMA (15:27)
[2024-06-10] MEDS: Morphine Sulfate 2 MG/ML CARTRIDGE IVPUSH (17:07)
[2024-06-10] MEDS: Lactated Ringers 500 ML 50 ML IV (20:02)
[2024-06-11] MEDS: Morphine Sulfate 2 MG/ML CARTRIDGE IVPUSH ×2 (02:16→11:03)
--- NOTE | 2024-06-11 03:57 | PC.NURSE ---
CARE ASSUNED 7PM..PATIENT SOMNOLENT..WEAKLY MOVES EXTREMETIES BUT NOT TO COMMAND..NON-VERBAL..FAMILY AT BEDSIDE...SON UPSET THAT IV FLUIDS AND ANTIBIOTICS PREVIOUSLY D/C'D...REVIEWED DNR/DNI AND COMFORT MEASURES STATUS,,,SON ADAMANT HE SHOULD AT LEAST GET FLUIDS SO HE DOESN'T GET DEHYDRATED ...DAILY ANTIBIOTICS PREVIOUSLY RECEIVED 06/10 AM...HOSPITALIST UPDATED R/T SON'S REQUEST..GENTLE HYDRATION ORDERED BY ...LR 50 CC/HR X1 500ml ORDERED... AND CHILDREN AT BEDSIDE OVERNIGHT...PRN MORPHINE GIVEN PER JUL FOR WORK OF BREATHING AND COMFORT
[2024-06-11] MEDS: LORazepam 2 MG/ML VIAL 0.5 MG IVPUSH (08:44)
--- NOTE | 2024-06-11 09:32 | HO.PM.IMPN ---
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 Family at bedside Physical Exam Vital Signs: Vital Signs: Last Vital Signs Temp 98.3 F 06/10/24 11:23 Pulse 117 H 06/10/24 11:36 Resp 16 06/10/24 11:36 BP 134/65 06/10/24 11:23 Pulse Ox 98 06/10/24 11:23 O2 Del Method Room Air 06/10/24 11:23 BMI result Body Mass Index 24.0 Const: Other: unresponsive, figety Objective Data Active Medications Acetaminophen (Acetaminophen 325 Mg Tablet) 650 mg PO Q4H PRN PRN Reason: Fever >/= 100, Pain, mild 1-3 Lorazepam (Lorazepam 2 Mg/Ml Vial) 0.5 mg IVPUSH Q4H PRN PRN Reason: Myoclonic twitching/anxiety Last Admin: 06/11/24 08:44 Dose: 0.5 mg Documented By: NEY Morphine Sulfate (Morphine Sulfate 2 Mg/Ml Cartridge) 2 mg IVPUSH Q1H PRN PRN Reason: Pain, Severe (7-10)/ RR>/=24 Last Admin: 06/11/24 02:16 Dose: 2 mg Documented By: KWABENA Ondansetron HCl (Ondansetron Odt 4 Mg Tab.Rapdis) 4 mg TRANSLINGU Q8H PRN PRN Reason: Nausea and Vomiting Scopolamine (Scopolamine 1.5 Mg Patch.Td.3) 1.5 mg TRANSDERMA Q72H IAN Last Admin: 06/10/24 15:27 Dose: 1.5 mg Documented By: REECE Labs 06/10/24 06:33 06/10/24 06:33 Labs: Laboratory Results - last 24 hr 06/10/24 06/10/24 06/10/24 09:06 11:15 11:21 POC Glucose 129 H Lactic Acid F/U @ 2Hr 9.0 H* Lactic Acid F/U @ 4Hr 7.8 H* Ammonia 06/10/24 12:27 POC Glucose Lactic Acid F/U @ 2Hr Lactic Acid F/U @ 4Hr Ammonia 62 H Microbiology Microbiology Results: Microbiology 06/09/24 05:18 Blood Culture - Preliminary Blood - Venous No growth after 48 hours. 06/09/24 05:18 Blood Culture - Preliminary Blood - Venous No growth after 48 hours. 06/07/24 17:26 Blood Culture - Preliminary Blood - Venous Enterococcus/Streptococcus sp Assessment and Plan (1) Congestive heart failure: Status: Acute Plan 78M PMH chronic systolic CHF with an EF of 20-25%, diabetes, hypertension, hyperlipidemia, pulmonary hypertension, CKD 3, paroxysmal AFib, COPD presented with shortness of breath and confusion and now has multi organ system failure-Progresive kidny failure with hyperkalemia, liver failure, dic, heart failure, severe lactic acidosis, sepsis/bactereamia, encephalopathy, coagulopathy state.. 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 Scopolamine patch for congestion. Quality Stroke Does the patient have a stroke diagnosis?: No VTE Prior VTE?: No VTE Risk Level:: Medical - moderate - high VTE Device Contraindication: Treatment Not Indicated VTE Drug Contraindication: N/A - Med Ordered
--- NOTE | 2024-06-11 10:45 | MHC.CM.PN ---
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
--- NOTE | 2024-06-11 11:38 | MHC.CLN ---
F/U PT WITH INCREASED NUTRITION RISK R/T PRESSURE INJURY PT IS NOW TECHNOLOGY OFFICER CHANGED DIET TO FEED FROM FLOOR R/T TECHNOLOGY OFFICER KITCHEN TO PROVIDE COFFEE CART FOR FAMILY-KITCHEN NOTIFIED AND AWARE WILL D/C ENSURE MAX BID TO PROMOTE WOUND HEALING R/T TECHNOLOGY OFFICER FOLLOWING WITH TEAM AND WILL PROVIDE SUPPORT NEEDED
[2024-06-11 11:58] VITALS: BP 138/94; PULSE 145; RESP 12; TEMP 37.2; O2SAT 97
--- NOTE | 2024-06-11 12:22 | PM.EVENT ---
Event Note Date of Service: 06/11/24 Event Note: The family is now expressing that they did not fully understand that comfort measures only (TRAINING DEVELOPMENT SPECIALIST) excluded IV fluids, medications, and antibiotics. They are also stating that they did not comprehend the implications of the DNR status. The family is requesting to reverse the prior decisions, opting instead for full medical intervention, including IV fluids, antibiotics, nutrition, testing,m potential ICU transfer, dialysis, and all other necessary treatments. Requesting labs, IVF, check random vanco level , labs, and reconsult nephrology and perhaps, cardiology, as well as ICU. An attempt to put in NGT for meds was unsucesful, IR doesn't he's stable for line in IR suite. I had another discussion with family and they still insist on full care, Vanco level is supratherapeutic to cover enteroccus. Bicab drip started at 80 per Nephro recommendation, IV metoprolol ordered for AFIB with RVR Time Spent With Patient Time: Total time managing care of this patient today ____ minutes.
[2024-06-11 12:28] LABS: Anti Glomerular Basement Memb <1.0 AI; Myeloperoxidase Antibody <1.0 AI; Proteinase 3 PR3 Antibodies <1.0 AI
[2024-06-11 12:51] LABS: Hematocrit 35.1 % (42.0-52.0); Hemoglobin 11.4 g/dl (14.0-18.0); Mean Corpuscular HGB Conc 32.5 g/dl (31.0-36.0); Mean Corpuscular Hemoglobin 24.7 pg (27.0-33.0); NRBC Pct Auto 0.8 /100WBC (0.0-0.2); Platelet Count 104 X10*3/uL (160-400); Red Blood Count 4.62 X10*6/uL (4.60-5.80); Red Cell Distribution Width 22.7 % (11.0-16.0); White Blood Count 12.6 X10*3/uL (4.8-10.8)
[2024-06-11 12:57] LABS: Venous Blood Gas Refer to POC result
[2024-06-11 12:58] LABS: VBG Base Excess -3.7 mmol/L; VBG HCO3 20 mmol/L (22-26); VBG pCO2 31 mmHg; VBG pO2 56 mmHg
[2024-06-11 13:12] LABS: Vancomycin Random 23.4 mcg/mL (15-20)
[2024-06-11 13:16] LABS: Anion Gap 27 (12-20); Blood Urea Nitrogen 112 mg/dL (9-16); Calcium 8.5 mg/dL (8.4-10.2); Carbon Dioxide 17 mmol/L (22-29); Chloride 104 mmol/L (96-108); Creatinine Clr Calc Pharmacy 17.4; Estimated Glomerular Filt Rate 16; Glucose Random 194 mg/dL (60-115); Magnesium 2.3 mg/dL (1.6-2.6); Sodium 142 mmol/L (135-145)
[2024-06-11 13:21] LABS: Potassium 6.2 mmol/L (3.3-5.1)
[2024-06-11 13:22] LABS: Lactic Acid 4.5 mmol/L (0.5-2.0)
[2024-06-11] MEDS: Metoprolol Tartrate 5 MG/5 ML VIAL IVPUSH (13:38)
[2024-06-11] MEDS: Lactated Ringers 1,000 ML 150 ML IVCONT (13:38)
[2024-06-11 13:39] LABS: Cancel Lactic Acid Canceled
[2024-06-11 13:53] LABS: Glucose, Whole Blood 179 mg/dL (60-115)
--- NOTE | 2024-06-11 14:00 | PC.NURSE ---
attempted NGT insertion, pt unable to assist with insertion. pt became apnic after insertion, no air was heard in abd after insertion. NGT removed as it might have entered the lung. blood found on tubing after removal. notified.
[2024-06-11] MEDS: Sodium Bicarbonate 8.4% 150 MEQ in Dextrose 5 % 850 ML 80 MEQ IV (14:15)
[2024-06-11 14:18] LABS: Ammonia 64 umol/L (13-55)
--- NOTE | 2024-06-11 14:39 | MHC.SLORD ---
Speech Language Pathology Order Status: Per MD, family requesting to reverse prior decision of MARKETING TECHNOLOGY COORDINATOR, opting for full medical interventions. BLENDING TANK TENDER re-consulted. Son present at visit, reports patient had no prior history of dysphagia. He says patient was eating regular foods like tuna sandwiches at [facility] [employer], would cough every once in a while if he were eating too quickly. Son reports family gave moistened swabs, which patient sucked on and did not cough. BLENDING TANK TENDER administered moistened swab for oral care/oral stimulation. Patient began sucking on swab, elicited a swallow, and immediately began gasping and coughing. Patient attempting to swallow saliva, laryngeal elevation visualized, patient gurgling, consistently produced wet and gurgly non productive cough when attempting to swallow saliva, not managing secretions. RN attempted to suction oropharynx, unsuccessfully, some blood visualized likely d/t failed attempt to place NGT earlier. No PO trials administered d/t patient's difficulty managing oral secretions, concern for aspiration. This is BLENDING TANK TENDER's 4th attempt to evaluate with no significant change. Recommend continue NPO strict. Notified Dr. Garcia via [employer] secure text.
[2024-06-11 16:08] LABS: Glucose, Whole Blood 180 mg/dL (60-115)
--- NOTE | 2024-06-11 18:18 | P.PNNP_ITS ---
Subjective Subjective Date of Service: 06/11/24 Principal diagnosis: Sepsis, cardiomyopathy, atrial fibrillation. Interval history: Family at bedside ANVIL SEATING PRESS OPERATOR status was reversed. Physical Exam 2 Vital Signs: Vital Signs: Last Vital Signs Temp 98.9 F 06/11/24 11:58 Pulse 145 H 06/11/24 11:58 Resp 12 06/11/24 11:58 BP 138/94 H 06/11/24 11:58 Pulse Ox 97 06/11/24 11:58 O2 Del Method Room Air 06/11/24 11:58 BMI result Body Mass Index 24.0 Const: General: ill appearing Neck: Neck: Yes supple Resp: Auscultation: clear to auscultation bilaterally Cardio: Palpation: no palpable S3 Heart sounds: no rubs GI: Palpation (GI): Soft to palpation Auscultation: normal bowel sounds Neuro: Motor exam (neuro): no asterixis Objective Data Labs 06/11/24 11:36 06/11/24 11:36 Labs: Laboratory Results - last 24 hr 06/10/24 06/11/24 06/11/24 07:32 11:36 12:46 WBC 12.6 H RBC 4.62 Hgb 11.4 L Hct 35.1 L MCV 76.0 L D MCH 24.7 L MCHC 32.5 RDW 22.7 H Plt Count 104 L MPV TNP Absolute Nucleated RBC 0.100 H Nucleated RBC % (auto) 0.8 H VBG pH 7.40 VBG pCO2 31 VBG pO2 56 VBG HCO3 20 L VBG O2 Saturation 82.0 VBG Base Excess -3.7 Sodium 142 Potassium 6.2 H* Chloride 104 Carbon Dioxide 17 L Anion Gap 27 H BUN 112 H Creatinine 3.71 H Estim Creat Clear Calc 17.4 Estimated GFR 16 POC Glucose Random Glucose 194 H Lactic Acid 4.5 H* Calcium 8.5 D Phosphorus 5.0 H Magnesium 2.3 Ammonia Random Vancomycin 23.4 H Proteinase 3 (PR3) Ab <1.0 Myeloperoxidase Ab <1.0 Glomerular Base Memb Ab <1.0 06/11/24 06/11/24 06/11/24 13:47 13:59 15:39 WBC RBC Hgb Hct MCV MCH MCHC RDW Plt Count MPV Absolute Nucleated RBC Nucleated RBC % (auto) VBG pH VBG pCO2 VBG pO2 VBG HCO3 VBG O2 Saturation VBG Base Excess Sodium Potassium Chloride Carbon Dioxide Anion Gap BUN Creatinine Estim Creat Clear Calc Estimated GFR POC Glucose 179 H 180 H Random Glucose Lactic Acid Calcium Phosphorus Magnesium Ammonia 64 H Random Vancomycin Proteinase 3 (PR3) Ab Myeloperoxidase Ab Glomerular Base Memb Ab Microbiology Microbiology Results: Microbiology 06/07/24 17:26 Blood - Venous Blood Culture - Preliminary Enterococcus faecalis 06/09/24 05:18 Blood - Venous Blood Culture - Preliminary No growth after 48 hours. 06/09/24 05:18 Blood - Venous Blood Culture - Preliminary No growth after 48 hours. 06/07/24 16:17 Blood - Venous Blood Culture - Preliminary No growth after 48 hours. 06/07/24 Unknown Urine clean catch - Clean Catch Midstream Urine Culture - Final Procedures Date of Service Date of Service: 06/11/24 Assessment & Plan Assessment and plan (1) Acute kidney injury superimposed on chronic kidney disease: Status: Acute Plan BLUE most likely due to hypoperfusion. Tubular injury can not be ruled out especially from vanco toxicity. No evidence of obstruction. Acute glomerular nephritis/interstitial disease can not be ruled out yet. Recommendation agree with holding diuretics for now. Cautious hydration. Replace bicarb. Watch urine output closely. Loklema to correct hyperkalemia Will reassess for HD based on labs and clinical condition Prognosis poort. Time Spent With Patient Time: Total time managing care of this patient today ____ minutes. Progress Note: Quality Stroke Does the patient have a stroke diagnosis?: No
--- NOTE | 2024-06-11 18:49 | P.DN_ITS ---
Discharge Sum: Prov Provider Primary care physician: Danish Ascencio MD Consults: 06/11/24 11:50 Consult to Nephrology Routine Consulting Provider: [facility] Reason for consultation: BLUE on CKD Has provider been notified: Yes 06/11/24 13:19 Consult to Infectious Diseases Routine Consulting Provider: [facility] Reason for consultation: enterococcus bacteremia Has provider been notified: No 06/11/24 16:29 Consult to [facility] ([facility]) Stat Consulting Provider: [facility] Discharge Sum: Diag Contributing Factors (1) Acute kidney injury superimposed on chronic kidney disease: Discharge Sum: Summary Date and Time Date of admission: 06/08/24 05:16 Date of : 06/11/24 Summary Details: Admission hpi Chief Complaint: SOB, AMS Pt is a 78 yo male with a pmhx significant fordiabetes mellitus, malnutrition, hypertension, hyperlipidemia, pulmonary hypertension, chronic kidney disease stage 3, paroxysmal atrial fibrillation, COPD, muscle wasting with atrophy, depression, systolic congestive heart failure, DNR/DNI sent in by ambulance from his custodial facility [facility] for evaluation increased confusion over 2 days and shortness of breath. He reports SOB and LE edema for quite a while now. + cough with green sputum. no fever, chills, nausea, or vomiting. Also having urinary sx including dysuira, freuqency and urgency. denies and pain, melena, or hemtochezia. He is a difficult historian and unable to determine accuracy of his responses. Hospital course: A 78-year-old male with a past medical history of chronic systolic heart failure (EF 20-25%), diabetes, hypertension, hyperlipidemia, pulmonary hypertension, CKD stage 3, paroxysmal atrial fibrillation, and COPD presented with shortness of breath and confusio. He was found to be in multi-system organ failure secondary to severe sepsis from Enterococcus faecalis bacteremia, leading to: * Acute liver failure (suspected) * Acute kidney injury (BLUE) on CKD, likely from ATN secondary to sepsis * Coagulopathy with possible early disseminated intravascular coagulation (DIC) * Acute lactic acidosis * [id number] heart failure * Atrial fibrillation with rapid ventricular response (AFib with RVR) * Metabolic encephalopathy Despite aggressive treatment with antibiotics, IV fluids, and multidisciplinary management involving nephrology, cardiology, and ICU teams, the patient?s condition continued to deteriorate. He became progressively unresponsive and alireza wed no clinical improvement, with a poor prognosis as assessed by all consulting teams. Goals of Care & Code Status Changes: After multiple discussions with the family, a decision was made on 06/10 to transition to comfort measures only. However, the following day, the family requested to reverse the comfort care order, reinstating full treatment and changing the patient?s status back to Full Code. ICU was reconsulted, and plans were made for ICU admission, placement of a dialysis catheter, and initiation of hemodialysis. Clinical Course & Outcome: Before the patient could be transferred to the ICU, he experienced a cardiac arrest. Despite resuscitation efforts, he did not survive CPR and was pronounced at 15:59.! Cause of Severe sepsis wieth multi-organ system failure Other diagnoses EFeacalis bacteremia Acute lactic acidosis Acute on chronic HFrEF Hyperkalemia Metabolic acidosis AFIB with RVR Other diagnoses: ATN, BLUE on CKD] Metabolic encephalopath Cogulopathy Additional Data Attending physician: Jamaal Garcia MD
--- NOTE | 2024-06-11 19:35 | PC.NURSE ---
1527 family member came to nurses station reporting pt had blood coming from their mouth. This RN and OIL TREATER at bedside, pt was found to be agonally breathing with blood covering pt and spilling out of mouth. picking table worker called to bedside. RR called overhead. pts pulse was lost, code blue called overhead. code team at bedside. see code blue sheet. pt at 1559, son at bedside.
[2024-06-14 11:53] LABS: Prot Elec - Albumin 3.4 g/dL (3.8-4.8); Prot Elec - Alpha1 0.4 g/dL (0.2-0.3); Prot Elec - Alpha2 0.7 g/dL (0.5-0.9); Prot Elec - Beta 1 0.4 g/dL (0.4-0.6); Prot Elec - Beta 2 0.9 g/dL (0.2-0.5); Prot Elec - Total Protein 6.7 g/dL (6.1-8.1)
--- NOTE | 2024-06-14 12:48 | P.CDIM_ITS ---
PROVIDER RESPONSE TEXT: To clarify, the appropriate diagnosis supported by the clinical indicators: Deep tissue injury sacrum: as above QUERY TEXT: PHYSICIAN'S DOCUMENTATION REQUEST Date of Query: 06/11/2024 08:47 AM EST Patient Name: LUKE PORTER Admit Date: 06/08/2024 Dear Jamaal Garcia MD, A review of the medical record indicates additional documentation may be needed. Please review below and update the documentation accordingly. Clinical Indicators: Wound care notes: DTI sacrum, present on arrival. Foam dressing and off load with Q 2hr turns. Based on the above, could you please provide further information regarding the ulcer/wound/injury: Deep tissue injury sacrum Possible, suspected, probable etc. Other etiology of skin integrity Other (explain) Clinically unable to determine (explain) Thank you, Trena Barragan, CCS, CDIS Use of terms such as suspected, likely, concern for, or probable (associated with a specific diagnosi s that is being evaluated, monitored, or treated as if it exists) are acceptable and can be coded in the inpatient se tting, when documented at the time of discharge. Please use your independent medical judgment in providing your response. THIS QUERY IS PART OF THE PERMANENT MEDICAL RECORD
[2024-06-15 18:33] LABS: Complement C3 66 mg/dL (82-185)
== END 2024-06-11 20:04 | disposition expired | DRG 871 ==
LOC: HO.ED 16:32 → HO.EDOVER 06-08 05:36 → HO.IMC 06-09 08:44 → HO.ICU 06-10 12:30 → HO.IMC 06-10 13:17 → HO.ICU 06-11 15:14 → HO.IMC 06-11 16:10
PROVIDERS: Internal Medicine; Internal Medicine Hypertension Specialist; Admitting Provider Student in an Organized Health Care Education/Training Program; Emergency Provider Emergency Medicine Emergency Medical Services; PCP Student in an Organized Health Care Education/Training Program; Visit Provider Internal Medicine
DX: A41.9 Sepsis, unspecified organism (principal); D65 Disseminated intravascular coagulation [defibrination syndrome]; G93.41 Metabolic encephalopathy; I50.23 Acute on chronic systolic (congestive) heart failure; K72.00 Acute and subacute hepatic failure without coma; N17.0 Acute kidney failure with tubular necrosis; I13.0 Hypertensive heart and chronic kidney disease with heart failure and stage 1 through stage 4 chronic kidney disease, or unspecified chronic kidney disease; I42.9 Cardiomyopathy, unspecified; R65.20 Severe sepsis without septic shock; L89.156 Pressure-induced deep tissue damage of sacral region; T36.8X5A Adverse effect of other systemic antibiotics, initial encounter; I48.0 Paroxysmal atrial fibrillation; B95.2 Enterococcus as the cause of diseases classified elsewhere; E87.5 Hyperkalemia; Z51.5 Encounter for palliative care; E78.5 Hyperlipidemia, unspecified; I27.20 Pulmonary hypertension, unspecified; Z66 Do not resuscitate; D63.1 Anemia in chronic kidney disease; J44.9 Chronic obstructive pulmonary disease, unspecified; N18.30 Chronic kidney disease, stage 3 unspecified; E11.22 Type 2 diabetes mellitus with diabetic chronic kidney disease; Z20.822 Contact with and (suspected) exposure to COVID-19; Z87.891 Personal history of nicotine dependence; Z79.01 Long term (current) use of anticoagulants; Z79.899 Other long term (current) drug therapy
CPT/HCPCS: 0241U; 36415; 36600; 70450; 71045; 71250; 74176; 80048; 80053; 80076; 80202; 81001; 82010; 82140; 82550; 82570; 82803; 82947; 83520; 83605; 83690; 83735; 83880; 84100; 84156; 84165; 84300; 84443; 84484; 85007; 85025; 85027; 85610; 85730; 86021; 86160; 87040; 87077; 87086; 87186; 87205; 92610; 93005; 93306; 94799; 99285; C1758; J0131; J0282; J0283; J0456; J0696; J1160; J1171; J1940; J2060; J2270; J3301; J3370; J7120; Q9957

== ENCOUNTER → 2024-06-07 14:44 | Outpatient (BNV) | payer MEDICARE, SELFPAY | PROVIDERS: Admitting Provider Student in an Organized Health Care Education/Training Program; Emergency Provider Emergency Medicine Emergency Medical Services; PCP Student in an Organized Health Care Education/Training Program; Visit Provider Internal Medicine Cardiovascular Disease | DX: R94.31 Abnormal electrocardiogram [ECG] [EKG] (principal) | CPT/HCPCS: 93010 ==

== ENCOUNTER → 2024-06-07 14:44 | Outpatient (BNV) | payer MEDICARE, SELFPAY | PROVIDERS: Emergency Provider Emergency Medicine Emergency Medical Services; PCP Student in an Organized Health Care Education/Training Program; Visit Provider Radiology Diagnostic Radiology | DX: J90 Pleural effusion, not elsewhere classified (principal); R41.82 Altered mental status, unspecified; R53.1 Weakness | CPT/HCPCS: 70450; 71045 ==

== ENCOUNTER 2024-06-08 05:16 | Outpatient (BNV) | payer MEDICARE, SELFPAY | END 2024-06-09 07:00 | PROVIDERS: Admitting Provider Student in an Organized Health Care Education/Training Program; Emergency Provider Emergency Medicine Emergency Medical Services; PCP Student in an Organized Health Care Education/Training Program; Visit Provider Internal Medicine Cardiovascular Disease | DX: I50.9 Heart failure, unspecified (principal); I51.7 Cardiomegaly; I35.1 Nonrheumatic aortic (valve) insufficiency; I36.1 Nonrheumatic tricuspid (valve) insufficiency | CPT/HCPCS: 93306 ==

== ENCOUNTER 2024-06-08 05:16 | Outpatient (BNV) | payer MEDICARE, SELFPAY | END 2024-06-08 14:14 | PROVIDERS: Admitting Provider Student in an Organized Health Care Education/Training Program; Emergency Provider Emergency Medicine Emergency Medical Services; PCP Student in an Organized Health Care Education/Training Program; Visit Provider Radiology Diagnostic Radiology | DX: K80.20 Calculus of gallbladder without cholecystitis without obstruction (principal); K57.30 Diverticulosis of large intestine without perforation or abscess without bleeding; J90 Pleural effusion, not elsewhere classified; R18.8 Other ascites | CPT/HCPCS: 74176 ==

== ENCOUNTER 2024-06-08 05:16 | Outpatient (BNV) | payer MEDICARE, SELFPAY | END 2024-06-10 06:00 | PROVIDERS: Admitting Provider Student in an Organized Health Care Education/Training Program; Emergency Provider Emergency Medicine Emergency Medical Services; PCP Student in an Organized Health Care Education/Training Program; Visit Provider Radiology Diagnostic Radiology | DX: I51.7 Cardiomegaly (principal); R91.8 Other nonspecific abnormal finding of lung field | CPT/HCPCS: 71045 ==

== ENCOUNTER → 2024-06-08 05:16 | Outpatient (BNV) | payer MEDICARE, SELFPAY | PROVIDERS: Admitting Provider Student in an Organized Health Care Education/Training Program; Emergency Provider Emergency Medicine Emergency Medical Services; PCP Student in an Organized Health Care Education/Training Program; Visit Provider Physician Assistant | DX: I50.9 Heart failure, unspecified (principal) | CPT/HCPCS: 99232; 99233; 99497; 99499 ==

== ENCOUNTER → 2024-06-08 05:16 | Outpatient (BNV) | payer MEDICARE, SELFPAY | PROVIDERS: Admitting Provider Student in an Organized Health Care Education/Training Program; Emergency Provider Emergency Medicine Emergency Medical Services; PCP Student in an Organized Health Care Education/Training Program; Visit Provider Internal Medicine Cardiovascular Disease | DX: I48.91 Unspecified atrial fibrillation (principal); I51.89 Other ill-defined heart diseases | CPT/HCPCS: 99223 ==

== ENCOUNTER → 2024-06-08 05:16 | Outpatient (BNV) | payer MEDICARE, SELFPAY | PROVIDERS: Admitting Provider Student in an Organized Health Care Education/Training Program; Emergency Provider Emergency Medicine Emergency Medical Services; PCP Student in an Organized Health Care Education/Training Program; Visit Provider Internal Medicine Hypertension Specialist | DX: N17.9 Acute kidney failure, unspecified (principal); N18.9 Chronic kidney disease, unspecified | CPT/HCPCS: 99223; 99233 ==

== ENCOUNTER → 2024-06-14 | Outpatient (BNV) | payer MEDICARE, SELFPAY | PROVIDERS: Visit Provider Internal Medicine | DX: R78.81 Bacteremia (principal); I51.89 Other ill-defined heart diseases | CPT/HCPCS: 99222; 99499 ==